=== PATIENT | female | born 1940 | race Caucasian/White ===

== ENCOUNTER 2018-07-09 09:19 | Observation (INO) | payer OTHER ==
--- NOTE | 2018-07-09 10:09 | RAD REPORT ---
EXAM DESCRIPTION: CT - Head Brain Wo Cont - 07/09/2018 10:03 am CLINICAL HISTORY: DIZZINESS Drowsiness COMPARISON: Ct Stroke Brain Wo Cont dated 09/28/2016 TECHNIQUE: All CT scans are performed using dose optimization technique as appropriate and may inclu de automated exposure control or mA/KV adjustment according to patient size. FINDINGS: No intracranial hemorrhage, hydrocephalus or extra-axial fluid collection.Mild generalized brain atrophy is present with moderate periventricular and deep white matter chronic microvascular i schemic changes.No areas of brain edema or evidence of midline shift. The paranasal sinuses and mastoids are clear. The calvarium is intact. IMPRESSION: No acute intracranial abnormality.
--- NOTE | 2018-07-09 10:15 | RAD REPORT ---
EXAM DESCRIPTION: RAD - Chest Single View - 07/09/2018 10:10 am CLINICAL HISTORY: COUGH Chest pain. COMPARISON: Chest Single View dated 09/28/2016; CHEST PA AND LAT 2 VIEW dated 10/24/2014; CHEST PA AND LAT 2 VIEW dated 08/12/2010; CHEST PA AND LAT 2 VIEW dated 05/24/2002 FINDINGS: Portable technique limits examination quality. Mild interstitial pulmonary edema is noted. Calcified granuloma is present in the right lung, stable. The heart is moderately enlarged. Aortic atherosclerosis.Mild thoracic dextroscoliosis. IMPRESSION: Mild CHF.
[2018-07-09] MEDS ORDERED: ONDANSETRON 4 MG/2 ML VIAL ONE (10:25)
[2018-07-09] MEDS ORDERED: NA CHLORIDE 0.9% 1,000 ML ONE (10:25)
[2018-07-09] MEDS ORDERED: MECLIZINE HCL 12.5 MG TAB ONE (10:25)
[2018-07-09] MEDS ORDERED: FOLIC ACID 5 MG/ML VIAL ONE (10:26)
--- NOTE | 2018-07-09 10:35 | RAD REPORT ---
EXAM DESCRIPTION: US - CP - 07/09/2018 10:28 am CLINICAL HISTORY: DIZZINESS Syncope COMPARISON: Carotid Artery Bilateral dated 09/28/2016 TECHNIQUE: Real-time sonographic evaluation of both carotid systems was performed. Doppler interroga tion was performed with waveform tracing bilaterally. FINDINGS: Normal high resistance waveforms are noted in both external carotid arteries. The common c arotid arteries and internal carotid arteries show normal low resistance waveforms. Mild hard plaquing is seen in both carotid bulbs. Peak systolic and end diastolic velocity values and the ICA/CCA ratios are in the non-hemodynamically significant range. Antegrade flow seen in both vertebral arteries. IMPRESSION: Mild hard plaquing is seen in both carotid bulbs. No evidence of a hemodynamically significant stenosis.
[2018-07-09 10:57] LABS: Absolute Lymphocytes (CBC) 1.2 K/uL (0.7-4.9); Absolute Monocytes 0.4 K/uL (0.1-1.3); Absolute Neutrophil 4.6 K/uL (1.8-8.0); Basophils % 0.7 % (0-1.3); Eosinophils % 1.6 % (0-4.4); Hematocrit 40.7 % (36.0-45.0); Lymphocytes % 18.8 % (15.3-44.8); MPV 10.5 fL (7.6-11.3); RBC Red Blood Cell Count 4.02 M/uL (3.86-4.86)
[2018-07-09 11:12] LABS: Urine Blood 1+ (NEG); Urine Glucose NEGATIVE (NEG); Urine Protein NEGATIVE (NEG); Urine pH 7.5 (5.0-7.0)
[2018-07-09 11:14] LABS: ALT/SGPT 17 U/L (12-78); AST/SGOT 17 U/L (15-37); Albumin 3.6 g/dL (3.4-5.0); Alkaline Phosphatase 80 U/L (45-117); BUN Blood Urea Nitrogen 19 mg/dL (7-18); Bicarbonate 24 mmol/L (21-32); Bilirubin Direct 0.2 mg/dL (0-0.2); Bilirubin Total 0.7 mg/dL (0.2-1.0); C-Reactive Protein < 2.90 mg/L (<3.00); Glucose Level 103 mg/dL (74-106); Magnesium 2.2 mg/dL (1.8-2.4); NT PRO-BNP 829 pg/mL (<450); Potassium 3.8 mmol/L (3.5-5.1); Sodium Level 138 mmol/L (136-145); Troponin (Emerg Dept Use Only) < 0.02 ng/mL (0.0-0.045)
--- NOTE | 2018-07-09 11:30 | ER ---
Nurse's Notes [facility] Name: Jessica Bridges Age: 78 yrs Sex: Female : 1940 Arrival Date: 07/09/2018 Time: 09:23 Bed 6 Private MD: Amadou Celeste Diagnosis: Dizziness and giddiness;Nausea;Headache Presentation: 07/09 09:46 Presenting complaint: Patient states: Woke up at 0630 and felt normal. About 0730 jl7 sudden onset of severe dizziness and nausea. Transition of care: patient was not received from another setting of care. Onset of symptoms was July 09, 2018 at 07:30. Risk Assessment: Do you want to hurt yourself or someone else? Patient reports no desire to harm self or others. Initial Sepsis Screen: Does the patient meet any 2 criteria? No. Patient's initial sepsis screen is negative. Does the patient have a suspected source of infection? No. Patient's initial sepsis screen is negative. Care prior to arrival: None. 09:46 Method Of Arrival: Wheelchair [facility] 09:46 Acuity: HECTOR 3 jl7 Historical: - Allergies: 09:53 Codeine; jl7 - Home Meds: 10:04 atorvastatin 40 mg Oral tab 1 tab once daily [Active]; levothyroxine 137 mcg tab 1 tab aj once daily [Active]; lisinopril 20 mg Oral tab 1 tab once daily [Active]; meloxicam 15 mg Oral tab 1 tab once daily as needed for osteoarthritis [Active]; furosemide 20 mg Oral tab [Active]; aspirin 81 mg Oral TbEC 1 tab once daily [Active]; - PMHx: 09:53 Arthritis; Hyperlipidemia; Hypertension; Hypothyroidism; lymphedema; jl7 - Immunization history:: Adult Immunizations up to date. - Social history:: Smoking status: Patient/guardian denies using tobacco. - Family history:: not pertinent. - Ebola Screening: : No symptoms or risks identified at this time. Screenin:50 Abuse screen: Denies threats or abuse. Denies injuries from another. Nutritional aj screening: No deficits noted. Tuberculosis screening: No symptoms or risk factors identified. 14:29 Fall Risk None identified. aj Assessment: 10:50 General: Appears in no apparent distress. comfortable, Behavior is calm, cooperative, aj appropriate for age. Pain: Denies pain. Neuro: Level of Consciousness is awake, alert, obeys commands, Oriented to person, place, time, situation, Appropriate for age. Neuro: Dramatic Reader are equal bilaterally Moves all extremities. Full function Gait is unsteady, Speech is normal, Facial symmetry appears normal, Reports dizziness. Respiratory: Airway is patent Respiratory effort is even, unlabored, Respiratory pattern is regular, symmetrical. GI: Abdomen is obese. GI: Reports nausea, vomiting. Derm: Skin is intact, is healthy with good turgor, Skin is pink, warm \T\ dry. normal. 14:29 Reassessment: Patient appears in no apparent distress at this time. No changes from aj previously documented assessment. Patient and/or family updated on plan of care and expected duration. Pain level reassessed. Patient is alert, oriented x 3, equal unlabored respirations, skin warm/dry/pink. Family at bedside. Patient is urinating frequently, approx every 30 minutes. Bedside commode was provided to patient. Vital Signs: 09:53 BP 168 / 68; Pulse 73; Resp 19 S; Temp 97.8(O); Pulse Ox 96% on R/A; Weight 102.51 kg jl7 (R); Height 5 ft. 4 in. (162.56 cm) (R); Pain 0/10; 14:28 BP 143 / 65; Pulse 73; Resp 17; Pulse Ox 97% on R/A; aj 09:53 Body Mass Index 38.79 (102.51 kg, 162.56 cm) jl7 NIH Stroke Scale Scores: 09:48 NIHSS Score: 0 tere ED Course: 09:23 Patient arrived in ED. sb2 09:24 Amadou Celeste DO is Private Physician. sb2 09:33 Abhishek Jung MD is Attending Physician. tere 09:45 Araseli Logan, LENARD is Primary Nurse. jl7 09:52 Triage completed. jl7 09:53 Arm band placed on right wrist. jl7 10:03 CT Head Brain wo Cont In Process Unspecified. EDMS 10:05 Maria Elena Mejia, RN is Primary Nurse. aj 10:08 X-ray completed. Patient tolerated procedure well. Patient taken to ultrasound. via sg4 stretcher. 10:10 XRAY Chest (1 view) In Process Unspecified. EDMS 10:29 Ultrasound completed. Patient tolerated well. sg3 10:29 US Carotid Artery Bilateral In Process Unspecified. EDMS 10:50 Patient has correct armband on for positive identification. 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 Pulse aj ox on. NIBP on. 10:50 Inserted saline lock: 20 gauge in left antecubital area, using aseptic technique. aj 11:29 Macy Mehta MD is Hospitalizing Provider. tere 14:29 No provider procedures requiring assistance completed. Patient admitted, IV remains in aj place. intact. Administered Medications: 10:55 Drug: Zofran 4 mg Route: IVP; Site: left antecubital; bp 14:37 Follow up: Response: Nausea is decreased aj 10:57 Drug: Meclizine 50 mg Route: PO; aj 14:33 Follow up: Response: Marked relief of symptoms aj 10:58 Drug: NS 0.9% 1000 ml Route: IV; Rate: 125 ml/hr; Site: left antecubital; aj 14:38 Follow up: Response: No adverse reaction; IV Status: Order to discontinue infusion; IV aj Intake: 250ml 10:58 Drug: foLIC Acid 1 mg Route: IVPB; Site: left antecubital; aj 14:38 Follow up: Response: No adverse reaction; IV Status: Completed infusion; IV Intake: aj 0.2ml 10:59 Drug: NS 0.9% 500 ml Route: IV; Rate: bolus; Site: left antecubital; aj 14:39 Follow up: Response: No adverse reaction; IV Status: Completed infusion; IV Intake: aj 500ml 14:36 Drug: PlaVIX 75 mg Route: PO; aj 14:37 Follow up: Response: No adverse reaction aj 14:37 Not 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 aj 14:38 IV: 250ml; Total: 250ml. aj 14:39 IV: 500ml; Total: 750ml. aj Outcome: 11:30 Decision to Hospitalize by Provider. tere 14:29 Admitted to Med/surg accompanied by tech, family with patient, via wheelchair, room aj 229, Report called to Brandi WEINBERG 14:29 Condition: good 14:29 Instructed on the need for admit. 14:51 Patient left the ED. aj NIH Stroke Scale - NIH Stroke Score Date: 07/09/2018 Time: 09:48 Total Score = 0 1a. Level of Consciousness (LOC) - 0(Alert) 1b. Level of Consciousness (LOC) (Year \T\ Age) - 0(Both) 1c. LOC Commands (Open \T\ Closes Eyes/Inside Steward/Stewardess) - 0(Both) 2. Best Gaze (Lateral Gaze Paresis) - 0(Normal) 3. Visual Field Loss - 0(No visual loss) 4. Facial Palsy - 0(Normal) 5a. Left Arm: Motor (10-second hold) - 0(No drift) 5b. Right Arm: Motor (10-second hold) - 0(No drift) 6a. Left Leg: Motor (5-second hold - always test supine) - 0(No drift) 6b. Right Leg: Motor (5-second hold - always test supine) - 0(No drift) 7. Limb Ataxia (finger/nose \T\ heel/mendoza - test with eyes open) - 0(Absent) 8. Sensory Loss (pinprick arms/legs/face) - 0(Normal) 9. Best Language: Aphasia (description/naming/reading) - 0(No aphasia) 10. Dysarthria (speech clarity - read or repeat words) - 0(Normal) 11. Extinction and Inattention (visual/tactile/auditory/spatial/personal) - 0(No abnormality) Initials: tere Signatures: Dispatcher [employer] Maria Elena Graham RN RN aj Anderson, Corey, MD MD cha Leal, Jahala, RN RN jl7 Tevin Hernandez, Tiffanie Crowe RN sg3 Keri Reyes2 Nita Jang sg4
--- NOTE | 2018-07-09 11:31 | EDPHYS ---
Physician Documentation [facility] Name: Jessica Bridges Age: 78 yrs Sex: Female : 1940 Arrival Date: 07/09/2018 Time: 09:23 Bed 6 Private MD: Amadou Celeste ED Physician Abhishek Jung HPI: 07/09 09:46 This 78 yrs old Female presents to ER via Unassigned with complaints of tere Dizziness, Nausea. 09:46 The patient presents with dizziness. Onset: The symptoms/episode began/occurred this tere morning. Context: occurred at home. Modifying factors: The symptoms are alleviated by closing eyes, holding head still, the symptoms are aggravated by movement of head, changing position. Associated signs and symptoms: Pertinent positives: nausea, vomiting. Severity of symptoms: At their worst the symptoms were moderate in the emergency department the symptoms are unchanged. Patient's baseline: Neuro:. The patient has not experienced similar symptoms in the past. Historical: - Allergies: 09:53 Codeine; jl7 - Home Meds: 10:04 atorvastatin 40 mg Oral tab 1 tab once daily [Active]; levothyroxine 137 mcg tab 1 tab aj once daily [Active]; lisinopril 20 mg Oral tab 1 tab once daily [Active]; meloxicam 15 mg Oral tab 1 tab once daily as needed for osteoarthritis [Active]; furosemide 20 mg Oral tab [Active]; aspirin 81 mg Oral TbEC 1 tab once daily [Active]; - PMHx: 09:53 Arthritis; Hyperlipidemia; Hypertension; Hypothyroidism; lymphedema; jl7 - Immunization history:: Adult Immunizations up to date. - Social history:: Smoking status: Patient/guardian denies using tobacco. - Family history:: not pertinent. - Ebola Screening: : No symptoms or risks identified at this time. ROS: 09:46 Constitutional: Negative for fever, chills, and weight loss, Eyes: Negative for injury, tere pain, redness, and discharge, ENT: Negative for injury, pain, and discharge, Neck: Negative for injury, pain, and swelling, Cardiovascular: Negative for chest pain, palpitations, and edema, Respiratory: Negative for shortness of breath, cough, wheezing, and pleuritic chest pain, Abdomen/GI: Negative for abdominal pain, nausea, vomiting, diarrhea, and constipation, Back: Negative for injury and pain, : Negative for injury, bleeding, discharge, and swelling, MS/Extremity: Negative for injury and deformity, Skin: Negative for injury, rash, and discoloration, Neuro: Negative for headache, weakness, numbness, tingling, and seizure, Psych: Negative for depression, anxiety, suicide ideation, homicidal ideation, and hallucinations, Allergy/Immunology: Negative for hives, rash, and allergies, Endocrine: Negative for neck swelling, polydipsia, polyuria, polyphagia, and marked weight changes, Hematologic/Lymphatic: Negative for swollen nodes, abnormal bleeding, and unusual bruising. Exam: 09:48 Constitutional: This is a well developed, well nourished patient who is awake, alert, tere and in no acute distress. Head/Face: Normocephalic, atraumatic. Eyes: Pupils equal round and reactive to light, extra-ocular motions intact. Lids and lashes normal. Conjunctiva and sclera are non-icteric and not injected. Cornea within normal limits. Periorbital areas with no swelling, redness, or edema. ENT: Nares patent. No nasal discharge, no septal abnormalities noted. Tympanic membranes are normal and external auditory canals are clear. Oropharynx with no redness, swelling, or masses, exudates, or evidence of obstruction, uvula midline. Mucous membranes moist. Neck: Trachea midline, no thyromegaly or masses palpated, and no cervical lymphadenopathy. Supple, full range of motion without nuchal rigidity, or vertebral point tenderness. No Meningismus. Chest/axilla: Normal chest wall appearance and motion. Nontender with no deformity. No lesions are appreciated. Cardiovascular: Regular rate and rhythm with a normal S1 and S2. No gallops, murmurs, or rubs. Normal PMI, no JVD. No pulse deficits. Respiratory: Lungs have equal breath sounds bilaterally, clear to auscultation and percussion. No rales, rhonchi or wheezes noted. No increased work of breathing, no retractions or nasal flaring. Abdomen/GI: Soft, non-tender, with normal bowel sounds. No distension or tympany. No guarding or rebound. No evidence of tenderness throughout. Back: No spinal tenderness. No costovertebral tenderness. Full range of motion. Skin: Warm, dry with normal turgor. Normal color with no rashes, no lesions, and no evidence of cellulitis. MS/ Extremity: Pulses equal, no cyanosis. Neurovascular intact. Full, normal range of motion. Neuro: Awake and alert, GCS 15, oriented to person, place, time, and situation. Cranial nerves II-XII grossly intact. Motor strength 5/5 in all extremities. Sensory grossly intact. Cerebellar exam normal. Normal gait. Psych: Awake, alert, with orientation to person, place and time. Behavior, mood, and affect are within normal limits. Vital Signs: 09:53 BP 168 / 68; Pulse 73; Resp 19 S; Temp 97.8(O); Pulse Ox 96% on R/A; Weight 102.51 kg jl7 (R); Height 5 ft. 4 in. (162.56 cm) (R); Pain 0/10; 14:28 BP 143 / 65; Pulse 73; Resp 17; Pulse Ox 97% on R/A; aj 09:53 Body Mass Index 38.79 (102.51 kg, 162.56 cm) jl7 NIH Stroke Scale Scores: 09:48 NIHSS Score: 0 tere MDM: 09:33 Patient medically screened. tere 09:50 Data reviewed: vital signs, nurses notes, lab test result(s), EKG, radiologic studies, [facility] CT scan, doppler, plain films. 01 09:45 Order name: Basic Metabolic Panel [facility] 07/09 09:45 Order name: CBC with Diff [facility] 07/09 09:45 Order name: LFT's; Complete Time: 11:53 [facility] 07/09 09:45 Order name: Magnesium; Complete Time: 11:53 [facility] 07/09 09:45 Order name: NT PRO-BNP; Complete Time: 11:53 [facility] 07/09 09:45 Order name: PT-INR; Complete Time: 11:53 [facility] 07/09 09:45 Order name: Troponin (emerg Dept Use Only); Complete Time: 11:53 [facility] 07/09 09:45 Order name: XRAY Chest (1 view); Complete Time: 10:25 [facility] 07/09 09:45 Order name: Urine Culture [facility] 07/09 09:45 Order name: Sed Rate; Complete Time: 11:53 [facility] 07/09 09:45 Order name: CRP; Complete Time: 11:53 [facility] 07/09 09:46 Order name: Basic Metabolic Panel; Complete Time: 11:53 EDMS 01/06 09:46 Order name: CBC with Automated Diff; Complete Time: 11:53 [facility] 07/09 10:47 Order name: Urine Dipstick--Ancillary (enter results); Complete Time: 11:53 07/09 09:45 Order name: EKG; Complete Time: 09:47 [facility] 07/09 09:45 Order name: Cardiac monitoring; Complete Time: 11:00 [facility] 07/09 09:45 Order name: EKG - Nurse/Tech; Complete Time: 11:00 [facility] 07/09 09:45 Order name: IV Saline Lock; Complete Time: 11:00 [facility] 07/09 09:45 Order name: Labs collected and sent; Complete Time: 11:00 [facility] 07/09 09:45 Order name: O2 Per Protocol; Complete Time: 11:00 [facility] 07/09 09:46 Order name: CT Head Brain wo Cont; Complete Time: 10:25 [facility] 07/09 09:46 Order name: US Carotid Artery Bilateral; Complete Time: 11:12 [facility] 07/09 11:35 Order name: CONS Physician Consult [facility]WI 07/09 09:45 Order name: O2 Sat Monitoring; Complete Time: 11:00 [facility] 07/09 09:45 Order name: Urine Dipstick-Ancillary (obtain specimen); Complete Time: 11:01 [facility] Administered Medications: 10:55 Drug: Zofran 4 mg Route: IVP; Site: left antecubital; bp 14:37 Follow up: Response: Nausea is decreased aj 10:57 Drug: Meclizine 50 mg Route: PO; aj 14:33 Follow up: Response: Marked relief of symptoms aj 10:58 Drug: NS 0.9% 1000 ml Route: IV; Rate: 125 ml/hr; Site: left antecubital; aj 14:38 Follow up: Response: No adverse reaction; IV Status: Order to discontinue infusion; IV aj Intake: 250ml 10:58 Drug: foLIC Acid 1 mg Route: IVPB; Site: left antecubital; aj 14:38 Follow up: Response: No adverse reaction; IV Status: Completed infusion; IV Intake: aj 0.2ml 10:59 Drug: NS 0.9% 500 ml Route: IV; Rate: bolus; Site: left antecubital; aj 14:39 Follow up: Response: No adverse reaction; IV Status: Completed infusion; IV Intake: aj 500ml 14:36 Drug: PlaVIX 75 mg Route: PO; aj 14:37 Follow up: Response: No adverse reaction aj 14:37 Not Given (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 Preliminary diagnosis are Dizziness and giddiness, Nausea, Headache. - Bed requested for Telemetry/MedSurg (observation). - Status is Observation. aj - Condition is Fair. - Problem is new. - Symptoms have improved. UTI on Admission? No NIH Stroke Scale - NIH Stroke Score Date: 07/09/2018 Time: 09:48 Total Score = 0 1a. Level of Consciousness (LOC) - 0(Alert) 1b. Level of Consciousness (LOC) (Year \T\ Age) - 0(Both) 1c. LOC Commands (Open \T\ Closes Eyes/Library Aide) - 0(Both) 2. Best Gaze (Lateral Gaze Paresis) - 0(Normal) 3. Visual Field Loss - 0(No visual loss) 4. Facial Palsy - 0(Normal) 5a. Left Arm: Motor (10-second hold) - 0(No drift) 5b. Right Arm: Motor (10-second hold) - 0(No drift) 6a. Left Leg: Motor (5-second hold - always test supine) - 0(No drift) 6b. Right Leg: Motor (5-second hold - always test supine) - 0(No drift) 7. Limb Ataxia (finger/nose \T\ heel/mendoza - test with eyes open) - 0(Absent) 8. Sensory Loss (pinprick arms/legs/face) - 0(Normal) 9. Best Language: Aphasia (description/naming/reading) - 0(No aphasia) 10. Dysarthria (speech clarity - read or repeat words) - 0(Normal) 11. Extinction and Inattention (visual/tactile/auditory/spatial/personal) - 0(No abnormality) Initials: tere Signatures: Dispatcher [employer] Phuong Galan RN Maria Elena Ariza RN RN Abhishek Santizo MD MD cha Leal, Jahala, RN RN jlTevin Yates RN RN bp Corrections: (The following items were deleted from the chart) 09:48 09:46 Neck: Negative for tere tere 14:11 11:30 Hospitalization Ordered by Macy Mehta MD for Observation. Preliminary dw diagnosis is Dizziness and giddiness; Nausea; Headache. Bed requested for Telemetry/MedSurg (observation). Status is Observation. Condition is Fair. Problem is new. Symptoms have improved. UTI on Admission? No. tere 14:51 14:11 07/09/2018 11:30 Hospitalization Ordered by Macy Mehta MD for aj Observation. Preliminary diagnosis is Dizziness and giddiness; Nausea; Headache. Bed requested for Telemetry/MedSurg (observation). Status is Observation. Condition is Fair. Problem is new. Symptoms have improved. UTI on Admission? No. dw
--- NOTE | 2018-07-09 14:24 | P.HP ---
Certification for Inpatient Patient admitted to: Observation With expected LOS: <2 Midnights Patient will require the following post-hospital care: None Practitioner: I am a practitioner with admitting privileges, knowledge of patient current condition, hospital course, and medical plan of care. Services: Services provided to patient in accordance with Admission requirements found in Title 42 Section 412.3 of the Code of Federal Regulations Patient History Date of Service: 07/09/18 History of Present Illness: Patient is a 78-year-old female with significant past medical history who presented to the ED complaining of having some dizziness. Patient stated that when she woke up this morning and got out of bed was going to the bathroom she started having dizziness and had room spinning around her. Her caught her before she fell down to the floor. Patient also complains of having some nausea and vomiting that started this morning as well. Patient has never had similar episodes in the past as a 1st time it has happened. No other neurological symptoms were noted. Patient denies having any chest pain shortness of breath, constipation or any other associated symptoms at this time. Allergies codeine Allergy (Severe, Verified 07/10/18 07:36) Nausea/Vomiting Home Medications: Atorvastatin Calcium [Lipitor] 40 mg PO BEDTIME 09/28/16 Levothyroxine [Synthroid*] 137 mcg PO [id number] 09/28/16 Lisinopril [Prinivil*] 20 mg PO DAILY 09/28/16 Meloxicam [Mobic] 15 mg PO DAILY 09/28/16 Aspirin [Ecotrin 81 MG] 162 mg PO DAILY #60 tablet. 09/29/16 Cholecalciferol (Vitamin D3) [Vitamin D3] 1 cap PO DAILY 07/09/18 Multivitamin [Daily Multivitamin] 1 tab PO DAILY 07/09/18 Meclizine HCl 12.5 mg PO BID PRN #30 tablet 07/10/18 - Past Medical/Surgical History Diabetic: No -: HTN -: arthritis -: hyperlipidemia -: knee surgery - Family History Father -: Lung disease, Other (see notes) Notes: arthritis Mother -: Stroke - Social History Alcohol use: No CD- Drugs: No Caffeine use: Yes Review of Systems 10-point ROS is otherwise unremarkable Physical Examination - Physical Exam General: Alert, In no apparent distress HEENT: Atraumatic, PERRLA, Mucous membr. moist/pink, Other (Nystagmus noted), EOMI, Sclerae nonicteric Neck: Supple, 2+ carotid pulse no bruit, No LAD, Without JVD or thyroid abnormality Respiratory: Clear to auscultation bilaterally, Normal air movement Cardiovascular: Regular rate/rhythm, Normal S1 S2 Gastrointestinal: Normal bowel sounds, No tenderness Musculoskeletal: No tenderness Integumentary: No rashes Neurological: Normal gait, Normal speech, Normal strength at 5/5 x4 extr, Normal tone, Normal affect Lymphatics: No axilla or inguinal lymphadenopathy - Studies Laboratory Data (last 24 hrs) 07/09/18 10:44: PT 11.8, INR 1.00 07/09/18 10:44: WBC 6.3, Hgb 13.3, Hct 40.7, Plt Count 212 07/09/18 10:44: Sodium 138, Potassium 3.8, BUN 19 H, Creatinine 0.56, Glucose 103, Magnesium 2.2, Total Bilirubin 0.7, AST 17, ALT 17, Alkaline Phosphatase 80 Assessment and Plan - Problems (Diagnosis) (1) BPPV (benign paroxysmal positional vertigo) Onset Date: 07/10/18 Status: Acute Plan: Patient is no vomiting along with vertical most likely consistent with benign paroxysmal positional vertigo secondary to dehydration -will admit the patient to rule out any acute abnormalities. -brain MRI is pending at this time. Neurology consult is pending at this time as well. -patient will be started on meclizine p.r.n. at this time. -IV fluid Qualifiers: Laterality: unspecified laterality Qualified Code(s): H81.10 - Benign paroxysmal vertigo, unspecified ear (2) Intractable nausea and vomiting Onset Date: 07/10/18 Status: Acute Plan: IV Zofran. Qualifiers: Vomiting type: cyclical vomiting Qualified Code(s): G43.A1 - Cyclical vomiting, intractable (3) Dizziness Onset Date: 09/29/16 Status: Acute Plan: Fall precautions given. (4) Near syncope Onset Date: 09/29/16 Status: Acute Plan: Fall precautions given - Plan Patient will be admitted to the medical-surgical floor for rule out of any acute abnormality and will be seen by neurology here in the hospital. Discharge Plan: Home Plan to discharge in: 48 Hours - Advance Directives Does patient have a Living Will: No Does patient have a Durable POA for Healthcare: No - Code Status/Comfort Care Code Status Assessed: Yes Critical Care: No
[2018-07-09] MEDS ORDERED: CLOPIDOGREL 75 MG TABLET ONE (14:44)
[2018-07-09] MEDS ORDERED: NA CHLORIDE 0.9% 1,000 ML IV SCH (15:07)
[2018-07-09] MEDS ORDERED: ACETAMINOPHEN 500 MG TAB PO PRN (15:07)
[2018-07-09] MEDS ORDERED: MECLIZINE HCL 12.5 MG TAB PO PRN (15:07)
[2018-07-09] MEDS ORDERED: ONDANSETRON 4 MG/2 ML VIAL IV PRN (15:07)
[2018-07-09 16:11] VITALS: BMI 38.7
[2018-07-09] MEDS ORDERED: ENOXAPARIN 40 MG/0.4 ML SQ SCH (17:00)
[2018-07-10 00:15] VITALS: O2SAT 94
--- NOTE | 2018-07-10 06:26 | EKG ---
Test Date: 2018-07-09 Test Time: 10:44:47 Rolling Machine Operator: ELEN MEASUREMENT RESULTS: Intervals: Rate: 74 IN: 180 QRSD: 110 QT: 428 QTc: 475 [place]: P: 76 IN: 180 QRS: -21 T: 69 INTERPRETIVE STATEMENTS: Normal sinus rhythm Normal ECG Compared to ECG 09/28/2016 10:32:18 Left ventricular hypertrophy no longer present Electronically Signed On 07-10-18 06:19:38 BOWLING BALL MOLDER by Martin Vinson
[2018-07-10 06:27] LABS: Absolute Monocytes 0.5 K/uL (0.1-1.3); Absolute Neutrophil 2.7 K/uL (1.8-8.0); Basophils % 0.6 % (0-1.3); Eosinophils % 5.8 % (0-4.4); Lymphocytes % 35.9 % (15.3-44.8); MPV 10.3 fL (7.6-11.3); Monocytes % 9.4 % (3.3-12.3); RBC Red Blood Cell Count 3.83 M/uL (3.86-4.86)
[2018-07-10 06:48] LABS: ALT/SGPT 16 U/L (12-78); AST/SGOT 15 U/L (15-37); Albumin 3.5 g/dL (3.4-5.0); Alkaline Phosphatase 74 U/L (45-117); BUN Blood Urea Nitrogen 16 mg/dL (7-18); Bicarbonate 28 mmol/L (21-32); Bilirubin Total 0.7 mg/dL (0.2-1.0); Glucose Level 85 mg/dL (74-106); Potassium 3.9 mmol/L (3.5-5.1); Protein, Total 6.7 g/dL (6.4-8.2); Sodium Level 143 mmol/L (136-145)
[2018-07-10] MEDS ORDERED: POTASSIUM CL SA 10 MEQ TAB PO ONE (07:23)
--- NOTE | 2018-07-10 12:56 | RAD REPORT ---
EXAM DESCRIPTION: MRI - Brain Wo Cont - 07/10/2018 12:47 pm CLINICAL HISTORY: Presyncope Headache, nausea, drowsiness COMPARISON: Head Brain Wo Cont dated 07/09/2018; Carotid Artery Bilateral dated 07/09/2018; Brain Wo Con t dated 09/28/2016; Ct Stroke Brain Wo Cont dated 09/28/2016 TECHNIQUE: Multi-sequence, multiplanar MR imaging of the brain was performed without contrast. FINDINGS: No intracranial hemorrhage, hydrocephalus or extra-axial fluid collections. Moderate confl uent T2 and FLAIR hyperintensity in the periventricular and deep white matter. DWI is negative for ac sun'aq CVA. Degenerative changes are present in the upper cervical spine with spondylosis. Trace mastoid fluid is present. Paranasal sinuses appear clear. IMPRESSION: No acute intracranial abnormality seen. Moderate chronic microvascular ischemic changes are seen. Prominent spondylosis with probable spinal stenosis in the upper cervical spine.
[2018-07-10 14:07] VITALS: BP 152/70; TEMP 98.7
--- NOTE | 2018-07-10 16:06 | P.SSS ---
Patient History Date of Service: 07/10/18 History of Present Illness: Patient is a 78-year-old female with significant past medical history who presented to the ED complaining of having some dizziness. Patient stated that when she woke up this morning and got out of bed was going to the bathroom she started having dizziness and had room spinning around her. Her caught her before she fell down to the floor. Patient also complains of having some nausea and vomiting that started this morning as well. Patient has never had similar episodes in the past as a 1st time it has happened. No other neurological symptoms were noted. Patient denies having any chest pain shortness of breath, constipation or any other associated symptoms at this time. Allergies codeine Allergy (Severe, Verified 07/10/18 07:36) Nausea/Vomiting Home Medications: Atorvastatin Calcium [Lipitor] 40 mg PO BEDTIME 09/28/16 Levothyroxine [Synthroid*] 137 mcg PO [id number] 09/28/16 Lisinopril [Prinivil*] 20 mg PO DAILY 09/28/16 Meloxicam [Mobic] 15 mg PO DAILY 09/28/16 Aspirin [Ecotrin 81 MG] 162 mg PO DAILY #60 tablet. 09/29/16 Cholecalciferol (Vitamin D3) [Vitamin D3] 1 cap PO DAILY 07/09/18 Multivitamin [Daily Multivitamin] 1 tab PO DAILY 07/09/18 Meclizine HCl 12.5 mg PO BID PRN #30 tablet 07/10/18 - Past Medical/Surgical History Has patient received pneumonia vaccine in the past: Yes Diabetic: No -: HTN -: arthritis -: hyperlipidemia -: knee surgery - Family History Father -: Lung disease, Other (see notes) Notes: arthritis Mother -: Stroke - Social History Smoking Status: Never smoker Alcohol use: No CD- Drugs: No Caffeine use: Yes Place of Residence: Home Review of Systems 10-point ROS is otherwise unremarkable Physical Examination - Vital Signs Temperature: 98.7 F Blood Pressure: 152/70 Pulse: 74 Respirations: 20 Pulse Ox (%): 98 - Physical Exam General: Alert, In no apparent distress HEENT: Atraumatic, PERRLA, Mucous membr. moist/pink, EOMI, Sclerae nonicteric Neck: Supple, 2+ carotid pulse no bruit, No LAD, Without JVD or thyroid abnormality Respiratory: Clear to auscultation bilaterally, Normal air movement Cardiovascular: Regular rate/rhythm, Normal S1 S2 Gastrointestinal: Normal bowel sounds, No tenderness Musculoskeletal: No tenderness Integumentary: No rashes Neurological: Normal gait, Normal speech, Normal strength at 5/5 x4 extr, Normal tone, Normal affect Lymphatics: No axilla or inguinal lymphadenopathy - Diagnosis (Problem(s)) (1) BPPV (benign paroxysmal positional vertigo) Onset Date: 07/10/18 Status: Acute Plan: Patient is no vomiting along with vertical most likely consistent with benign paroxysmal positional vertigo secondary to dehydration -Brain MRI was negative. Patient is vertigo had resolved. -neurology recommended patient to be discharged home safely with prescription of meclizine p.r.n.. Qualifiers: Laterality: unspecified laterality Qualified Code(s): H81.10 - Benign paroxysmal vertigo, unspecified ear (2) Intractable nausea and vomiting Onset Date: 07/10/18 Status: Resolved Qualifiers: Vomiting type: cyclical vomiting Qualified Code(s): G43.A1 - Cyclical vomiting, intractable (3) Dizziness Onset Date: 09/29/16 Status: Resolved (4) Near syncope Onset Date: 09/29/16 Status: Acute - Disposition Disposition: ROUTINE DISCHARGE Condition: GOOD Diet: Regular Activity: Ad kalia
--- NOTE | 2018-07-10 19:06 | CON ---
Date of Consultation: 07/10/2018 Time: 1330. Reason: Vertigo. History: An 78-year-old lady with a past medical history significant for hyperlipidemia and hyperten adela as well as hypothyroidism. She was in her usual state of health until yesterday when she had re latively abrupt onset of vertigo. It occurred while she was standing, getting ready to go to the [facility]. She nearly fell. There was some associated nausea, slight headache, but no diplopia, dysarthri a, perioral numbness, extremity weakness, or emesis. Brought to the emergency department. CT scan o f the brain in the emergency department unremarkable. Given some meclizine 50 and that resulted in i mprovement in her symptoms. There was no aural fullness, tinnitus, or otalgia associated with the ep isode. Labs are normal. Sedimentation rate 13. Cardiac evaluation unremarkable. Creatinine 0.56 i n the ER. Consultation was requested. Past Medical History: As alluded to. Medications: Routinely multivitamin, vitamin D, Lipitor has been added, aspirin, meloxicam, Prinivil , Synthroid, and meclizine 12.5 as needed presently. Allergies: CODEINE. Social History: . No longer smokes. Normally independent with activities of daily living. Family History: Noncontributory. Review of Systems: General: Good health. Eyes: No diplopia. Ears, Nose, and Throat: No dysarthria. Cardiovascular: Hypertension. Pulmonary: Negative. GI: Nausea with the episode. : Negative. Musculoskeletal: Negative. Neurologic: As noted. Psychiatric: Negative. Endocrine: Hypothyroidism. Hematologic: Negative. Physical Examination: Vital Signs: 97.8, 57, 18, 144/71. General: A pleasant lady, sitting in bed, in no distress, awake, alert, oriented to time, person, pl ginette, and situation. HEENT: Tympanic membranes clear. Pupils reactive. Ocular motion full. Ramirez full. No nystagmus. Head thrust test to right does demonstrate catch-up ocular saccade, suggesting labyrinthine dysfunc tion. Facial strength and sensation normal. Tongue protrudes evenly. Soft palate elevates symmetri asael bilaterally. Extremities: Strength full. Sensation intact. Reflexes 1/4. Symmetric toes are downgoing. Cerebe llar exam demonstrates no ataxia. She is able to ambulate with a cane. Pertinent Laboratory Data: As noted in history of present illness. Brain MRI unremarkable, no acute infarct. Prominent spondylosis and possible stenosis in the upper cervical spine unrelated to sympt om complex. Impression: Vertigo, likely viral labyrinthitis. Problem was not particularly positional. Plan: I think she is safe to go home. Continue Antivert as needed. Taper that down over the ensuin g 3 to 4 days. Thank you for the consult. LILI Voice ID: [id number] Report ID: [id number]
== END 2018-07-10 13:54 | disposition home or self-care (01) ==
LOC: ER 09:19 → ERHOLD 11:33 → 2ND 14:30
PROVIDERS: ADMIT Family Medicine; ATTEND Family Medicine
DX: H81.10 Benign paroxysmal vertigo, unspecified ear (principal); R11.2 Nausea with vomiting, unspecified; I10 Essential (primary) hypertension; E78.5 Hyperlipidemia, unspecified; E03.9 Hypothyroidism, unspecified
CPT/HCPCS: 36415; 70450; 70551; 71045; 80048; 80053; 80076; 81003; 83735; 83880; 84484; 85025 ×2; 85610; 85652; 86140; 87088; 93005; 93880; 96365; 96366; 96375; 99285; G0378 ×2; J1650; J2405; J7030 ×2; 87086

== ENCOUNTER 2020-09-09 15:21 | Inpatient (IN) | payer OTHER ==
--- NOTE | 2020-09-09 13:58 | R.PREADM ---
PRE-ADMISSION SCREENING FORM SCREENING DATE AND TIME 09/09/2020 09:35 (SILK SPREADER) ANTICIPATED REHAB ADMISSION DATE 09/11/2020 REFERRING FACILITY [facility] REFERRAL DATE AND TIME 09/09/2020 09:37 (SILK SPREADER) REFERRAL ROOM# S5 10 ACUTE ADMIT DATE 09/05/2020 Previous Rehabilitation(s): No. 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 Lloyd Dupont M.D. MR# [id number] NAME ENZO BRIDGES ADDRESS [address] [place] [address] PHONE [facility] [id number] DATE OF 1940 AGE 80 SSN# [id number] GENDER female MARITAL STATUS RACE unknown race PREF. LANGUAGE (IF NON-SWEDISH) Ukrainian ADMIT FROM 02 - [facility] PRE-HOSPITAL LIVING SETTING 01 - Home (private home/apt. board/care, assisted living, halfway, transitional living) HOME TYPE AND DETAILS Type of home: single family house # of levels in the residence: 1 # of steps within the residence: 0 PRE-HOSPITAL LIVING WITH Family/Relatives FAMILY SUPPORT Yes PRIMARY FAMILY CONTACT NAME ELY BRIDGES PRIMARY FAMILY CONTACT PHONE PRIMARY FAMILY CONTACT RELATIONSHIP Spouse PHONE PRIMARY FAMILY CONTACT ON ADM.? no IS PRIMARY FAMILY CONTACT AUTH. REP.? no 1ST EMERGENCY CONTACT ELY BRIDGES 1ST CONTACT PHONE 1ST CONTACT RELATIONSHIP Spouse PHONE 1ST CONTACT ON ADM. no IS 1ST CONTACT AUTH. REP.? no PHONE 2ND CONTACT ON ADM.? no PATIENT EMPLOYMENT STATUS Retired (for age) PATIENT EMPLOYER No Employer PAYOR INFORMATION: 1ST PAYOR NAME MEDICARE 1ST PAYOR PHONE 1ST PAYOR INJURY/ILLNESS DUE TO ACCIDENT? No ANOTHER LIBERTARIAN RESPONSIBLE? No PRIMARY REHAB/ACUTE DIAGNOSIS: LEFT DISTAL FEMUR FRACTURE ONSET DATE 09/05/2020 REHAB IMPAIRMENT CATEGORY (BRUNO): 07 Fracture of LE (FracLE) does NOT meet 60% rule AFFECTED EXTREMITIES: LLE PRIMARY DIAGNOSIS-RELATED SURGERIES: LEFT KNEE REVISION TOTAL KNEE ARTHROPLASTY SUMMARY OF ACUTE HOSPITALIZATION: Pt. is a 80 yo Right-handed female of unknown race. She has past medical history significant for DX on MEDIC. On 09/05/2020 she was admitted to [facility] with diagnosis LEFT DISTAL FEMUR FRACTURE. Her impairment category is Orthopaedic Disorders 08 - Femur (Shaft) Fracture (08.2). Pre-morbidly, Pt. was independent/mod-I in Balance, Endurance, Transfers Control, and Locomotion; and she had good Safety Awareness and Communication. Currently, she has deficits of Locomotion, Balance, Transfers Control, Endurance, and Sphincter Contr ol. Pt. is now referred to [facility] for acute in-patient rehabilitation in order to maximize patient's functional independence in activities of daily living, strength, ROM, and mobi lity. Patient has realistic goal of being discharged at assistance level 7-Ind to reside at Home with Fami ly/Relatives. Ms. Bridges is a 80 year -old female that lives indepently at home with her in a single story house. She ambulates with a cane. She has a history of hypertension, hyperlipidemia, rheumatoid arthritis presenting with mechanical fall having sustained a left distal femur fracture. She fell while pushing her husand in a wheel chair. Her procedure performed was left knee revision total arthopasty, on 09/06/20. The patient would most defi nitely benefit from acute inpatient patient to come to acute inpatient rehab for approximately 7-10 days in order to return to her prior level of care. She is now being transferred to [facility] Inpatient rehabilitation and is medically stable with relatively stable labs. She is now medically stable but in need of 24 hour nursing, doctor supervision and oversight while receiving active and ongoing intensive (PT, OT therapy a day/15 hours per week and receive care with intensive interdisciplinary approach. COVID-19 screening performed; spoke with patient via phone. Patient denies new onset of fever, cough, difficulty breathing, sore throat, body aches and non-allergy nasal congestion in the past 24 hours. Patient denies travel outside of [place] in the past 14 days. Patient denies any contact with someone who has a confirmed diagnosis of or is under investigation for COVID-19 in the past 14 days. Patient has been tested negative for COVID- 19. PAST MEDICAL HISTORY HYPERLIPIDEMIA HYPERTENSION RHEUMATOID ARTHRITIS PAST SURGICAL HISTORY: BLE TKA'S IN 2010 MEDICATION ALLERGIES: CODEINE SULFATE ENVIRONMENTAL ALLERGIES: - Substance Allergies None Known - Other Allergies None Known CODE STATUS: Full code WEIGHT/HEIGHT/BMI: WEIGHT 182 lbs HEIGHT 5' 4" BMI 31.2 DIET: - Diet Type Regular - Diet - Solid Texture Regular - Diet - Liquid Texture Regular - Tube Feed N/A REVIEW OF SYSTEMS: - Gen Alert and awake Lying in bed No apparent distress Oriented to: person, time, and place - Vital Signs Temperature: 97.7 F SBP/DBP: 108/77 Pulse: 69 Resp: 14 Vital signs stable, afebrile - CVS RRR VITAL SIGNS Temperature: 97.7 F SBP/DBP: 108/77 Pulse: 69 Resp: 14 Vital signs stable, afebrile MEDICATIONS/TREATMENT: Other- See attached MAR (Medication Administration Record). CURRENT SPHINCTER CONTROL: Pre-hospital bladder status: unspecified # of bladder accidents in the last 7 days prior to screenin Pre-hospital bowel status: unspecified # of bowel accidents in the last 7 days prior to screenin Last Bowel Movement Date: 09/09/2020 CURRENT LOCOMOTION STATUS: distance walked 2 feet DETAILED CURRENT FUNCTIONAL STATUS: - Bladder accident frequency: 7-Ind - No accidents in the past 7 days - Bowel accident frequency: 7-Ind - No accidents in the past 7 days - Walking score based on distance walked: 0(N/A) score based on distance walked: 1(<=50ft) - Wheelchair score based on distance traveled: 0(N/A) QI SCORES: - Self-Care A. Eating 04-Supervision or touching assistance B. Oral hygiene 03-Partial/moderate assistance C. Toileting hygiene 03-Partial/moderate assistance E. Shower/bathe self 03-Partial/moderate assistance F. Upper body dressing 03-Partial/moderate assistance G. Lower body dressing 03-Partial/moderate assistance H. Putting on/taking off footwear 88-Not attempted due to medical condition or safety concerns - Mobility A. Roll left and right 04-Supervision or touching assistance B. Sit to lying 04-Supervision or touching assistance C. Lying to sitting on side of bed 03-Partial/moderate assistance D. Sit to stand 03-Partial/moderate assistance E. Chair/uxw-tb-xjuic transfer 03-Partial/moderate assistance F. Toilet transfer 03-Partial/moderate assistance G. Car transfer 88-Not attempted due to medical condition or safety concerns I. Walk 10 feet 88-Not attempted due to medical condition or safety concerns J. Walk 50 feet with two turns 88-Not attempted due to medical condition or safety concerns K. Walk 150 feet 88-Not attempted due to medical condition or safety concerns L. Walking 10 feet on uneven surfaces 88-Not attempted due to medical condition or safety concerns M. 1 step (curb) 88-Not attempted due to medical condition or safety concerns N. 4 steps 88-Not attempted due to medical condition or safety concerns O. 12 steps 88-Not attempted due to medical condition or safety concerns P. Picking up object 88-Not attempted due to medical condition or safety concerns R. Wheel 50 feet with two turns 88-Not attempted due to medical condition or safety concerns S. Wheel 150 feet 88-Not attempted due to medical condition or safety concerns - Bladder and Bowel Bladder continence Bowel continence - Endurance Fair - Balance Fair - Safety Awareness Fair CURRENT FUNC. DEFICITS: Self-Care, Mobility, Endurance, Balance, and Safety Awareness CURRENT / PREVIOUS ASSISTIVE DEVICES: Rolling Walker HISTORY OF FALLS. HAS THE PATIENT HAD TWO OR MORE FALLS IN THE PAST YEAR OR ANY FALL WITH INJURY IN T HE PAST YEAR?: No PRIOR SURGERY. DID THE PATIENT HAVE MAJOR SURGERY DURING THE 100 DAYS PRIOR TO ADMISSION?: No THERAPY NOTES FROM ACUTE CARE: Attached. SPECIAL NEEDS: - Safety Concerns Skin breakdown precautions needed due to skin breakdown risk PRECAUTIONS: - Weight Bearing Precaution WBAT left LE PATIENT NEEDS ACTIVE AND ONGOING THERAPEUTIC INTERVENTION OF MULTIPLE THERAPY DISCIPLINES, INCLUDING: - Dietary and Nutrition Adequate Nutrition. Nutritional Education. Nutritional Supplements. PATIENT NEEDS CLOSE MEDICAL SUPERVISION BY A REHABILITATION PHYSICIAN FOR: Coordination of Treatment Team PATIENT REQUIRES 24X7 REHAB NURSING FOR MEDICAL AND FUNCTIONAL MGT. OF THE FOLLOWING DEFICITS: Disease Management Medication Management Patient/Family Education Providing Safe Environment PATIENT REQUIRES INTENSIVE, COORDINATED INTERDISCIPLINARY APPROACH TO REHAB: Arranging Home Equipment/Services Discharge Planning Family Intervention/Training Cold Molding Press Operator/Case Management PATIENT REHAB POTENTIAL: Tucker BRIDGES is able and expected to receive 3 hours of individualized therapy daily on at least 5 of ev mervin 7 days Tucker BRIDGES's prognosis for significant practical improvement within a reasonable period of time appear s Good Expected level of measurable improvement will be of a practical value to Tucker BRIDGES's functional capac ity or adaptations to impairments Has a viable Discharge Plan Medically appropriate; condition is sufficiently stable to participate in intensive rehab program DISCHARGE PLAN: - Estimated Length of Stay (days) 14. - Consensus on plan Discharge plan has been discussed with primary caregiver. Patient/Family is in agreement with the cindy n. Primary caregiver is in agreement with the plan. - Patient/Family Goals Return home independently. - Planned Living Setting Upon Discharge Home, to live with Family/Relatives. Transitional Living. RECOMMENDED CARE LEVEL: IRF RECOMMENDATION DETAILS: Recommended Admission to Comprehensive Rehabilitation Program to Increase Functional [place] SCREENER'S COMPLETENESS CONFIRMATION: - Screening Confirmation The patient data collection on this preadmission screening form is finished PHYSICIANS REVIEW AND ADMISSION DETERMINATION Admit - Based on my review of the Pre-Admission Screening results, in my medical judgment and experie nce, I concur with the findings and recommend admission to [facility], as this patient requires an IRF level of care. SIGNATURE PANEL: E Learning Designer - [electronically] signed by Aj Graves on 09/09/2020 at 13:27 (SILK SPREADER) E Learning Designer - [electronically] signed by Estiven Nugent PT on 09/09/2020 at 13:41 (SILK SPREADER) Physician Reviewer - [electronically] signed by Dr. Lloyd Dupont M.D. on 09/09/2020 at 13:57 (SILK SPREADER )
--- OUTSIDE RECORDS SUMMARY | 2020-09-09 19:36 | XMS REPORT | Continuity of Care Document ---
:[address] [facility] t Address [address] [place] [address] Care Team Providers Name Role Phone Quentin PRATT Attending Clinician QUENTIN Attending Clinician Unavailable Say WEINBERG E Attending Clinician Unavailable Zachery Celeste Attending Clinician [phone] Payers Payer Name Policy Type Policy Effective Date Expiration Date Sour ce Number MEDICAREMEDICARE PART [id number] MD Jung A AND 00:00:00 [id number]- [phone] [facility] Problems Condition Condition Condition Status Onset Resolution Last Treating Co mments Source Name Details Category Date Date Treatment Clinician Date No No Disease MD additional additional An derso problems problems n on file on file Allergies, Adverse Reactions, Alerts This patient has no known allergies or adverse reactions. Social History Social Habit Start Date Stop Date Quantity Comments Source Sex Assigned At MD Jung Exposure to SARS-CoV-2 (event) Not sure MD Jung Medications Ordered Filled Start Stop Current Ordering Indication Dosage Frequency Signature Comments Components Source Medication Medication Date Date Medication? Clinician (SIG) Name Name meloxicam Yes 15mg Take 15 mg (MOBIC) 15 3-05 by mouth Alfie so mg tablet 01:06: daily. n 02 levothyroxi 2020- Yes 100ug Take 100 M D ne 3-05 mcg by Anderso (SYNTHROID, 01:06: mouth n LEVOTHROID) 02 daily. 100 mcg tablet lisinopril Yes 40mg Take 40 mg M D (PRINIVIL,Z 3-05 by mouth Dez rso ESTRIL) 40 01:06: every n mg tablet 02 morning. atorvastati Yes 40mg Take 40 mg MD byrne (LIPITOR) 3-05 by mouth Dez rso 40 mg 01:06: daily. n tablet 02 aspirin 81 Yes 81mg Take 81 mg M D mg EC 3-05 by mouth Anderso tablet 01:06: daily. n 01 levothyroxi 2020- 100ug Take 100 MD oneal 3- 03-04 mcg by Anderso (SYNTHROID, 01:06: 00:00 mouth n LEVOTHROID) 01 :00 daily. 100 mcg tablet Vital Signs Vital Name Observation Time Observation Value Comments Source WEIGHT 2020-09-04 12:57:00 89.6 kg WEIGHT 2020-09-04 12:57:00 89.6 kg Systolic blood pressure 2020-09-04 23:42:17 134 mm[Hg] MD Jung Diastolic blood pressure 2020-09-04 23:42:17 66 mm[Hg] MD Jung Heart rate 2020-09-04 23:42:17 72 /min MD Alfie magaña Body temperature 2020-09-04 23:42:17 36.89 Rosa MD Nino johnson Respiratory rate 2020-09-04 23:42:17 18 /min MD Nino johnson Oxygen saturation in 2020-09-04 23:42:17 97 /min MD Jung Arterial blood by Pulse oximetry Body weight 2020-09-04 18:57:00 89.6 kg MD Judge son Procedures Procedure Date / Time Performed Performing Clinician [facility] e XR FEMUR 2 VW LEFT 2020-09-05 00:11:48 Ophelia Paz MD on XR HIP 2 OR 3 VW W PELVIS LEFT 2020-09-05 00:10:56 Brandy Paz MD CONFIRM ABORH TYPE 2020-09-04 23:00:00 Ophelia Paz MD on TYPE AND SCREEN 2020-09-04 22:22:00 Ophelia Paz MD PROTHROMBIN TIME 2020-09-04 22:22:00 Ophelia Paz MD PARTIAL THROMBOPLASTIN TIME 2020-09-04 22:22:00 Ophelia Paz MD ABORH 2020-09-04 22:22:00 Ophelia Paz MD ANTIBODY SCREEN 2020-09-04 22:22:00 Ophelia Paz MD CLOT EXPIRATION DATE 2020-09-04 22:22:00 Ophelia Paz MD TMP INTERPRETATION ANTIBODY 2020-09-04 22:22:00 Ophelia Paz MD SCREEN NEGATIVE XR KNEE 1 OR 2 VW LEFT 2020-09-04 21:30:01 Ophelia Paz MD derson XR FEMUR 2 VW LEFT 2020-09-04 21:29:05 Ophelia Paz MD on XR HIP 2 OR 3 VW W PELVIS LEFT 2020-09-04 21:28:19 Brandy Paz MD COMPLETE BLOOD COUNT W/ 2020-09-04 19:29:00 Ophelia Paz MD nderson DIFFERENTIAL COMPREHENSIVE METABOLIC PANEL 2020-09-04 19:29:00 Enid Paz MD MAGNESIUM LEVEL 2020-09-04 19:29:00 Ophelia Paz MD PHOSPHORUS LEVEL 2020-09-04 19:29:00 Ophelia Paz MD Results CBC 2020-09-04 19:29:00 Ophelia Paz MD MANUAL DIFFERENTIAL 2020-09-04 19:29:00 Ophelia Paz MD son GLUCOSE LEVEL 2020-09-04 19:29:00 Ophelia Paz MD BLOOD UREA NITROGEN 2020-09-04 19:29:00 Ophelia Paz MD son ELECTROLYTE PANEL 2020-09-04 19:29:00 Ophelia Paz MD n SERUM CREATININE 2020-09-04 19:29:00 Ophelia Paz MD .GLOMERULAR FILTRATION RATE 2020-09-04 19:29:00 Ophelia Paz MD CALCIUM LEVEL TOTAL 2020-09-04 19:29:00 Ophelia Paz MD son ALBUMIN LEVEL 2020-09-04 19:29:00 Ophelia Paz MD ALKALINE PHOSPHATASE 2020-09-04 19:29:00 Ophelia Paz MD rson ALANINE AMINOTRANSFERASE 2020-09-04 19:29:00 Ophelia Paz MD ASPARTATE AMINOTRANSFERASE 2020-09-04 19:29:00 Opheila Paz TOTAL PROTEIN 2020-09-04 19:29:00 Ophelia Paz MD FRACTIONATED BILIRUBIN 2020-09-04 19:29:00 Ophelia Paz MD derson EKG, 12-LEAD (PORTABLE) 2020-09-04 00:00:00 Ophelia Paz MD nderslui Encounters Start End Encounter Admission Attending Care Care Encounter Source Date/Time Date/Time Type Type Clinicians Facility Department ID 2020-09-04 2020-09-04 Emergency UR AMBROSIO PAZ Emergency [id number] 12:42:00 19:06:00 OPHELIA byrne 2020-09-04 2020-09-04 Emergency EL AMBROSIO PAZ AMBROSIO [id number] 15:27:25 15:45:13 OPHELIA byrne 2020-07-28 2020-07-28 [facility] [id number] 00:00:00 00:00:00 Amadou [id number] Zachery [id number] Results Test Description Test Time Test Comments Results Result Comments Source TMP Interpretation Antibody Screen Negative 2020-09-05 01:07 :53 Test Item Value Reference Range Interpretation Comme nts TMP At the present SELENA Auto time, patient MD Lily YOUNG [id number] by: SELENA Doran plasma shows no MD Lily YANEZ [id number] Date/Time: ABSC evidence of RBC 09.04.2020 1 9:07 PM MACHINE ETCHER Transcribed Date/Time: 09.04.2020 Interp alloantibodies. 19:07 PM MACHINE ETCHER Electronically Signed By: SELENA HAND (test MD Lily LAGUNAS [id number] on 09.04.2020 19:07 PM code = 7535) MD AndersonX-ray Femur 2 Views [id number] 00:34:19Interval placement of plaster cast neutral alignment of impacted distal diaphyseal fracture.Interface, Radiology Results In 09/04/2020 6:36 PM CSTFULL RESULT:Examination: XR HIP 2 OR 3 VW W PELVIS LEFT, XR FEMUR 2 VW LEFT, 09/04/2020 6:10 PM.Clinical History: Noncancer patient. Post fall.Indication: Femur fracture, PainComparison: Earlier assessment this date 09/04/2020.Technique: Left hip 2 views 1 view pelvis. Left femur 2 views.Findings: Redemonstration of comminuted distal diaphyseal fracture detected with plaster casting. The alignment of the distal fracture is intact with no discrete displacement or angulation based assessment.Left hip assessment demonstrates no evidence of proximal fracture.Pelvis osseous structures are intact. IMPRESSION:Interval placement of plaster cast neutral alignment of impacted distal diaphyseal fracture.MD JungXR Hip 2 or 3 Views w Pelvis Left 2020-09-05 00:34:19Interval placement of plaster cast neutral alignment of impacted distal diaphyseal fracture.Interface, Radiology Results In 09/04/2020 6:36 PM CSTFULL RESULT:Examination: XR HIP 2 OR 3 VW W PELVIS LEFT, XR FEMUR 2 VW LEFT, 09/04/2020 6:10 PM.Clinical History: Noncancer patient. Post fall.Indication: Femur fracture, PainComparison: Earlier assessment this date 09/04/2020.Technique: Left hip 2 views 1 view pelvis. Left femur 2 views.Findings: Redemonstration of comminuted distal diaphyseal fracture detected with plaster casting. The alignment of the distal fracture is intact with no discrete displacement or angulation based assessment.Left hip assessment demonstrates no evidence of proximal fracture.Pelvis osseous structures are intact. IMPRESSION:Interval placement of plaster cast neutral alignment of impacted distal diaphyseal fracture.MD JungConfirm [id number] 00:17:01 Test Item Value Reference Range Interpretation Comments ABORh Confirm. (test code = 882-1) O POS MD JungAntibody [id number] 23:31:58 Test Item Value Reference Range Interpretation Comments ABSC. (test code = 890-4) Negative ABSC MD [id number] 23:31:57 Test Item Value Reference Range Interpretation Comments ABORh. (test code = 882-1) O POS MD JungClot Expiration [id number] 23:31:55 Test Item Value Reference Range Interpretation Comments T & S Expiration (test code = 09/07/2020 5318) MD JungPartial Thromboplastin [id number] 23:10:25 Test Item Value Reference Range Interpretation Comments PTT (test code = 31.8 See_Comment [Automated message] The 6773) system which ge nerated this result transmit khadijah reference range : 24.2 - 36.0 second(s). The reference range was not used to interpr et this result as nini l/abnormal. MD JungProthrombin Time with [id number] 23:10:24 Test Item Value Reference Range Interpretation Comments PT (test code = 6746) 14.0 See_Comment [Auto mated message] The system [employer] h generated this result transmitted ref erence range: 12.0 - 1 4.3 second(s). The reference range was not used to int erpret this result as normal/abnormal . INR (test code = 5973) 1.14 0.90-1.10 H Lab Interpretation (test Abnormal code = 13496-1) MD JungX-ray Knee 1 Or 2 Views [id number] 21:44:151. Comminuted fracture of the distal femur with fracture override of approximately 2 cm. The fracture is directly proximal to a total knee prosthesis and extends to the prosthesis. CT can be obtained in order to assess the relationship of the fracture fragments to the prosthesis if indicated.2. Orthopedics consult is recommended. Result notification: This report was sent by email to ER Dr. Ophelia Paz at 3:45 PM on September 04, 2020. Interface, Radiology Results In - 09/04/2020 3:46 PM CSTFULL RESULT:Examination: XR HIP 2 OR 3 VW W PELVIS LEFT, XR KNEE 1 OR 2 VW LEFT, XR FEMUR 2 VW LEFT, 13:28 PM.Clinical History: Trauma and pain. Inability to bend the left knee.Indication: Fall, PainComp arison: NoneTechnique: Left hip: 2 views with one view of pelvis. Left femur: One view on 2 images Left knee: 1 view.Findings: Left hip, left femur and left knee: The bones are osteopenic in appearance. Healed insufficiency fracture of the body of the right pubic bone. The majority of the sacrum and the left iliac bone are partially obscured by overlying bowel content.No fracture of the left hip is visualized. No joint dislocation or subluxation.Comminuted fracture of the distal left femur is present, directly proximal to the left total knee prosthesis. The femur is foreshortened by at least 2 cm secondary to fracture override. An undisplaced fracture line extends to the level of the prosthesis on the image of the distal femur. No superimposed destructive osseous lesions are detected.Limited examination of the knee due to pain, demonstrating an oblique view of the prosthesis that does not include the distal tibial stem. If indicated, CT can be obtained for further evaluation and to assess for in volvement of the femur at the level of the prosthesis.IMPRESSION:1. Comminuted fracture of the distal femur with fracture override of approximately 2 cm. The fracture is directly proximal to a total knee prosthesis and extends to the prosthesis. CT can be obtained in order to assess the relationship of the fracture fragments to the prosthesis if indicated.2. Orthopedics consult is recommended.Result notification: This report was sent by email to ER Dr. Ophelia Paz at 3:45 PM on September 04, 2020.MD JungFractionated [id number] 20:04:56 Test Item Value Reference Range Interpretation Comments Bili Total (test 0.5 mg/dL See_Comment Indocyanine Green (ICG) code = 5096) may cause false ly elevated biliru bin results. Total and direct bilirubin must not be measured from s amples containing indo cyanine green. False el evation of total bilirubin can be seen in patient s with IgG concentrations above 28 g/L. [Automate d message] The system [employer] generated this result transmitted ref erence range: <=1.2. T he reference range was not used to interpr et this result as normal/abnormal . Bili Direct (test <0.2 See_Comment Indocyanin e Green (ICG) code = 5094) may cause false ly elevated biliru bin results. Total and direct bilirubin must not be measured from s amples containing indo cyanine green. [Automat ed message] The sy stem which generated this result transmitted ref erence range: <=0.3 mg /dL. The reference range was not used to interpr et this result as normal/abnormal . Bili Indirect (test See Note 0-0.9 Unable t o calculate code = 5095) Indirect Biliru bin result due to some par ameters are outside rep ortable range MD JungGlomerular Filtration [id number] 20:04:55 Test Item Value Reference Range Interpretation Comments eGFR-AA (test code 84 See_Comment Normal eG FR: >= 60 = 8062) mL/min/1.73 m2N ote: The eGFR is calculated u sing the CKD-EPI equatio n. The eGFR declines with a ge. eGFR <60 mL/min/1.73 m2 is considered as "decreased". This equation should only be used for patients 18 and older. According to e [employer] on's Kidney Disease Outcome Quality Initiative (KDO QI) classification and 2012 Kidney Disease Improving Global Outcomes (KDIGO) Clinical Practi ce Guideline, the stage of CK D should be categorized bas ed on estimated GFR. Stage Description GFR mL/min/1.73 m21 Normal or high GFR >=902 Mildly decrease d GFR 60-893a M ildly to moderately decr eased GFR 45-593b Moderat diane to severely decrea sed GFR 30-444 Severely decreased GFR 15-295 Kid cheri failure <15 [Automa khadijah message] The system [employer] generated this result tra nsmitted reference range : >=60 mL/min/1.73 sq. m. The reference range was not used to interpret th is result as normal/abnormal . eGFR-LITTLE (test code 73 See_Comment Normal e GFR: >= 60 = 8063) mL/min/1.73 m2N ote: The eGFR is calculated u sing the CKD-EPI equatio n. The eGFR declines with a ge. eGFR <60 mL/min/1.73 m2 is considered as "decreased". This equation should only be used for patients 18 and older. According to e National [employer] on's Kidney Disease Outcome Quality Initiative (KDO QI) classification and 2012 Kidney Disease Improving Global Outcomes (KDIGO) Clinical Practi ce Guideline, the stage of CK D should be categorized bas ed on estimated GFR. Stage Description GFR mL/min/1.73 m21 Normal or high GFR >=902 Mildly decrease d GFR 60-893a M ildly to moderately decr eased GFR 45-593b Moderat diane to severely decrea sed GFR 30-444 Severely decreased GFR 15-295 Kid cheri failure <15 [Automa khadijah message] The system [employer] generated this result tra nsmitted reference range : >=60 mL/min/1.73 sq. m. The reference range was not used to interpret th is result as normal/abnormal . MD JungTotal [id number] 20:04:53 Test Item Value Reference Range Interpretation Comments Total Protein (test code = 7649) 6.3 g/dL 6.4-8.3 L Lab Interpretation (test code = Abnormal 24422-2) MD JungMagnesium [id number] 20:04:52 Test Item Value Reference Range Interpretation Comments Magnesium (test code = 6359) 2.1 mg/dL 1.6-2.6 MD JungAlkaline [id number] 20:04:51 Test Item Value Reference Range Interpretation Comments Alk Phos (test code = 4768) 69 U/L 35-104 MD [id number] 20:04:50 Test Item Value Reference Range Interpretation Comments ALT (test code = 8 U/L See_Comment [Automated message] The 6591) system which ge nerated this result transmit khadijah reference range : <=33. The reference range was not used to interpr et this result as nini l/abnormal. MD Jung.Serum [id number] 20:04:48 Test Item Value Reference Range Interpretation Comments Creatinine (test code = 5399) 0.76 mg/dL 0.51-0.95 MD JungPhosphorus [id number] 20:04:47 Test Item Value Reference Range Interpretation Comments Phosphorus (test code = 6817) 3.5 mg/dL 2.5-4.5 MD [id number] 20:04:46 Test Item Value Reference Range Interpretation Comments BUN (test code = 5055) 25 mg/dL 6-23 H Lab Interpretation (test code = Abnormal 41509-4) MD JungCalcium [id number] 20:04:45 Test Item Value Reference Range Interpretation Comments Calcium Lvl (test code = 5258) 9.3 mg/dL 8.4-10.2 MD JungElectrolyte [id number] 20:04:44 Test Item Value Reference Range Interpretation Comments Sodium Lvl (test code = 140 See_Comment [Au tomated message] The 8287) system which ge nerated this result tra nsmitted reference range : 136 - 145 mEq/L. The reference range was not u sed to interpret this result as normal/abnormal . Potassium Lvl (test 5.0 See_Comment Specimen is hemolyzed. code = 6854) Results may be falsely elevated. Repea t test if needed. [Automa khadijah message] The sy stem which generated this result transmitted ref erence range: 3.5 - 5. 1 mEq/L. The reference r michela was not used to int erpret this result as normal/abnormal . Chloride (test code = 104 See_Comment [Auto mated message] The 9176) system which ge nerated this result tra nsmitted reference range : 98 - 107 mEq/L. The refe rence range was not u sed to interpret this result as normal/abnormal . CO2 (test code = 5227) 28 See_Comment [Aut omated message] The system which ge nerated this result tra nsmitted reference range : 22 - 29 mEq/L. The refe rence range was not u sed to interpret this result as normal/abnormal . Anion Gap (test code = 8 See_Comment [Aut omated message] The 9312) system which ge nerated this result tra nsmitted reference range : 4 - 14 mEq/L. The refe rence range was not u sed to interpret this result as normal/abnormal . MD JungAlbumin [id number] 20:04:43 Test Item Value Reference Range Interpretation Comments Albumin Lvl (test code 3.8 See_Comment [Aut omated message] The = 9628) system which ge nerated this result tra nsmitted reference range : 3.5 - 5.2 gm/dL. The refe rence range was not used to interpret this result as normal/abnormal . MD JungAspartate [id number] 20:04:42 Test Item Value Reference Range Interpretation Comments AST (test code = 27 U/L See_Comment Specimen is hemolyzed. 8981) Results may be falsely elevated. Repea t test if needed. [Automa khadijah message] The system whic h generated this result tra nsmitted reference range : <=32. The reference range was not used to interpr et this result as nini l/abnormal. MD JungGlucose [id number] 20:04:40 Test Item Value Reference Range Interpretation Comments Glucose Level (test code 103 mg/dL 70-99 H Eff ective 01/28/16, = 5699) the glucose reference inter vals have been updat ed based on [place] an Diabetes Associ ation guidelines (Standards of Medical Care in Diabetes 2016. Diabetes Care 2 016; 39: S13-S22).Fa sting blood glucose:Normal: 70 99 mg/dLImpaire d fasting glucose (increased risk for diabetes or pre-diabetes): 100 125 mg/dLDiabet es mellitus: >/=1 26 mg/dL Random bl ood glucose:Normal: 70 199 mg/dLNote: Random glucose >100 mg/dL is associ ated with increased risk for diabetes Lab Interpretation (test Abnormal code = 89970-9) MD [id number] 19:38:48 Test Item Value Reference Range Interpretation Comments Neutrophil % (test code = 55.6 % 42-66 25086-3) Lymphocyte % (test code = 30.7 % 24-44 737-7) Monocyte % (test code = 8.3 % 2-7 H 744-3) Eosinophil % (test code = 4.5 % 1-4 H 713-8) Basophil % (test code = 0.6 % 0-1 707-0) IGRE % (test code = 0.3 % 0-0.4 IGRE % c ount 25789-4) includes Metamyelocytes, Myelocytes, and Promyelocytes. Neutrophil Abs (test code 4.43 K/uL 1.7-7.3 = 753-4) Lymphocyte Abs (test code 2.45 K/uL 1-4.8 = 732-8) Monocyte Abs (test code = 0.66 K/uL 0.08-0.7 743-5) Eosinophil Abs (test code 0.36 K/uL 0.04-0.4 = 712-0) Basophil Abs (test code = 0.05 K/uL 0-0.1 705-4) IG Abs (test code = 0.02 K/uL 0-0.04 47419-9) Lab Interpretation (test Abnormal code = 96508-1) MD Jung.[id number] 19:38:46 Test Item Value Reference Range Interpretation Comments WBC (test code = 8.0 K/uL 4-11 6690-2) RBC (test code = 789-8) 3.43 See_Comment L [Au tomated message] The system [employer] generated this result transmitted ref erence range: 4.00 - 5 .50 M/uL. The refer ence range was not u sed to interpret this result as normal/abnor mal. Hgb (test code = 718-7) 11.4 See_Comment L [Au tomated message] The system [employer] generated this result transmitted ref erence range: 12.0 - 1 6.0 gm/dL. The refe rence range was not u sed to interpret this result as normal/abnor mal. Hct (test code = 35.3 % 37-47 L 4544-3) MPV (test code = 787-2) 11.9 fL 4-10.4 H MCH (test code = 785-6) 33.2 pg 27-31 H MCHC (test code = 32.3 See_Comment [Automate d message] 786-4) The system [employer] generated this result transmitted ref erence range: 31.0 - 3 6.0 gm/dL. The refe rence range was not u sed to interpret this result as normal/abnor mal. RDW-SD (test code = 59.3 fL 35.1-46.3 H 65452-0) RDW-CV (test code = 15.6 % 12-15.5 H 788-0) Platelet count (test 200 K/uL 140-440 code = 777-3) INRBC (test code = 0.0 % See_Comment The INRBC (instrument 5974) NRBC) value ref lects the enumeration of nucleated red b lood cells contained in a 200uL sampleof whole blood analyzed by the instrument. Thi s value maydiffer from the NRBC value repo rted in a manual differential,wh ich is based on a 100 cell differential. [Automated mess age] The system [employer] generated this result transmitted ref erence range: <=0.0. T he reference range was not used to int erpret this result as normal/abnormal . Lab Interpretation Abnormal (test code = 38633-1) MD Jung
[2020-09-10 06:59] LABS: Absolute Lymphocytes (CBC) 1.8 K/uL (0.7-4.9); Basophils % 0.4 % (0-1.3); Lymphocytes % 25.8 % (15.3-44.8); RBC Red Blood Cell Count 2.01 M/uL (3.86-4.86)
[2020-09-10 07:10] LABS: Hematocrit 20.2 % (36.0-45.0)
[2020-09-10 07:20] LABS: Albumin 2.4 g/dL (3.4-5.0); BUN Blood Urea Nitrogen 18 mg/dL (7-18); Bicarbonate 32 mmol/L (21-32); Glucose Level 93 mg/dL (74-106); Magnesium 2.2 mg/dL (1.8-2.4); Potassium 4.1 mmol/L (3.5-5.1); Prealbumin 8.9 mg/dL (20-40); Sodium Level 140 mmol/L (136-145)
[2020-09-10] MEDS: LEVOTHYROXINE SOD 0.1 MG TAB PO SCH (07:30)
[2020-09-10] MEDS ORDERED: ACETAMINOPHEN 500 MG TAB PO SCH (08:00)
[2020-09-10] MEDS: lisinopriL 20 MG TAB PO SCH (08:00)
[2020-09-10] MEDS ORDERED: ATORVASTATIN 40 MG TAB PO SCH (08:00)
[2020-09-10] MEDS: Biotin 5,000 MCG PO SCH (08:00)
[2020-09-10] MEDS: DRISDOL (VITAMIN D=ERGOCALCIFEROL) 50000 UNIT CAP PO SCH (09:00)
[2020-09-10] MEDS: ENOXAPARIN 30 MG/0.3 ML SQ SCH ×2 (09:30→20:29)
[2020-09-10] MEDS: ASPIRIN EC 81 MG TAB PO SCH (09:42)
[2020-09-10] MEDS: MULTIVITAMIN TAB PO SCH (09:45)
[2020-09-10] MEDS: CYANOCOBALAMIN 1,000 MCG TAB PO SCH (09:46)
[2020-09-10] MEDS ORDERED: NA CHLORIDE 0.9% 250 ML ONE ×2 (11:35→21:17)
[2020-09-10 14:34] VITALS: BMI 31.2
[2020-09-10] MEDS ORDERED: BISACODYL 10 MG RECTAL SUPP PR PRN (14:35)
--- NOTE | 2020-09-10 18:17 | R.HP ---
HISTORY AND PHYSICAL FACILITY: [facility] ENCOUNTER DATE AND TIME: 09/10/2020 18:10 ([employer]) MR#: [id number] NAME ENZO BRIDGES ADDRESS: [address] [place] [address] RO[address] [facility] CITY: [place]IP [address] PHONE: DATE OF : 1940 AGE: 80 SSN# [id number] GENDER: Female DEXTERITY Right-handed MARITAL STATUS RACE Unknown race PRE-HOSPITAL LIVING SETTING 01 - Home (private home/apt. board/care, assisted living, [place] [facility], transitional living) PRE-HOSPITAL LIVING WITH Family/Relatives ENCOUNTER PHYSICIAN: Dr. Lloyd Dupont M.D. REFERRING DOCTOR: SHEEBA MTZ MD DATE OF ADMISSION: 09/09/2020 19:10 ([employer]) REFERRING FACILITY [facility] HOME TYPE AND DETAILS: Type of home: single family house # of levels in the residence: 1 # of steps within the residence: 0 ONSET DATE: 09/05/2020 PRIMARY DIAGNOSIS-RELATED SURGERIES: LEFT KNEE REVISION TOTAL KNEE ARTHROPLASTY HISTORY OF PRESENT ILLNESS (HPI): Pt. is a 80 yo Right-handed female of unknown race. She has past medical history significant for DX on MEDIC. On 09/05/2020 she was admitted to [facility] with diagnosis LEFT DISTAL FEMUR FRACTURE. Her impairment category is Orthopaedic Disorders 08 - Femur (Shaft) Fracture (08.2). Pre-morbidly, Pt. was independent/mod-I in Balance, Endurance, Transfers Control, and Locomotion; and she had good Safety Awareness and Communication. Currently, she has deficits of Locomotion, Balance, Transfers Control, Endurance, and Sphincter Contr ol. Pt. is now referred to [facility] for acute in-patient rehabilitation in order to maximize patient's functional independence in activities of daily living, strength, ROM, and mobi lity. Patient has realistic goal of being discharged at assistance level 7-Ind to reside at Home with Fami ly/Relatives. Ms. Bridges is a 80 year -old female that lives indepently at home with her in a single story house. She ambulates with a cane. She has a history of hypertension, hyperlipidemia, rheumatoid arthritis presenting with mechanical fall having sustained a left distal femur fracture. She fell while pushing her husand in a wheel chair. Her procedure performed was left knee revision total arthopasty, on 09/06/20. The patient would most defi nitely benefit from acute inpatient patient to come to acute inpatient rehab for approximately 7-10 days in order to return to her prior level of care. She is now being transferred to [facility] Inpatient rehabilitation and is medically stable with relatively stable labs. She is now medically stable but in need of 24 hour nursing, doctor supervision and oversight while receiving active and ongoing intensive (PT, OT therapy a day/15 hours per week and receive care with intensive interdisciplinary approach. COVID-19 screening performed; spoke with patient via phone. Patient denies new onset of fever, cough, difficulty breathing, sore throat, body aches and non-allergy nasal congestion in the past 24 hours. Patient denies travel outside of [place] in the past 14 days. Patient denies any contact with someone who has a confirmed diagnosis of or is under investigation for COVID-19 in the past 14 days. Patient has been tested negative for COVID- 19. MEDICATION ALLERGIES: CODEINE SULFATE ENVIRONMENTAL ALLERGIES: - Substance Allergies None Known - Other Allergies None Known PAST MEDICAL HISTORY: HYPERLIPIDEMIA HYPERTENSION RHEUMATOID ARTHRITIS PAST SURGICAL HISTORY: BLE TKA'S IN 2010 SOCIAL HISTORY: - Home Living Family/Relatives REVIEW OF SYSTEMS: - Gen No Chills Fatigue No Fever - Eyes No Double Vision No itchiness - ENMT No Difficulty Swallowing - CVS No Chest Discomfort No Chest Pain Fatigue No Weight Gain - Resp No Cough No Shortness of Breath - GI Continent No Abdominal Pain No Constipation No Diarrhea - Continent No Kidney Pain No Painful Urination No Urinary Urgency - MSK No Joint Pain Muscle Cramps Stiffness - Skin No Itching No Rash No Suspicious Lesions - Neuro Coordination Difficulty No Difficulty with Concentration No Memory Loss No Seizures Weakness - Psych No Anxiety No Depression No HIV Exposure No Persistent Infections No Seasonal Allergies - Endo No Cold/Heat Intolerance No Excessive Hunger No Excessive Thirst No Excessive Urination PHYSICAL EXAM - Gen Alert and awake Lying in bed No apparent distress Oriented to: person, time, and place - Skin Left hip incision intact and left leg is wrapped. No numbness - Eyes No abnormalities - ENMT No abnormalities - Neck No abnormalities - CVS RRR - Chest Clear - Abd + bowel sounds - GI Soft Deferred - No abnormalities - Ext Mild left lower extremity edema. - MSK 4+/5 weakness in left lower extremity - Neuro 4/5 strength left lower extremity. - Psych No abnormalities VITAL SIGNS Temperature: 98.8 F SBP/DBP: 146/73 Pulse: 68 Resp: 16 NURSING: - Shower allowing shower - Skin care per protocol PRECAUTIONS: - Weight Bearing Precaution WBAT left LE ACTIVITIES OOB only with supervision QI SCORES: - Self-Care A. Eating 04-Supervision or touching assistance B. Oral hygiene 03-Partial/moderate assistance C. Toileting hygiene 03-Partial/moderate assistance E. Shower/bathe self 03-Partial/moderate assistance F. Upper body dressing 03-Partial/moderate assistance G. Lower body dressing 03-Partial/moderate assistance H. Putting on/taking off footwear 88-Not attempted due to medical condition or safety concerns - Mobility A. Roll left and right 04-Supervision or touching assistance B. Sit to lying 04-Supervision or touching assistance C. Lying to sitting on side of bed 03-Partial/moderate assistance D. Sit to stand 03-Partial/moderate assistance E. Chair/clb-[id number]-puqcq transfer 03-Partial/moderate assistance F. Toilet transfer 03-Partial/moderate assistance G. Car transfer 88-Not attempted due to medical condition or safety concerns I. Walk 10 feet 88-Not attempted due to medical condition or safety concerns J. Walk 50 feet with two turns 88-Not attempted due to medical condition or safety concerns K. Walk 150 feet 88-Not attempted due to medical condition or safety concerns L. Walking 10 feet on uneven surfaces 88-Not attempted due to medical condition or safety concerns M. 1 step (curb) 88-Not attempted due to medical condition or safety concerns N. 4 steps 88-Not attempted due to medical condition or safety concerns O. 12 steps 88-Not attempted due to medical condition or safety concerns P. Picking up object 88-Not attempted due to medical condition or safety concerns R. Wheel 50 feet with two turns 88-Not attempted due to medical condition or safety concerns S. Wheel 150 feet 88-Not attempted due to medical condition or safety concerns - Bladder and Bowel Bladder continence Bowel continence - Endurance Fair - Balance Fair - Safety Awareness Fair CURRENT FUNC. DEFICITS: Self-Care, Mobility, Endurance, Balance, and Safety Awareness MEDICATIONS: - Other See attached MAR (Medication Administration Record) ASSESSMENT: Pt. is a 80 yo Right-handed female of unknown race.She has past medical history significant for DX on MEDIC.On 09/05/2020 she was admitted to [facility] with diagnosis LEFT DISTAL FEMUR FRACTURE. Her impairment category is Orthopaedic Disorders 08 - Femur (Shaft) Fracture (08.2).Pre-morbidly, Pt . was independent/mod-I in Balance, Endurance, Transfers Control, and Locomotion; and she had good Sa fety Awareness and Communication.Currently, she has deficits of Locomotion, Balance, Transfers Contro l, Endurance, and Sphincter Control.Pt. is now referred to [facility] for acut e in-patient rehabilitation in order to maximize patient's functional independence in activities of d aily living, strength, ROM, and mobility.- Rehab Goal Patient has realistic goal of being discharged at assistance level 7-Ind to reside at Home with Fami ly/Relatives. Ms. Bridges is a 80 year -old female that lives indepently at home with her in a single story house. She ambulates with a cane. She has a history of hypertension, hyperlipidemia, rheumatoid arthritis presenting with mechanical fall having sustained a left distal femur fracture. She fell while pushing her husand in a wheel chair. Her procedure performed was left knee revision total arthopasty, on 09/06/20. The patient would most defi nitely benefit from acute inpatient patient to come to acute inpatient rehab for approximately 7-10 days in order to return to her prior level of care. She is now being transferred to [facility] Inpatient rehabilitation and is medically stable with relatively stable labs. She is now medically stable but in need of 24 hour nursing, doctor supervision and oversight while receiving active and ongoing intensive (PT, OT therapy a day/15 hours per week and receive care with intensive interdisciplinary approach. COVID-19 screening performed; spoke with patient via phone. Patient denies new onset of fever, cough, difficulty breathing, sore throat, body aches and non-allergy nasal congestion in the past 24 hours. Patient denies travel outside of [place] in the past 14 days. Patient denies any contact with someone who has a confirmed diagnosis of or is under investigation for COVID-19 in the past 14 days. Patient has been tested negative for COVID- 19.REHAB PLAN: - Physical Therapy Decreased range of motion - to improve, our physical therapists will perform initial evaluation of pt 's status upon admission and devise an individualized program for increasing patient's Range of Motio n. Gait dysfunction - to improve, our physical therapists will perform initial evaluation of pt's status upon admission and devise an individualized program for Gait Training, and Wheel Chair mobility Inability to transfer - to improve, our physical therapists will perform initial evaluation of pt's s tatus upon admission and devise an individualized program for Bed mobility Need for home safety evaluation - to improve, our physical therapists will perform initial evaluation of pt's status upon admission and devise an individualized program for Home Evaluation Need in caregiver upon discharge - to improve, our physical therapists will perform initial evaluatio n of pt's status upon admission and devise an individualized program for Caregiver Training New precaution - to improve, our physical therapists will perform initial evaluation of pt's status u renae admission and devise an individualized program for Patient precaution education Edema - to improve, our physical therapists will perform initial evaluation of pt's status upon admi ssion and devise an individualized program for Elevation Training, and Lymphedema Therapy Poor balance - to improve, our physical therapists will perform initial evaluation of pt's status upo n admission and devise an individualized program for Balance Training Poor endurance - to improve, our physical therapists will perform initial evaluation of pt's status u renae admission and devise an individualized program for Endurance Training Weakness - to improve, our physical therapists will perform initial evaluation of pt's status upon ad mission and devise an individualized program for Aquatic Therapy, Neuromuscular Reeducation, and Stre ngthening Achieving independence - to improve, our physical therapists will perform initial evaluation of pt's status upon admission and devise an individualized program for Community Reintegration Activities - Occupational Therapy Need for career development specialist - to improve, our occupation therapists will perform initial evaluation of pt's s tatus upon admission and devise an individualized program for Caregiver Training Weakness - to improve, our occupation therapists will perform initial evaluation of pt's status upon admission and devise an individualized program for Aquatic Therapy, Balance, Endurance, UE ROM, and U E strengthening MEDICAL PLAN: - Diet Type Start Regular - Diet - Liquid Texture Start Regular - Tube Feed Start N/A - Weight Bearing Precaution WBAT left LE - Skin care per protocol - Other See attached MAR (Medication Administration Record) - Diet - Solid Texture Regular - Shower shower DISCHARGE PLAN: - Estimated Length of Stay (days) 14. - Consensus on plan Discharge plan has been discussed with primary caregiver. Patient/Family is in agreement with the cindy n. Primary caregiver is in agreement with the plan. - Patient/Family Goals Return home independently. - Planned Living Setting Upon Discharge Home, to live with Family/Relatives. Transitional Living. SIGNATURE PANEL: ([employer])
--- NOTE | 2020-09-10 18:18 | PAPE ---
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 Lloyd Dupont M.D. ADMISSION DIAGNOSIS: LEFT DISTAL FEMUR FRACTURE ONSET DATE 09/05/2020 POST-ADMISSION FUNCTIONAL/MEDICAL STATUS: - Bladder Same accident frequency: 7-Ind - No accidents in the past 7 days - Bowel Same accident frequency: 7-Ind - No accidents in the past 7 days - Walking Same score based on distance walked: 0(N/A) Same score based on distance walked: 1(<=50ft) - Wheelchair Same score based on distance traveled: 0(N/A) STATUS CHANGE EVALUATION: No change in Functional or Medical Status is identified compared with Pre-Admission screening. PATIENT NEEDS CLOSE MEDICAL SUPERVISION BY A REHABILITATION PHYSICIAN FOR: Coordination of Treatment Team PATIENT REQUIRES 24X7 REHAB NURSING FOR MEDICAL AND FUNCTIONAL MGT. OF THE FOLLOWING DEFICITS: Disease Management Medication Management Patient/Family Education Providing Safe Environment PATIENT REQUIRES INTENSIVE, COORDINATED INTERDISCIPLINARY APPROACH TO REHAB: Arranging Home Equipment/Services Discharge Planning Family Intervention/Training Deicer Tester/Case Management LIST OF IDENTIFIED AND POTENTIAL PROBLEMS: Alteration in leisure activities Bladder, Incontinence Bowel, Incontinence Infection, Actual or Potential Mobility Impaired Pain, Alteration in Comfort Self Care Deficit Skin Integrity, Actual or Potential Urinary Tract Infection (UTI), Actual or Potential PATIENT COULD BE AT RISK FOR COMPLICATIONS FROM ADVERSE MEDICAL CONDITIONS DUE TO HIS/HER COMORBIDITI ES AND THE RIGORS OF THE INTENSIVE REHABILLITATION PROGRAM. METHODS OR INTERVENTIONS TO AVOID COMPLIC ATIONS INCLUDE: - Infection Clinical staff to assess and manage the signs and symptoms of infection including fever, redness, war mth, etc. - Urinary Tract Infection - Falls Patient will be evaluated for Fall Precautions and will be placed on Fall Precautions as indicated pe r protocol. - Skin Breakdown Nursing will assess skin daily using assessment tool and will place on Skin Breakdown Precautions as indicated per protocol. - Pain Clinical staff may employ non-medication methods such as massage, distraction, decrease stimulus, etc . as needed. Clinical staff will assess patient's pain level every shift per protocol to assess and e nsure pain management effectiveness. Medications will be given and the pain level re-assessed. PRELIMINARY PLAN OF CARE: - Physical Therapy Patient needs Physical Therapy for a daily minimum of 1.5 hours at least 5 out of 7 days, to improve: Mobility, Strengthening, Transfers, Stretching, ROM, Endurance, Ability to manage stairs, Gait, and Balance. - Speech Therapy Patient needs Speech Therapy for a daily minimum of 0.5 hours at least 5 out of 7 days, to improve: S wallowing, Cognition, Language Skills, and Compensatory Strategies. - Rehabilitation Nursing Patient requires 24x7 Rehabilitation Nursing for: Pain Issues, Identifying and preventing risk factor s, Monitoring and reporting current medical conditions, Assisting with ambulation and transfer, Slime ting with all ADL-s, Teaching patients about disease process and medications, Family teaching, Provid ing safe environment, Bowel and Bladder Issues, Skin Integrity, and Medication Management. Patient needs Deicer Tester and/or Case Management for: Discharge Planning, Arranging Home Equipmen t or Services, and Family Interventions. - Dietary and Nutrition Services Patient needs Dietary and Nutrition Services for: Adequate Nutrition, Nutritional Supplements, and Nu tritional Education. - Occupational Therapy Patient needs Occupational Therapy for a daily minimum of 1.5 hours at least 5 out of 7 days, to impr ove Activities of Daily Living, including: Eating, Grooming, Bathing, Dressing, Toileting, Toilet Tra nsfers, Community Reintegration, Higher functional activities, Adaptive Equipment, Splinting, Househo ld Tasks, and Other activities as determined. QI SCORES: - Self-Care A. Eating 04-Supervision or touching assistance B. Oral hygiene 03-Partial/moderate assistance C. Toileting hygiene 03-Partial/moderate assistance E. Shower/bathe self 03-Partial/moderate assistance F. Upper body dressing 03-Partial/moderate assistance G. Lower body dressing 03-Partial/moderate assistance H. Putting on/taking off footwear 88-Not attempted due to medical condition or safety concerns - Mobility A. Roll left and right 04-Supervision or touching assistance B. Sit to lying 04-Supervision or touching assistance C. Lying to sitting on side of bed 03-Partial/moderate assistance D. Sit to stand 03-Partial/moderate assistance E. Chair/wpi-zc-frcys transfer 03-Partial/moderate assistance F. Toilet transfer 03-Partial/moderate assistance G. Car transfer 88-Not attempted due to medical condition or safety concerns I. Walk 10 feet 88-Not attempted due to medical condition or safety concerns J. Walk 50 feet with two turns 88-Not attempted due to medical condition or safety concerns K. Walk 150 feet 88-Not attempted due to medical condition or safety concerns L. Walking 10 feet on uneven surfaces 88-Not attempted due to medical condition or safety concerns M. 1 step (curb) 88-Not attempted due to medical condition or safety concerns N. 4 steps 88-Not attempted due to medical condition or safety concerns O. 12 steps 88-Not attempted due to medical condition or safety concerns P. Picking up object 88-Not attempted due to medical condition or safety concerns R. Wheel 50 feet with two turns 88-Not attempted due to medical condition or safety concerns S. Wheel 150 feet 88-Not attempted due to medical condition or safety concerns - Bladder and Bowel Bladder continence Bowel continence - Endurance Fair - Balance Fair - Safety Awareness Fair POTENTIAL FUNCTIONAL GOALS FOR PATIENT TO ACHIEVE BY DISCHARGE: - Safety Precaution Patient will remain free from falls or injury at time of discharge. - Bed Mobility Patient will perform bed mobility at 4-Marcelo level of assistance. - Transfers Patient will complete transfers from bed to chair at 4-Marcelo level of assistance. - Mobility Patient will ambulate 150 ft with 4-Marcelo level of assistance with RW. PATIENT REHAB POTENTIAL Tucker COLBERT is able and expected to receive 3 hours of individualized therapy daily on at least 5 of ev mervin 7 days Tucker COLBERT's prognosis for significant practical improvement within a reasonable period of time appear s Good Expected level of measurable improvement will be of a practical value to Tucker COLBERT's functional capac ity or adaptations to impairments Has a viable Discharge Plan Medically appropriate; condition is sufficiently stable to participate in intensive rehab program DISCHARGE PLAN: - Estimated Length of Stay (days) 14. - Consensus on plan Discharge plan has been discussed with primary caregiver. Patient/Family is in agreement with the cindy n. Primary caregiver is in agreement with the plan. - Patient/Family Goals Return home independently. - Planned Living Setting Upon Discharge Home, to live with Family/Relatives. Transitional Living. CONCLUSION ON REHABILITATION NECESSITY: I have evaluated patient's pre-admission functional status and, comparing it to the patient's post-ad mission functional status now, I conclude that the pre-admission assessment was accurate. Patient's c ondition on admission supports the medical necessity of admission to [facility]. It is safe to proceed with patient's therapy program. SIGNATURE PANEL: (ASSAYER)
[2020-09-10] MEDS: DOCUSATE NA/SENNA CONC 1 TAB PO PRN (20:29)
[2020-09-10] MEDS: ATORVASTATIN 40 MG TAB PO SCH (20:29)
[2020-09-11 02:35] LABS: Hematocrit 24.6 % (36.0-45.0)
[2020-09-11] MEDS: ENOXAPARIN 30 MG/0.3 ML SQ SCH ×2 (07:00→19:19)
[2020-09-11] MEDS: LEVOTHYROXINE SOD 0.1 MG TAB PO SCH (07:05)
[2020-09-11] MEDS: Biotin 5,000 MCG PO SCH (08:00)
[2020-09-11] MEDS: lisinopriL 20 MG TAB PO SCH (08:39)
[2020-09-11] MEDS: CYANOCOBALAMIN 1,000 MCG TAB PO SCH (08:39)
[2020-09-11] MEDS: MULTIVITAMIN TAB PO SCH (08:40)
[2020-09-11] MEDS: ASPIRIN EC 81 MG TAB PO SCH (08:40)
[2020-09-11] MEDS: ACETAMINOPHEN 500 MG TAB PO PRN ×2 (09:10→19:26)
--- NOTE | 2020-09-11 18:06 | R.PN ---
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 SUBJECTIVE: Pt denied any depression. Pt denied any Shortness of Breath. Hgb increased to 8.5 from 6.9 after 2 units of PRBCs, prealbumin 8.9. Ambulated 30' with rolling walker and contact guard assistance. VITAL SIGNS Temperature: 98.8 F SBP/DBP: 146/73 Pulse: 68 Resp: 16 MEDICATION ALLERGIES: CODEINE SULFATE ENVIRONMENTAL ALLERGIES: - Substance Allergies None Known - Other Allergies None Known NURSING: - Shower allowing shower - Skin care per protocol PRECAUTIONS: - Weight Bearing Precaution WBAT left LE ACTIVITIES OOB only with supervision THERAPIES: - Dietary and Nutrition Adequate Nutrition. Nutritional Education. Nutritional Supplements. PHYSICAL EXAM - Gen Alert and awake Lying in bed No apparent distress Oriented to: person, time, and place - Skin Left hip incision intact and left leg is wrapped. No numbness - Eyes No abnormalities - ENMT No abnormalities - Neck No abnormalities - CVS RRR - Chest Clear - Abd + bowel sounds - GI Soft Deferred - No abnormalities - Ext Mild left lower extremity edema. - MSK 4+/5 weakness in left lower extremity - Neuro 4/5 strength left lower extremity. - Psych No abnormalities ASSESSMENT: Pt. is a 80 yo Right-handed female of unknown race.She has past medical history significant for DX on MEDIC.On 09/05/2020 she was admitted to [facility] with diagnosis LEFT DISTAL FEMUR FRACTURE. Her impairment category is Orthopaedic Disorders 08 - Femur (Shaft) Fracture (08.2).Pre-morbidly, Pt . was independent/mod-I in Balance, Endurance, Transfers Control, and Locomotion; and she had good Sa fety Awareness and Communication.Currently, she has deficits of Locomotion, Balance, Transfers Contro l, Endurance, and Sphincter Control.Pt. is now referred to [facility] for acut e in-patient rehabilitation in order to maximize patient's functional independence in activities of d aily living, strength, ROM, and mobility.- Rehab Goal Patient has realistic goal of being discharged at assistance level 7-Ind to reside at Home with Fami ly/Relatives. MDM/PLAN: - Physical Therapy Decreased range of motion - to improve, our physical therapists will perform initial evaluation of p t's status upon admission and devise an individualized program for increasing patient's Range of Girish on. Gait dysfunction - to improve, our physical therapists will perform initial evaluation of pt's statu s upon admission and devise an individualized program for Gait Training, and Wheel Chair mobility Inability to transfer - to improve, our physical therapists will perform initial evaluation of pt's status upon admission and devise an individualized program for Bed mobility Need for home safety evaluation - to improve, our physical therapists will perform initial evaluatio n of pt's status upon admission and devise an individualized program for Home Evaluation Need in caregiver upon discharge - to improve, our physical therapists will perform initial evaluati on of pt's status upon admission and devise an individualized program for Caregiver Training New precaution - to improve, our physical therapists will perform initial evaluation of pt's status upon admission and devise an individualized program for Patient precaution education Edema - to improve, our physical therapists will perform initial evaluation of pt's status upon admis adela and devise an individualized program for Elevation Training, and Lymphedema Therapy Poor balance - to improve, our physical therapists will perform initial evaluation of pt's status up on admission and devise an individualized program for Balance Training Poor endurance - to improve, our physical therapists will perform initial evaluation of pt's status upon admission and devise an individualized program for Endurance Training Weakness - to improve, our physical therapists will perform initial evaluation of pt's status upon a dmission and devise an individualized program for Aquatic Therapy, Neuromuscular Reeducation, and Str engthening Achieving independence - to improve, our physical therapists will perform initial evaluation of pt's status upon admission and devise an individualized program for Community Reintegration Activities - Occupational Therapy Need for acute care certified nursing assistant - to improve, our occupation therapists will perform initial evaluation of pt's status upon admission and devise an individualized program for Caregiver Training Weakness - to improve, our occupation therapists will perform initial evaluation of pt's status upon admission and devise an individualized program for Aquatic Therapy, Balance, Endurance, UE ROM, and UE strengthening - Other See attached MAR (Medication Administration Record) - Diet Type Continue Regular - Diet - Liquid Texture Continue Regular - Tube Feed Continue N/A - Weight Bearing Precaution WBAT left LE - Skin care per protocol - Diet - Solid Texture Continue Regular - Shower allowing shower FUNCTIONAL STATUS: UPDATED AT WEEKLY TEAM CONFERENCE - Bladder Same accident frequency: 7-Ind - No accidents in the past 7 days - Bowel Same accident frequency: 7-Ind - No accidents in the past 7 days - Walking Same score based on distance walked: 0(N/A) Same score based on distance walked: 1(<=50ft) - Wheelchair Same score based on distance traveled: 0(N/A) FUNCTIONAL STATUS: - Self-Care A. Eating Radha B. Grooming Radha C. Bathing modA D. Dressing - Upper Marcelo E. Dressing - Lower modA F. Toileting Marcelo - Sphincter Control G. Bladder control Marcelo H. Bowel control Marcelo - Transfers Control I. Bed/Chair/Wheelchair Marcelo J. Toilet Marcelo K. Tub/Shower modA - Locomotion L. Walk/Wheelchair (B) Marcelo M. Stairs ADNO - Communication N. Comprehension (B) Radha O. Expression (B) Radha - Social Cognition P. Social Interaction sup Q. Problem Solving sup R. Memory sup - Endurance Poor - Balance Fair - Safety Awareness Fair QI SCORES: - Self-Care A. Eating 04-Supervision or touching assistance B. Oral hygiene 03-Partial/moderate assistance C. Toileting hygiene 03-Partial/moderate assistance E. Shower/bathe self 03-Partial/moderate assistance F. Upper body dressing 03-Partial/moderate assistance G. Lower body dressing 03-Partial/moderate assistance H. Putting on/taking off footwear 88-Not attempted due to medical condition or safety concerns - Mobility A. Roll left and right 04-Supervision or touching assistance B. Sit to lying 04-Supervision or touching assistance C. Lying to sitting on side of bed 03-Partial/moderate assistance D. Sit to stand 03-Partial/moderate assistance E. Chair/[id number] transfer 03-Partial/moderate assistance F. Toilet transfer 03-Partial/moderate assistance G. Car transfer 88-Not attempted due to medical condition or safety concerns I. Walk 10 feet 88-Not attempted due to medical condition or safety concerns J. Walk 50 feet with two turns 88-Not attempted due to medical condition or safety concerns K. Walk 150 feet 88-Not attempted due to medical condition or safety concerns L. Walking 10 feet on uneven surfaces 88-Not attempted due to medical condition or safety concerns M. 1 step (curb) 88-Not attempted due to medical condition or safety concerns N. 4 steps 88-Not attempted due to medical condition or safety concerns O. 12 steps 88-Not attempted due to medical condition or safety concerns P. Picking up object 88-Not attempted due to medical condition or safety concerns R. Wheel 50 feet with two turns 88-Not attempted due to medical condition or safety concerns S. Wheel 150 feet 88-Not attempted due to medical condition or safety concerns - Bladder and Bowel Bladder continence Bowel continence - Endurance Fair - Balance Fair - Safety Awareness Fair CURRENT [facility]. 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
[2020-09-11] MEDS: CRANBERRY FRUIT EXTRACT 200 MG CAP PO SCH (19:20)
[2020-09-11] MEDS: ATORVASTATIN 40 MG TAB PO SCH (20:07)
[2020-09-12] MEDS: LEVOTHYROXINE SOD 0.1 MG TAB PO SCH (05:30)
[2020-09-12] MEDS: ENOXAPARIN 30 MG/0.3 ML SQ SCH ×2 (07:25→21:00)
[2020-09-12 08:16] LABS: Hematocrit 28.2 % (36.0-45.0)
[2020-09-12] MEDS: ACETAMINOPHEN 500 MG TAB PO PRN ×2 (08:35→21:01)
[2020-09-12] MEDS: Biotin 5,000 MCG PO SCH (08:35)
[2020-09-12] MEDS: lisinopriL 20 MG TAB PO SCH (08:36)
[2020-09-12] MEDS: CRANBERRY FRUIT EXTRACT 200 MG CAP PO SCH ×2 (08:36→21:01)
[2020-09-12] MEDS: MULTIVITAMIN TAB PO SCH (08:37)
[2020-09-12] MEDS: FE SULF/FA/VIT B COMP & C TAB PO SCH (08:37)
[2020-09-12] MEDS: FERROUS SULFATE 325 MG TAB PO SCH (08:37)
[2020-09-12] MEDS: ASPIRIN EC 81 MG TAB PO SCH (08:37)
[2020-09-12] MEDS: CYANOCOBALAMIN 1,000 MCG TAB PO SCH (08:37)
--- NOTE | 2020-09-12 10:02 | P.RH.PN ---
Estimated Length of Stay: 15 Expected Discharge Date: 09/23/20 Discharge Disposition Plan: Home Family Support: Yes Half-Way Goal: Mobility, Transfers, Self Care Vital Signs: Last Vital Signs Temp 98.1 F 09/11/20 20:00 Pulse 82 09/12/20 08:36 Resp 18 09/11/20 20:00 BP 126/82 09/12/20 08:36 Pulse Ox 98 09/11/20 20:00 Laboratory: Laboratory Last Values WBC 6.80 K/uL (4.3-10.9) 09/10/20 06:39 RBC 2.01 M/uL (3.86-4.86) L 09/10/20 06:39 Hgb 9.7 g/dL (12.0-15.0) L 09/12/20 07:48 Hct 28.2 % (36.0-45.0) L 09/12/20 07:48 MCV 100.8 fL (80-100) H 09/10/20 06:39 MCH 34.4 pg (27.0-35.0) 09/10/20 06:39 MCHC 34.2 g/dL (32.0-36.0) 09/10/20 06:39 RDW 15.7 % (12.1-15.2) H 09/10/20 06:39 Plt Count 228 K/uL (152-406) 09/10/20 06:39 MPV 10.0 fL (7.6-11.3) 09/10/20 06:39 Neutrophils % 60.6 % (41.7-73.7) 09/10/20 06:39 Lymphocytes % 25.8 % (15.3-44.8) 09/10/20 06:39 Monocytes % 8.9 % (3.3-12.3) 09/10/20 06:39 Eosinophils % 4.3 % (0-4.4) 09/10/20 06:39 Basophils % 0.4 % (0-1.3) 09/10/20 06:39 Absolute Neutrophils 4.1 K/uL (1.8-8.0) 09/10/20 06:39 Absolute Lymphocytes 1.8 K/uL (0.7-4.9) 09/10/20 06:39 Absolute Monocytes 0.6 K/uL (0.1-1.3) 09/10/20 06:39 Absolute Eosinophils 0.3 K/uL (0-0.5) 09/10/20 06:39 Absolute Basophils 0.0 K/uL (0-0.5) 09/10/20 06:39 Sodium 140 mmol/L (136-145) 09/10/20 06:39 Potassium 4.1 mmol/L (3.5-5.1) 09/10/20 06:39 Chloride 104 mmol/L (98-107) 09/10/20 06:39 Carbon Dioxide 32 mmol/L (21-32) 09/10/20 06:39 BUN 18 mg/dL (7-18) 09/10/20 06:39 Creatinine 0.40 mg/dL (0.55-1.3) L 09/10/20 06:39 Estimated GFR > 90 mL/min (=/>90) 09/10/20 06:39 Glucose 93 mg/dL (74-106) 09/10/20 06:39 Calcium 8.5 mg/dL (8.5-10.1) 09/10/20 06:39 Magnesium 2.2 mg/dL (1.8-2.4) 09/10/20 06:39 Albumin 2.4 g/dL (3.4-5.0) L 09/10/20 06:39 Prealbumin 8.9 mg/dL (20-40) L 09/10/20 06:39 SARS-CoV-2 RNA (RT-PCR) Positive (NEGATIVE) A 09/09/20 23:25 ABO/Rh O POSITIVE 09/10/20 09:25 Solid Phase Ab Screen Negative 09/10/20 09:25 Crossmatch See Detail 09/10/20 09:25 Weight: 182 lb Wound Present: No Closed Surgical Incision Present: Yes Physician Update: Labs reviewed and are stable. Walking 10' min assistance. Very weak, easily irritated. Total assistance with toileting and lower body dressing. 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 Please see the Rehabilitation Signature page for all necessary signatures.
[2020-09-12 10:56] LABS: Urine Appearance CLEAR; Urine Bilirubin NEGATIVE (NEG); Urine Blood NEGATIVE (NEG); Urine Color YELLOW; Urine Glucose NEGATIVE (NEG); Urine Protein NEGATIVE (NEG); Urine Urobilinogen 0.2 mg/dL (0.2-1.0); Urine pH 5.5 (5.0-7.0)
[2020-09-12 11:05] LABS: Urine Bacteria <20 /HPF (<20); Urine RBC <5 /HPF (NONE SEEN); Urine Urothelial Cells <5 /HPF (NONE SEEN)
[2020-09-12] MEDS: ATORVASTATIN 40 MG TAB PO SCH (21:00)
[2020-09-12] MEDS: DOCUSATE NA/SENNA CONC 1 TAB PO PRN (21:00)
[2020-09-13] MEDS: LEVOTHYROXINE SOD 0.1 MG TAB PO SCH (07:14)
[2020-09-13] MEDS: lisinopriL 20 MG TAB PO SCH (08:00)
[2020-09-13] MEDS: CRANBERRY FRUIT EXTRACT 200 MG CAP PO SCH ×2 (09:56→19:23)
[2020-09-13] MEDS: MULTIVITAMIN TAB PO SCH (09:56)
[2020-09-13] MEDS: CYANOCOBALAMIN 1,000 MCG TAB PO SCH (09:57)
[2020-09-13] MEDS: FERROUS SULFATE 325 MG TAB PO SCH (09:57)
[2020-09-13] MEDS: FE SULF/FA/VIT B COMP & C TAB PO SCH (09:57)
[2020-09-13] MEDS: ASPIRIN EC 81 MG TAB PO SCH (09:57)
[2020-09-13] MEDS: ENOXAPARIN 30 MG/0.3 ML SQ SCH ×2 (10:54→19:23)
[2020-09-13] MEDS: Biotin 5,000 MCG PO SCH (10:55)
[2020-09-13] MEDS: ACETAMINOPHEN 500 MG TAB PO PRN (13:24)
[2020-09-13] MEDS: ATORVASTATIN 40 MG TAB PO SCH (19:23)
[2020-09-14] MEDS: LEVOTHYROXINE SOD 0.1 MG TAB PO SCH (06:41)
[2020-09-14] MEDS: lisinopriL 20 MG TAB PO SCH (08:00)
[2020-09-14] MEDS: CRANBERRY FRUIT EXTRACT 200 MG CAP PO SCH ×2 (08:19→20:52)
[2020-09-14] MEDS: FE SULF/FA/VIT B COMP & C TAB PO SCH (08:19)
[2020-09-14] MEDS: ASPIRIN EC 81 MG TAB PO SCH (08:20)
[2020-09-14] MEDS: MULTIVITAMIN TAB PO SCH (08:20)
[2020-09-14] MEDS: FERROUS SULFATE 325 MG TAB PO SCH (08:20)
[2020-09-14] MEDS: CYANOCOBALAMIN 1,000 MCG TAB PO SCH (08:20)
[2020-09-14] MEDS: Biotin 5,000 MCG PO SCH (08:21)
[2020-09-14] MEDS: ENOXAPARIN 30 MG/0.3 ML SQ SCH ×2 (09:17→20:52)
[2020-09-14] MEDS: ACETAMINOPHEN 500 MG TAB PO PRN (20:52)
[2020-09-14] MEDS: ATORVASTATIN 40 MG TAB PO SCH (20:52)
[2020-09-15] MEDS: LEVOTHYROXINE SOD 0.1 MG TAB PO SCH (06:37)
[2020-09-15] MEDS: ENOXAPARIN 30 MG/0.3 ML SQ SCH ×2 (06:37→19:18)
[2020-09-15] MEDS: ACETAMINOPHEN 500 MG TAB PO PRN ×2 (08:22→19:18)
[2020-09-15] MEDS: lisinopriL 20 MG TAB PO SCH (08:23)
[2020-09-15] MEDS: CRANBERRY FRUIT EXTRACT 200 MG CAP PO SCH ×2 (08:23→19:18)
[2020-09-15] MEDS: MULTIVITAMIN TAB PO SCH (08:24)
[2020-09-15] MEDS: Biotin 5,000 MCG PO SCH (08:24)
[2020-09-15] MEDS: FE SULF/FA/VIT B COMP & C TAB PO SCH (08:24)
[2020-09-15] MEDS: FERROUS SULFATE 325 MG TAB PO SCH (08:24)
[2020-09-15] MEDS: ASPIRIN EC 81 MG TAB PO SCH (08:24)
[2020-09-15] MEDS: CYANOCOBALAMIN 1,000 MCG TAB PO SCH (08:24)
--- NOTE | 2020-09-15 19:13 | R.PN ---
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 SUBJECTIVE: Pt denied any depression. Pt denied any Shortness of Breath. Hgb increased to 9.7 from 6.9 after 2 units of PRBCs, prealbumin 8.9. Ambulated 6500' with rolling walker and contact guard assistance. VITAL SIGNS Temperature: 97.8 F SBP/DBP: 128/58 Pulse: 64 Resp: 16 MEDICATION ALLERGIES: CODEINE SULFATE ENVIRONMENTAL ALLERGIES: - Substance Allergies None Known - Other Allergies None Known NURSING: - Shower allowing shower - Skin care per protocol PRECAUTIONS: - Weight Bearing Precaution WBAT left LE ACTIVITIES OOB only with supervision THERAPIES: - Dietary and Nutrition Adequate Nutrition. Nutritional Education. Nutritional Supplements. PHYSICAL EXAM - Gen Alert and awake Lying in bed No apparent distress Oriented to: person, time, and place - Skin Left hip incision intact and left leg is wrapped. No numbness - Eyes No abnormalities - ENMT No abnormalities - Neck No abnormalities - CVS RRR - Chest Clear - Abd + bowel sounds - GI Soft Deferred - No abnormalities - Ext Mild left lower extremity edema. - MSK 4+/5 weakness in left lower extremity - Neuro 4/5 strength left lower extremity. - Psych No abnormalities ASSESSMENT: Pt. is a 80 yo Right-handed female of unknown race.She has past medical history significant for DX on MEDIC.On 09/05/2020 she was admitted to [facility] with diagnosis LEFT DISTAL FEMUR FRACTURE. Her impairment category is Orthopaedic Disorders 08 - Femur (Shaft) Fracture (08.2).Pre-morbidly, Pt . was independent/mod-I in Balance, Endurance, Transfers Control, and Locomotion; and she had good Sa fety Awareness and Communication.Currently, she has deficits of Locomotion, Balance, Transfers Contro l, Endurance, and Sphincter Control.Pt. is now referred to [facility] for acut e in-patient rehabilitation in order to maximize patient's functional independence in activities of d aily living, strength, ROM, and mobility.- Rehab Goal Patient has realistic goal of being discharged at assistance level 7-Ind to reside at Home with Fami ly/Relatives. MDM/PLAN: - Physical Therapy Decreased range of motion - to improve, our physical therapists will perform initial evaluation of p t's status upon admission and devise an individualized program for increasing patient's Range of Girish on. Gait dysfunction - to improve, our physical therapists will perform initial evaluation of pt's statu s upon admission and devise an individualized program for Gait Training, and Wheel Chair mobility Inability to transfer - to improve, our physical therapists will perform initial evaluation of pt's status upon admission and devise an individualized program for Bed mobility Need for home safety evaluation - to improve, our physical therapists will perform initial evaluatio n of pt's status upon admission and devise an individualized program for Home Evaluation Need in caregiver upon discharge - to improve, our physical therapists will perform initial evaluati on of pt's status upon admission and devise an individualized program for Caregiver Training New precaution - to improve, our physical therapists will perform initial evaluation of pt's status upon admission and devise an individualized program for Patient precaution education Edema - to improve, our physical therapists will perform initial evaluation of pt's status upon admi ssion and devise an individualized program for Elevation Training, and Lymphedema Therapy Poor balance - to improve, our physical therapists will perform initial evaluation of pt's status up on admission and devise an individualized program for Balance Training Poor endurance - to improve, our physical therapists will perform initial evaluation of pt's status upon admission and devise an individualized program for Endurance Training Weakness - to improve, our physical therapists will perform initial evaluation of pt's status upon a dmission and devise an individualized program for Aquatic Therapy, Neuromuscular Reeducation, and Str engthening Achieving independence - to improve, our physical therapists will perform initial evaluation of pt's status upon admission and devise an individualized program for Community Reintegration Activities - Occupational Therapy Need for ocular care technician - to improve, our occupation therapists will perform initial evaluation of pt's status upon admission and devise an individualized program for Caregiver Training Weakness - to improve, our occupation therapists will perform initial evaluation of pt's status upon admission and devise an individualized program for Aquatic Therapy, Balance, Endurance, UE ROM, and UE strengthening - Other See attached MAR (Medication Administration Record) - Diet Type Continue Regular - Diet - Liquid Texture Continue Regular - Tube Feed Continue N/A - Weight Bearing Precaution WBAT left LE - Skin care per protocol - Diet - Solid Texture Continue Regular - Shower allowing shower FUNCTIONAL STATUS: UPDATED AT WEEKLY TEAM CONFERENCE - Bladder Same accident frequency: 7-Ind - No accidents in the past 7 days - Bowel Same accident frequency: 7-Ind - No accidents in the past 7 days - Walking Same score based on distance walked: 0(N/A) Same score based on distance walked: 1(<=50ft) - Wheelchair Same score based on distance traveled: 0(N/A) FUNCTIONAL STATUS: - Self-Care A. Eating Radha B. Grooming Radha C. Bathing modA D. Dressing - Upper Marcelo E. Dressing - Lower modA F. Toileting Marcelo - Sphincter Control G. Bladder control Marcelo H. Bowel control Marcelo - Transfers Control I. Bed/Chair/Wheelchair Marcelo J. Toilet Marcelo K. Tub/Shower modA - Locomotion L. Walk/Wheelchair (B) Marcelo M. Stairs ADNO - Communication N. Comprehension (B) Radha O. Expression (B) Radha - Social Cognition P. Social Interaction sup Q. Problem Solving sup R. Memory sup - Endurance Poor - Balance Fair - Safety Awareness Fair QI SCORES: - Self-Care A. Eating 04-Supervision or touching assistance B. Oral hygiene 03-Partial/moderate assistance C. Toileting hygiene 03-Partial/moderate assistance E. Shower/bathe self 03-Partial/moderate assistance F. Upper body dressing 03-Partial/moderate assistance G. Lower body dressing 03-Partial/moderate assistance H. Putting on/taking off footwear 88-Not attempted due to medical condition or safety concerns - Mobility A. Roll left and right 04-Supervision or touching assistance B. Sit to lying 04-Supervision or touching assistance C. Lying to sitting on side of bed 03-Partial/moderate assistance D. Sit to stand 03-Partial/moderate assistance E. Chair/[id number] transfer 03-Partial/moderate assistance F. Toilet transfer 03-Partial/moderate assistance G. Car transfer 88-Not attempted due to medical condition or safety concerns I. Walk 10 feet 88-Not attempted due to medical condition or safety concerns J. Walk 50 feet with two turns 88-Not attempted due to medical condition or safety concerns K. Walk 150 feet 88-Not attempted due to medical condition or safety concerns L. Walking 10 feet on uneven surfaces 88-Not attempted due to medical condition or safety concerns M. 1 step (curb) 88-Not attempted due to medical condition or safety concerns N. 4 steps 88-Not attempted due to medical condition or safety concerns O. 12 steps 88-Not attempted due to medical condition or safety concerns P. Picking up object 88-Not attempted due to medical condition or safety concerns R. Wheel 50 feet with two turns 88-Not attempted due to medical condition or safety concerns S. Wheel 150 feet 88-Not attempted due to medical condition or safety concerns - Bladder and Bowel Bladder continence Bowel continence - Endurance Fair - Balance Fair - Safety Awareness Fair CURRENT [facility] [place]. DEFICITS: Self-Care, Mobility, Endurance, Balance, and Safety Awareness SIGNATURE PANEL: (CDT)
[2020-09-15] MEDS: ATORVASTATIN 40 MG TAB PO SCH (19:18)
[2020-09-15] MEDS: DOCUSATE NA/SENNA CONC 1 TAB PO PRN (19:18)
[2020-09-16] MEDS: LEVOTHYROXINE SOD 0.1 MG TAB PO SCH (06:12)
[2020-09-16] MEDS: ENOXAPARIN 30 MG/0.3 ML SQ SCH ×2 (06:12→19:37)
[2020-09-16] MEDS: lisinopriL 20 MG TAB PO SCH (08:00)
[2020-09-16] MEDS: FERROUS SULFATE 325 MG TAB PO SCH (08:29)
[2020-09-16] MEDS: FE SULF/FA/VIT B COMP & C TAB PO SCH (08:29)
[2020-09-16] MEDS: Biotin 5,000 MCG PO SCH (08:29)
[2020-09-16] MEDS: MULTIVITAMIN TAB PO SCH (08:29)
[2020-09-16] MEDS: CRANBERRY FRUIT EXTRACT 200 MG CAP PO SCH ×2 (08:29→19:37)
[2020-09-16] MEDS: ASPIRIN EC 81 MG TAB PO SCH (08:29)
[2020-09-16] MEDS: CYANOCOBALAMIN 1,000 MCG TAB PO SCH (08:29)
[2020-09-16] MEDS: ACETAMINOPHEN 500 MG TAB PO PRN ×2 (08:58→19:38)
--- NOTE | 2020-09-16 17:13 | R.PN ---
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 SUBJECTIVE: Pt denied any depression. Pt denied any Shortness of Breath. Hgb increased to 9.7 from 6.9 after 2 units of PRBCs, prealbumin 8.9. Ambulated 750' with rolling walker and contact guard assistance. VITAL SIGNS Temperature: 97.8 F SBP/DBP: 109/49 Pulse: 63 Resp: 16 MEDICATION ALLERGIES: CODEINE SULFATE ENVIRONMENTAL ALLERGIES: - Substance Allergies None Known - Other Allergies None Known NURSING: - Shower allowing shower - Skin care per protocol PRECAUTIONS: - Weight Bearing Precaution WBAT left LE ACTIVITIES OOB only with supervision THERAPIES: - Dietary and Nutrition Adequate Nutrition. Nutritional Education. Nutritional Supplements. PHYSICAL EXAM - Gen Alert and awake Lying in bed No apparent distress Oriented to: person, time, and place - Skin Left hip incision intact and left leg is wrapped. No numbness - Eyes No abnormalities - ENMT No abnormalities - Neck No abnormalities - CVS RRR - Chest Clear - Abd + bowel sounds - GI Soft Deferred - No abnormalities - Ext Mild left lower extremity edema. - MSK 4+/5 weakness in left lower extremity - Neuro 4/5 strength left lower extremity. - Psych No abnormalities ASSESSMENT: Pt. is a 80 yo Right-handed female of unknown race.She has past medical history significant for DX on MEDIC.On 09/05/2020 she was admitted to [facility] with diagnosis LEFT DISTAL FEMUR FRACTURE. Her impairment category is Orthopaedic Disorders 08 - Femur (Shaft) Fracture (08.2).Pre-morbidly, Pt . was independent/mod-I in Balance, Endurance, Transfers Control, and Locomotion; and she had good Sa fety Awareness and Communication.Currently, she has deficits of Locomotion, Balance, Transfers Contro l, Endurance, and Sphincter Control.Pt. is now referred to [facility] for acut e in-patient rehabilitation in order to maximize patient's functional independence in activities of d aily living, strength, ROM, and mobility.- Rehab Goal Patient has realistic goal of being discharged at assistance level 7-Ind to reside at Home with Fami ly/Relatives. MDM/PLAN: - Physical Therapy Decreased range of motion - to improve, our physical therapists will perform initial evaluation of p t's status upon admission and devise an individualized program for increasing patient's Range of Girish on. Gait dysfunction - to improve, our physical therapists will perform initial evaluation of pt's statu s upon admission and devise an individualized program for Gait Training, and Wheel Chair mobility Inability to transfer - to improve, our physical therapists will perform initial evaluation of pt's status upon admission and devise an individualized program for Bed mobility Need for home safety evaluation - to improve, our physical therapists will perform initial evaluatio n of pt's status upon admission and devise an individualized program for Home Evaluation Need in caregiver upon discharge - to improve, our physical therapists will perform initial evaluati on of pt's status upon admission and devise an individualized program for Caregiver Training New precaution - to improve, our physical therapists will perform initial evaluation of pt's status upon admission and devise an individualized program for Patient precaution education Edema - to improve, our physical therapists will perform initial evaluation of pt's status upon admi ssion and devise an individualized program for Elevation Training, and Lymphedema Therapy Poor balance - to improve, our physical therapists will perform initial evaluation of pt's status up on admission and devise an individualized program for Balance Training Poor endurance - to improve, our physical therapists will perform initial evaluation of pt's status upon admission and devise an individualized program for Endurance Training Weakness - to improve, our physical therapists will perform initial evaluation of pt's status upon a dmission and devise an individualized program for Aquatic Therapy, Neuromuscular Reeducation, and Str engthening Achieving independence - to improve, our physical therapists will perform initial evaluation of pt's status upon admission and devise an individualized program for Community Reintegration Activities - Occupational Therapy Need for child care supervisor - to improve, our occupation therapists will perform initial evaluation of pt's status upon admission and devise an individualized program for Caregiver Training Weakness - to improve, our occupation therapists will perform initial evaluation of pt's status upon admission and devise an individualized program for Aquatic Therapy, Balance, Endurance, UE ROM, and UE strengthening - Other See attached MAR (Medication Administration Record) - Diet Type Continue Regular - Diet - Liquid Texture Continue Regular - Tube Feed Continue N/A - Weight Bearing Precaution WBAT left LE - Skin care per protocol - Diet - Solid Texture Continue Regular - Shower allowing shower FUNCTIONAL STATUS: UPDATED AT WEEKLY TEAM CONFERENCE - Bladder Same accident frequency: 7-Ind - No accidents in the past 7 days - Bowel Same accident frequency: 7-Ind - No accidents in the past 7 days - Walking Same score based on distance walked: 0(N/A) Same score based on distance walked: 1(<=50ft) - Wheelchair Same score based on distance traveled: 0(N/A) FUNCTIONAL STATUS: - Self-Care A. Eating Radha B. Grooming Radha C. Bathing modA D. Dressing - Upper Marcelo E. Dressing - Lower modA F. Toileting Marcelo - Sphincter Control G. Bladder control Marcelo H. Bowel control Marcelo - Transfers Control I. Bed/Chair/Wheelchair Marcelo J. Toilet Marcelo K. Tub/Shower modA - Locomotion L. Walk/Wheelchair (B) Marcelo M. Stairs ADNO - Communication N. Comprehension (B) Radha O. Expression (B) Radha - Social Cognition P. Social Interaction sup Q. Problem Solving sup R. Memory sup - Endurance Poor - Balance Fair - Safety Awareness Fair QI SCORES: - Self-Care A. Eating 04-Supervision or touching assistance B. Oral hygiene 03-Partial/moderate assistance C. Toileting hygiene 03-Partial/moderate assistance E. Shower/bathe self 03-Partial/moderate assistance F. Upper body dressing 03-Partial/moderate assistance G. Lower body dressing 03-Partial/moderate assistance H. Putting on/taking off footwear 88-Not attempted due to medical condition or safety concerns - Mobility A. Roll left and right 04-Supervision or touching assistance B. Sit to lying 04-Supervision or touching assistance C. Lying to sitting on side of bed 03-Partial/moderate assistance D. Sit to stand 03-Partial/moderate assistance E. Chair/[id number] transfer 03-Partial/moderate assistance F. Toilet transfer 03-Partial/moderate assistance G. Car transfer 88-Not attempted due to medical condition or safety concerns I. Walk 10 feet 88-Not attempted due to medical condition or safety concerns J. Walk 50 feet with two turns 88-Not attempted due to medical condition or safety concerns K. Walk 150 feet 88-Not attempted due to medical condition or safety concerns L. Walking 10 feet on uneven surfaces 88-Not attempted due to medical condition or safety concerns M. 1 step (curb) 88-Not attempted due to medical condition or safety concerns N. 4 steps 88-Not attempted due to medical condition or safety concerns O. 12 steps 88-Not attempted due to medical condition or safety concerns P. Picking up object 88-Not attempted due to medical condition or safety concerns R. Wheel 50 feet with two turns 88-Not attempted due to medical condition or safety concerns S. Wheel 150 feet 88-Not attempted due to medical condition or safety concerns - Bladder and Bowel Bladder continence Bowel continence - Endurance Fair - Balance Fair - Safety Awareness Fair CURRENT [facility]. DEFICITS: Self-Care, Mobility, Endurance, Balance, and Safety Awareness SIGNATURE PANEL: (CDT)
[2020-09-16] MEDS: ATORVASTATIN 40 MG TAB PO SCH (19:38)
[2020-09-16] MEDS: DOCUSATE NA/SENNA CONC 1 TAB PO PRN (19:38)
[2020-09-17] MEDS: LEVOTHYROXINE SOD 0.1 MG TAB PO SCH (06:37)
[2020-09-17] MEDS: ENOXAPARIN 30 MG/0.3 ML SQ SCH ×2 (06:37→21:06)
[2020-09-17] MEDS: Biotin 5,000 MCG PO SCH (08:21)
[2020-09-17] MEDS: ACETAMINOPHEN 500 MG TAB PO PRN (08:21)
[2020-09-17] MEDS: CRANBERRY FRUIT EXTRACT 200 MG CAP PO SCH ×2 (08:22→21:06)
[2020-09-17] MEDS: CYANOCOBALAMIN 1,000 MCG TAB PO SCH (08:22)
[2020-09-17] MEDS: ASPIRIN EC 81 MG TAB PO SCH (08:22)
[2020-09-17] MEDS: MULTIVITAMIN TAB PO SCH (08:23)
[2020-09-17] MEDS: FE SULF/FA/VIT B COMP & C TAB PO SCH (08:23)
[2020-09-17] MEDS: FERROUS SULFATE 325 MG TAB PO SCH (08:23)
[2020-09-17] MEDS: lisinopriL 20 MG TAB PO SCH (08:23)
[2020-09-17] MEDS: DRISDOL (VITAMIN D=ERGOCALCIFEROL) 50000 UNIT CAP PO SCH (08:24)
[2020-09-17] MEDS: ATORVASTATIN 40 MG TAB PO SCH (21:06)
[2020-09-18] MEDS: LEVOTHYROXINE SOD 0.1 MG TAB PO SCH (06:17)
[2020-09-18 07:10] LABS: Absolute Lymphocytes (CBC) 1.7 K/uL (0.7-4.9); Basophils % 0.8 % (0-1.3); Lymphocytes % 20.4 % (15.3-44.8); MPV 9.5 fL (7.6-11.3); RBC Red Blood Cell Count 2.73 M/uL (3.86-4.86)
[2020-09-18 07:20] LABS: Albumin 2.6 g/dL (3.4-5.0); BUN Blood Urea Nitrogen 32 mg/dL (7-18); Bicarbonate 28 mmol/L (21-32); Glucose Level 101 mg/dL (74-106); Magnesium 2.4 mg/dL (1.8-2.4); Potassium 4.4 mmol/L (3.5-5.1); Prealbumin 14.8 mg/dL (20-40); Sodium Level 142 mmol/L (136-145)
[2020-09-18] MEDS: ENOXAPARIN 30 MG/0.3 ML SQ SCH ×2 (08:00→09:01)
[2020-09-18] MEDS: lisinopriL 20 MG TAB PO SCH (08:00)
[2020-09-18] MEDS: Biotin 5,000 MCG PO SCH (09:00)
[2020-09-18] MEDS: ACETAMINOPHEN 500 MG TAB PO PRN (09:01)
[2020-09-18] MEDS: FERROUS SULFATE 325 MG TAB PO SCH (09:01)
[2020-09-18] MEDS: ASPIRIN EC 81 MG TAB PO SCH (09:01)
[2020-09-18] MEDS: FE SULF/FA/VIT B COMP & C TAB PO SCH (09:01)
[2020-09-18] MEDS: CRANBERRY FRUIT EXTRACT 200 MG CAP PO SCH ×2 (09:02→19:42)
[2020-09-18] MEDS: MULTIVITAMIN TAB PO SCH (09:02)
[2020-09-18] MEDS: CYANOCOBALAMIN 1,000 MCG TAB PO SCH (09:02)
--- NOTE | 2020-09-18 10:04 | P.RH.PN ---
Estimated Length of Stay: 14 Expected Discharge Date: 09/23/20 Discharge Disposition Plan: Home Family Support: Yes [facility] Goal: Mobility, Transfers, Self Care Vital Signs: Last Vital Signs Temp 98.1 F 09/18/20 07:34 Pulse 61 09/18/20 08:00 Resp 16 09/18/20 07:34 BP 97/56 L 09/18/20 08:00 Pulse Ox 94 09/18/20 07:34 Laboratory: Laboratory Last Values WBC 8.30 K/uL (4.3-10.9) D 09/18/20 06:51 RBC 2.73 M/uL (3.86-4.86) L D 09/18/20 06:51 Hgb 8.8 g/dL (12.0-15.0) L 09/18/20 06:51 Hct 27.0 % (36.0-45.0) L 09/18/20 06:51 MCV 99.0 fL (80-100) 09/18/20 06:51 MCH 32.4 pg (27.0-35.0) 09/18/20 06:51 MCHC 32.7 g/dL (32.0-36.0) 09/18/20 06:51 RDW 20.1 % (12.1-15.2) H D 09/18/20 06:51 Plt Count 442 K/uL (152-406) H D 09/18/20 06:51 MPV 9.5 fL (7.6-11.3) 09/18/20 06:51 Neutrophils % 68.7 % (41.7-73.7) 09/18/20 06:51 Lymphocytes % 20.4 % (15.3-44.8) 09/18/20 06:51 Monocytes % 6.4 % (3.3-12.3) 09/18/20 06:51 Eosinophils % 3.7 % (0-4.4) 09/18/20 06:51 Basophils % 0.8 % (0-1.3) 09/18/20 06:51 Absolute Neutrophils 5.7 K/uL (1.8-8.0) 09/18/20 06:51 Absolute Lymphocytes 1.7 K/uL (0.7-4.9) 09/18/20 06:51 Absolute Monocytes 0.5 K/uL (0.1-1.3) 09/18/20 06:51 Absolute Eosinophils 0.3 K/uL (0-0.5) 09/18/20 06:51 Absolute Basophils 0.1 K/uL (0-0.5) 09/18/20 06:51 Sodium 142 mmol/L (136-145) 09/18/20 06:51 Potassium 4.4 mmol/L (3.5-5.1) 09/18/20 06:51 Chloride 109 mmol/L (98-107) H 09/18/20 06:51 Carbon Dioxide 28 mmol/L (21-32) 09/18/20 06:51 BUN 32 mg/dL (7-18) H 09/18/20 06:51 Creatinine 0.56 mg/dL (0.55-1.3) 09/18/20 06:51 Estimated GFR > 90 mL/min (=/>90) 09/18/20 06:51 Glucose 101 mg/dL (74-106) 09/18/20 06:51 Calcium 8.1 mg/dL (8.5-10.1) L 09/18/20 06:51 Magnesium 2.4 mg/dL (1.8-2.4) 09/18/20 06:51 Albumin 2.6 g/dL (3.4-5.0) L 09/18/20 06:51 Prealbumin 14.8 mg/dL (20-40) L 09/18/20 06:51 Urine Color Yellow 09/12/20 10:05 Urine Appearance Clear 09/12/20 10:05 Urine pH 5.5 (5.0-7.0) 09/12/20 10:05 Ur Specific [place] 1.010 (1.005-1.030) 09/12/20 10:05 Glucose (UA)(Auto) Negative (NEG) 09/12/20 10:05 Urine Ketones Negative (NEG) 09/12/20 10:05 Urine Blood Negative (NEG) 09/12/20 10:05 Urine Nitrite Negative (NEG) 09/12/20 10:05 Urine Bilirubin Negative (NEG) 09/12/20 10:05 Urine Urobilinogen 0.2 mg/dL (0.2-1.0) 09/12/20 10:05 Ur Leukocyte Esterase Trace (NEG) H 09/12/20 10:05 Urine RBC <5 /HPF (NONE SEEN) 09/12/20 10:05 Urine WBC <5 /HPF (<5) 09/12/20 10:05 Ur Squamous Epith Cells <5 /HPF (NONE SEEN) 09/12/20 10:05 Ur Urothelial Cells <5 /HPF (NONE SEEN) 09/12/20 10:05 Urine Bacteria <20 /HPF (<20) 09/12/20 10:05 Urine Culture Reflexed Not needed 09/12/20 10:05 Urine Total Protein Negative (NEG) 09/12/20 10:05 SARS-CoV-2 RNA (RT-PCR) Positive (NEGATIVE) A 09/09/20 23:25 ABO/Rh O POSITIVE 09/10/20 09:25 Solid Phase Ab Screen Negative 09/10/20 09:25 Crossmatch See Detail 09/10/20 09:25 Weight: 183 lb Wound Present: No Closed Surgical Incision Present: Yes Negative Pressure Wound Therapy Present: No Physician Update: Her Hgb is low at 8.8 after increasing to 9.7 following 2 units of PRBCs. Will repeat Hgb on Tuesday. Walked 500' with contact guard assistance. Summary: Patient's care plan and supervisor intermediates goals have been reviewed and revised as necessary. Please see the Rehabilitation Signature page for all necessary signatures.
[2020-09-18 10:24] LABS: Blood Morphology Comment NOTED (NOT SEEN); Platelet Estimate ADEQ; White Blood Cell Scan 0 (OK)
[2020-09-18 10:25] LABS: Anisocytosis SLIGHT
[2020-09-18] MEDS: ENOXAPARIN 40 MG/0.4 ML SQ SCH (16:33)
[2020-09-18] MEDS: ATORVASTATIN 40 MG TAB PO SCH (19:42)
[2020-09-19] MEDS: LEVOTHYROXINE SOD 0.1 MG TAB PO SCH (07:15)
[2020-09-19] MEDS: lisinopriL 20 MG TAB PO SCH (08:00)
[2020-09-19] MEDS: ACETAMINOPHEN 500 MG TAB PO PRN ×2 (08:55→21:10)
[2020-09-19] MEDS: FERROUS SULFATE 325 MG TAB PO SCH (08:56)
[2020-09-19] MEDS: CRANBERRY FRUIT EXTRACT 200 MG CAP PO SCH ×2 (08:56→20:44)
[2020-09-19] MEDS: CYANOCOBALAMIN 1,000 MCG TAB PO SCH (08:57)
[2020-09-19] MEDS: ASPIRIN EC 81 MG TAB PO SCH (08:57)
[2020-09-19] MEDS: MULTIVITAMIN TAB PO SCH (08:57)
[2020-09-19] MEDS: Biotin 5,000 MCG PO SCH (08:59)
[2020-09-19] MEDS: FE SULF/FA/VIT B COMP & C TAB PO SCH (09:00)
[2020-09-19] MEDS: ENOXAPARIN 40 MG/0.4 ML SQ SCH (15:58)
[2020-09-19] MEDS: ATORVASTATIN 40 MG TAB PO SCH (20:44)
[2020-09-20] MEDS: LEVOTHYROXINE SOD 0.1 MG TAB PO SCH (07:31)
[2020-09-20 07:40] LABS: Hematocrit 27.6 % (36.0-45.0)
[2020-09-20] MEDS: lisinopriL 20 MG TAB PO SCH (08:00)
[2020-09-20] MEDS: FE SULF/FA/VIT B COMP & C TAB PO SCH (08:52)
[2020-09-20] MEDS: CRANBERRY FRUIT EXTRACT 200 MG CAP PO SCH ×2 (08:52→19:44)
[2020-09-20] MEDS: MULTIVITAMIN TAB PO SCH (08:52)
[2020-09-20] MEDS: CYANOCOBALAMIN 1,000 MCG TAB PO SCH (08:52)
[2020-09-20] MEDS: ASPIRIN EC 81 MG TAB PO SCH (08:52)
[2020-09-20] MEDS: ACETAMINOPHEN 500 MG TAB PO PRN ×2 (08:53→19:45)
[2020-09-20] MEDS: FERROUS SULFATE 325 MG TAB PO SCH (08:53)
[2020-09-20] MEDS: Biotin 5,000 MCG PO SCH (08:54)
--- NOTE | 2020-09-20 14:38 | FAST ---
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 Lloyd Dupont M.D. ADMISSION DIAGNOSIS: - Orthopaedic Disorders 08 - Femur (Shaft) Fracture (08.2) LEFT DISTAL FEMUR FRACTURE. EATING: EATING - STEP 1: Does the patient complete the activity by him/herself with no assistance (physical, verbal/nonverbal cueing, setup/clean-up)? No. EATING - STEP 2: Does the patient need only setup/clean-up assistance from one helper? Yes. 1. [id number] ADMISSION PERFORMANCE: Setup or clean-up assistance CODE: 05 ORAL HYGIENE: ORAL HYGIENE - STEP 1: Does the patient complete the activity by him/herself with no assistance (physical, verbal/nonverbal cueing, setup/clean-up)? No. ORAL HYGIENE - STEP 2: Does the patient need only setup/clean-up assistance from one helper? Yes. 1. [id number] ADMISSION PERFORMANCE: Setup or clean-up assistance CODE: 05 TOILETING HYGIENE: TOILETING HYGIENE - STEP 1: Does the patient complete the activity by him/herself with no assistance (physical, verbal/nonverbal cueing, setup/clean-up)? No. TOILETING HYGIENE - STEP 2: Does the patient need only setup/clean-up assistance from one helper? Yes. 1. [id number] ADMISSION PERFORMANCE: Setup or clean-up assistance CODE: 05 BATHING: Not assessed/no information CODE: - DRESSING - UPPER BODY: DRESSING - UPPER BODY - STEP 1: Does the patient complete the activity by him/herself with no assistance (physical, verbal/nonverbal cueing, setup/clean-up)? No. DRESSING - UPPER BODY - STEP 2: Does the patient need only setup/clean-up assistance from one helper? No. DRESSING - UPPER BODY - STEP 3: Does the patient need only verbal/nonverbal cueing or touching/steadying/contact guard assistance fro m one helper? Yes. 1. [id number] ADMISSION PERFORMANCE: Supervision or touching assistance CODE: 04 DRESSING - LOWER BODY: DRESSING - LOWER BODY - STEP 1: Does the patient complete the activity by him/herself with no assistance (physical, verbal/nonverbal cueing, setup/clean-up)? No. DRESSING - LOWER BODY - STEP 2: Does the patient need only setup/clean-up assistance from one helper? No. DRESSING - LOWER BODY - STEP 3: Does the patient need only verbal/nonverbal cueing or touching/steadying/contact guard assistance fro m one helper? Yes. 1. [id number] ADMISSION PERFORMANCE: Supervision or touching assistance CODE: 04 PUTTING ON/TAKING OFF FOOTWEAR: FOOTWEAR - STEP 1: Does the patient complete the activity by him/herself with no assistance (physical, verbal/nonverbal cueing, setup/clean-up)? No. FOOTWEAR - STEP 2: Does the patient need only setup/clean-up assistance from one helper? No. FOOTWEAR - STEP 3: Does the patient need only verbal/nonverbal cueing or touching/steadying/contact guard assistance fro m one helper? Yes. 1. [id number] ADMISSION PERFORMANCE: Supervision or touching assistance CODE: 04 ROLL LEFT AND RIGHT: ROLL LEFT AND RIGHT - STEP 1: Does the patient complete the activity by him/herself with no assistance (physical, verbal/nonverbal cueing, setup/clean-up)? No. ROLL LEFT AND RIGHT - STEP 2: Does the patient need only setup/clean-up assistance from one helper? No. ROLL LEFT AND RIGHT - STEP 3: Does the patient need only verbal/nonverbal cueing or touching/steadying/contact guard assistance fro m one helper? Yes. 1. [id number] ADMISSION PERFORMANCE: Supervision or touching assistance CODE: 04 SIT TO LYING: SIT TO LYING - STEP 1: Does the patient complete the activity by him/herself with no assistance (physical, verbal/nonverbal cueing, setup/clean-up)? No. SIT TO LYING - STEP 2: Does the patient need only setup/clean-up assistance from one helper? Yes. 1. [id number] ADMISSION PERFORMANCE: Setup or clean-up assistance CODE: 05 LYING TO SITTING: LYING TO SITTING ON SIDE OF BED - STEP 1: Does the patient complete the activity by him/herself with no assistance (physical, verbal/nonverbal cueing, setup/clean-up)? No. LYING TO SITTING ON SIDE OF BED - STEP 2: Does the patient need only setup/clean-up assistance from one helper? Yes. 1. [id number] ADMISSION PERFORMANCE: Setup or clean-up assistance CODE: 05 SIT TO STAND: SIT TO STAND - STEP 1: Does the patient complete the activity by him/herself with no assistance (physical, verbal/nonverbal cueing, setup/clean-up)? No. SIT TO STAND - STEP 2: Does the patient need only setup/clean-up assistance from one helper? No. SIT TO STAND - STEP 3: Does the patient need only verbal/nonverbal cueing or touching/steadying/contact guard assistance fro m one helper? Yes. 1. [id number] ADMISSION PERFORMANCE: Supervision or touching assistance CODE: 04 TRANSFERS: BED, CHAIR: CHAIR/[id number] TRANSFER - STEP 1: Does the patient complete the activity by him/herself with no assistance (physical, verbal/nonverbal cueing, setup/clean-up)? No. CHAIR/[id number] TRANSFER - STEP 2: Does the patient need only setup/clean-up assistance from one helper? Yes. 1. [id number] ADMISSION PERFORMANCE: Setup or clean-up assistance CODE: 05 TRANSFER TOILET: TOILET TRANSFER - STEP 1: Does the patient complete the activity by him/herself with no assistance (physical, verbal/nonverbal cueing, setup/clean-up)? No. TOILET TRANSFER - STEP 2: Does the patient need only setup/clean-up assistance from one helper? Yes. 1. [id number] ADMISSION PERFORMANCE: Setup or clean-up assistance CODE: 05 TRANSFERS: CAR: Not assessed/no information CODE: - WALK 10 FEET: Not assessed/no information CODE: - 1 STEP (CURB): Not assessed/no information CODE: - PICKING UP OBJECT: Not assessed/no information CODE: - DOES THE PATIENT USE A WHEELCHAIR/SCOOTER? Q1. DOES THE PATIENT USE A WHEELCHAIR/SCOOTER?: Yes CODE: 1 WHEEL 50 FEET WITH TWO TURNS: WHEEL 50 FEET WITH TWO TURNS - STEP 1: Does the patient complete the activity by him/herself with no assistance (physical, verbal/nonverbal cueing, setup/clean-up)? No. WHEEL 50 FEET WITH TWO TURNS - STEP 2: Does the patient need only setup/clean-up assistance from one helper? No. WHEEL 50 FEET WITH TWO TURNS - STEP 3: Does the patient need only verbal/nonverbal cueing or touching/steadying/contact guard assistance fro m one helper? Yes. 1. [id number] ADMISSION PERFORMANCE: Supervision or touching assistance CODE: 04 INDICATE THE TYPE OF WHEELCHAIR/SCOOTER USED: RR1. INDICATE THE TYPE OF WHEELCHAIR/SCOOTER USED.: Manual CODE: 1 WHEEL 150 FEET: WHEEL 150 FEET - STEP 1: Does the patient complete the activity by him/herself with no assistance (physical, verbal/nonverbal cueing, setup/clean-up)? No. WHEEL 150 FEET - STEP 2: Does the patient need only setup/clean-up assistance from one helper? No. WHEEL 150 FEET - STEP 3: Does the patient need only verbal/nonverbal cueing or touching/steadying/contact guard assistance fro m one helper? Yes. 1. [id number] ADMISSION PERFORMANCE: Supervision or touching assistance CODE: 04 INDICATE THE TYPE OF WHEELCHAIR/SCOOTER USED: SS1. INDICATE THE TYPE OF WHEELCHAIR/SCOOTER USED.: Manual CODE: 1 BLADDER AND BOWEL: H350. BLADDER CONTINENCE (3-DAY ASSESSMENT PERIOD): Always continent (no documented incontinence) CODE: 0 H400. BOWEL CONTINENCE (3-DAY ASSESSMENT PERIOD): Always continent CODE: 0 SIGNATURE PANEL: The following modified sections: 1. [id number] Admission Performance, 1. [id number] Admission Performance, 1. [id number] Admission Performance, 1. [id number] Admission Performance, 1. [id number] Admission Performance, 1. [id number] Admission Performance, 1. [id number] Admission Performance, 1. [id number] Admission Performance , 1. [id number] Admission Performance, 1. [id number] Admission Performance, 1. [id number] Admission Performanc e, 1. [id number] Admission Performance, Q1. Does the patient use a wheelchair/scooter?, 1. [id number] Admis adela Performance, RR1. Indicate the type of wheelchair/scooter used., 1. [id number] Admission Performanc e, Code, SS1. Indicate the type of wheelchair/scooter used., H350. Bladder Continence (3-day assessme nt period), H400. Bowel Continence (3-day assessment period) were [electronically] signed by Kimberly Cordoba C.N.A. on Sat Sep 20 2020 14:37:41 GMT-0500 (Central Daylight Time)
[2020-09-20] MEDS: ENOXAPARIN 40 MG/0.4 ML SQ SCH (16:19)
[2020-09-20] MEDS: ATORVASTATIN 40 MG TAB PO SCH (19:45)
[2020-09-21] MEDS: LEVOTHYROXINE SOD 0.1 MG TAB PO SCH (07:03)
[2020-09-21] MEDS: lisinopriL 20 MG TAB PO SCH (08:00)
[2020-09-21] MEDS: MULTIVITAMIN TAB PO SCH (09:06)
[2020-09-21] MEDS: CRANBERRY FRUIT EXTRACT 200 MG CAP PO SCH ×2 (09:06→19:58)
[2020-09-21] MEDS: CYANOCOBALAMIN 1,000 MCG TAB PO SCH (09:07)
[2020-09-21] MEDS: ASPIRIN EC 81 MG TAB PO SCH (09:07)
[2020-09-21] MEDS: FE SULF/FA/VIT B COMP & C TAB PO SCH (09:07)
[2020-09-21] MEDS: FERROUS SULFATE 325 MG TAB PO SCH (09:07)
[2020-09-21] MEDS: Biotin 5,000 MCG PO SCH (09:10)
[2020-09-21] MEDS: ENOXAPARIN 40 MG/0.4 ML SQ SCH (16:20)
[2020-09-21] MEDS: ACETAMINOPHEN 500 MG TAB PO PRN (19:57)
[2020-09-21] MEDS: ATORVASTATIN 40 MG TAB PO SCH (19:57)
[2020-09-22] MEDS: LEVOTHYROXINE SOD 0.1 MG TAB PO SCH (06:39)
[2020-09-22] MEDS: ACETAMINOPHEN 500 MG TAB PO PRN ×2 (08:23→14:56)
[2020-09-22] MEDS: FE SULF/FA/VIT B COMP & C TAB PO SCH (08:23)
[2020-09-22] MEDS: FERROUS SULFATE 325 MG TAB PO SCH (08:23)
[2020-09-22] MEDS: Biotin 5,000 MCG PO SCH (08:24)
[2020-09-22] MEDS: CYANOCOBALAMIN 1,000 MCG TAB PO SCH (08:25)
[2020-09-22] MEDS: MULTIVITAMIN TAB PO SCH (08:25)
[2020-09-22] MEDS: lisinopriL 20 MG TAB PO SCH (08:25)
[2020-09-22] MEDS: CRANBERRY FRUIT EXTRACT 200 MG CAP PO SCH ×2 (08:25→19:05)
[2020-09-22] MEDS: ASPIRIN EC 81 MG TAB PO SCH (08:25)
[2020-09-22] MEDS: ENOXAPARIN 40 MG/0.4 ML SQ SCH (17:01)
[2020-09-22] MEDS: ATORVASTATIN 40 MG TAB PO SCH (19:05)
[2020-09-22] MEDS: DOCUSATE NA/SENNA CONC 1 TAB PO PRN (19:05)
--- NOTE | 2020-09-22 19:11 | R.PN ---
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 SUBJECTIVE: Pt denied any depression. Pt denied any Shortness of Breath. Hgb 9.4, prealbumin 14.8. Ambulated 500' with rolling walker and standby assistance. Glucose up to 251. However, all other values were normal. Possible error. Will check Hgb A1C VITAL SIGNS Temperature: 98.1 F SBP/DBP: 142/84 Pulse: 75 Resp: 16 MEDICATION ALLERGIES: CODEINE SULFATE ENVIRONMENTAL ALLERGIES: - Substance Allergies None Known - Other Allergies None Known NURSING: - Shower allowing shower - Skin care per protocol PRECAUTIONS: - Weight Bearing Precaution WBAT left LE ACTIVITIES OOB only with supervision THERAPIES: - Dietary and Nutrition Adequate Nutrition. Nutritional Education. Nutritional Supplements. PHYSICAL EXAM - Gen Alert and awake Lying in bed No apparent distress Oriented to: person, time, and place - Skin Left hip incision intact and left leg is wrapped. No numbness - Eyes No abnormalities - ENMT No abnormalities - Neck No abnormalities - CVS RRR - Chest Clear - Abd + bowel sounds - GI Soft Deferred - No abnormalities - Ext Mild left lower extremity edema. - MSK 4+/5 weakness in left lower extremity - Neuro 4/5 strength left lower extremity. - Psych No abnormalities ASSESSMENT: Pt. is a 80 yo Right-handed female of unknown race.She has past medical history significant for DX on MEDIC.On 09/05/2020 she was admitted to [facility] with diagnosis LEFT DISTAL FEMUR FRACTURE. Her impairment category is Orthopaedic Disorders 08 - Femur (Shaft) Fracture (08.2).Pre-morbidly, Pt . was independent/mod-I in Balance, Endurance, Transfers Control, and Locomotion; and she had good Sa fety Awareness and Communication.Currently, she has deficits of Locomotion, Balance, Transfers Contro l, Endurance, and Sphincter Control.Pt. is now referred to [facility] for acut e in-patient rehabilitation in order to maximize patient's functional independence in activities of d aily living, strength, ROM, and mobility.- Rehab Goal Patient has realistic goal of being discharged at assistance level 7-Ind to reside at Home with Fami ly/Relatives. MDM/PLAN: - Physical Therapy Decreased range of motion - to improve, our physical therapists will perform initial evaluation of p t's status upon admission and devise an individualized program for increasing patient's Range of Girish on. Gait dysfunction - to improve, our physical therapists will perform initial evaluation of pt's statu s upon admission and devise an individualized program for Gait Training, and Wheel Chair mobility Inability to transfer - to improve, our physical therapists will perform initial evaluation of pt's status upon admission and devise an individualized program for Bed mobility Need for home safety evaluation - to improve, our physical therapists will perform initial evaluatio n of pt's status upon admission and devise an individualized program for Home Evaluation Need in caregiver upon discharge - to improve, our physical therapists will perform initial evaluati on of pt's status upon admission and devise an individualized program for Caregiver Training New precaution - to improve, our physical therapists will perform initial evaluation of pt's status upon admission and devise an individualized program for Patient precaution education Edema - to improve, our physical therapists will perform initial evaluation of pt's status upon admi ssion and devise an individualized program for Elevation Training, and Lymphedema Therapy Poor balance - to improve, our physical therapists will perform initial evaluation of pt's status up on admission and devise an individualized program for Balance Training Poor endurance - to improve, our physical therapists will perform initial evaluation of pt's status upon admission and devise an individualized program for Endurance Training Weakness - to improve, our physical therapists will perform initial evaluation of pt's status upon a dmission and devise an individualized program for Aquatic Therapy, Neuromuscular Reeducation, and Str engthening Achieving independence - to improve, our physical therapists will perform initial evaluation of pt's status upon admission and devise an individualized program for Community Reintegration Activities - Occupational Therapy Need for clinical care coordinator - to improve, our occupation therapists will perform initial evaluation of pt's status upon admission and devise an individualized program for Caregiver Training Weakness - to improve, our occupation therapists will perform initial evaluation of pt's status upon admission and devise an individualized program for Aquatic Therapy, Balance, Endurance, UE ROM, and UE strengthening - Other See attached MAR (Medication Administration Record) - Diet Type Continue Regular - Diet - Liquid Texture Continue Regular - Tube Feed Continue N/A - Weight Bearing Precaution WBAT left LE - Skin care per protocol - Diet - Solid Texture Continue Regular - Shower allowing shower FUNCTIONAL STATUS: UPDATED AT WEEKLY TEAM CONFERENCE - Bladder Same accident frequency: 7-Ind - No accidents in the past 7 days - Bowel Same accident frequency: 7-Ind - No accidents in the past 7 days - Walking Same score based on distance walked: 0(N/A) Same score based on distance walked: 1(<=50ft) - Wheelchair Same score based on distance traveled: 0(N/A) FUNCTIONAL STATUS: - Self-Care A. Eating Radha B. Grooming Radha C. Bathing modA D. Dressing - Upper Marcelo E. Dressing - Lower modA F. Toileting Marcelo - Sphincter Control G. Bladder control Marcelo H. Bowel control Marcelo - Transfers Control I. Bed/Chair/Wheelchair Marcelo J. Toilet Marcelo K. Tub/Shower modA - Locomotion L. Walk/Wheelchair (B) Marcelo M. Stairs ADNO - Communication N. Comprehension (B) Radha O. Expression (B) Radha - Social Cognition P. Social Interaction sup Q. Problem Solving sup R. Memory sup - Endurance Poor - Balance Fair - Safety Awareness Fair QI SCORES: - Self-Care A. Eating 04-Supervision or touching assistance B. Oral hygiene 03-Partial/moderate assistance C. Toileting hygiene 03-Partial/moderate assistance E. Shower/bathe self 03-Partial/moderate assistance F. Upper body dressing 03-Partial/moderate assistance G. Lower body dressing 03-Partial/moderate assistance H. Putting on/taking off footwear 88-Not attempted due to medical condition or safety concerns - Mobility A. Roll left and right 04-Supervision or touching assistance B. Sit to lying 04-Supervision or touching assistance C. Lying to sitting on side of bed 03-Partial/moderate assistance D. Sit to stand 03-Partial/moderate assistance E. Chair/[id number] transfer 03-Partial/moderate assistance F. Toilet transfer 03-Partial/moderate assistance G. Car transfer 88-Not attempted due to medical condition or safety concerns I. Walk 10 feet 88-Not attempted due to medical condition or safety concerns J. Walk 50 feet with two turns 88-Not attempted due to medical condition or safety concerns K. Walk 150 feet 88-Not attempted due to medical condition or safety concerns L. Walking 10 feet on uneven surfaces 88-Not attempted due to medical condition or safety concerns M. 1 step (curb) 88-Not attempted due to medical condition or safety concerns N. 4 steps 88-Not attempted due to medical condition or safety concerns O. 12 steps 88-Not attempted due to medical condition or safety concerns P. Picking up object 88-Not attempted due to medical condition or safety concerns R. Wheel 50 feet with two turns 88-Not attempted due to medical condition or safety concerns S. Wheel 150 feet 88-Not attempted due to medical condition or safety concerns - Bladder and Bowel Bladder continence Bowel continence - Endurance Fair - Balance Fair - Safety Awareness Fair CURRENT [facility]. DEFICITS: Self-Care, Mobility, Endurance, Balance, and Safety Awareness SIGNATURE PANEL: (CDT)
[2020-09-23] MEDS: LEVOTHYROXINE SOD 0.1 MG TAB PO SCH (06:43)
[2020-09-23] MEDS: Biotin 5,000 MCG PO SCH (08:08)
[2020-09-23] MEDS: CYANOCOBALAMIN 1,000 MCG TAB PO SCH (08:09)
[2020-09-23] MEDS: MULTIVITAMIN TAB PO SCH (08:09)
[2020-09-23] MEDS: ASPIRIN EC 81 MG TAB PO SCH (08:09)
[2020-09-23] MEDS: lisinopriL 20 MG TAB PO SCH (08:09)
[2020-09-23] MEDS: FE SULF/FA/VIT B COMP & C TAB PO SCH (08:09)
[2020-09-23] MEDS: FERROUS SULFATE 325 MG TAB PO SCH (08:10)
[2020-09-23] MEDS: ACETAMINOPHEN 500 MG TAB PO PRN (08:10)
[2020-09-23] MEDS: CRANBERRY FRUIT EXTRACT 200 MG CAP PO SCH ×2 (08:10→19:07)
[2020-09-23] MEDS: ENOXAPARIN 40 MG/0.4 ML SQ SCH (16:19)
[2020-09-23] MEDS: ATORVASTATIN 40 MG TAB PO SCH (19:07)
--- NOTE | 2020-09-23 19:10 | R.PN ---
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 SUBJECTIVE: Pt denied any depression. Pt denied any Shortness of Breath. Hgb 9.4, prealbumin 14.8. Ambulated 400' with rolling walker and standby assistance. Glucose up to 251. However, all other values were normal. Possible error. Hgb A1C is normal at 5.4. H igh glucose is likely an error. VITAL SIGNS Temperature: 97.6 F SBP/DBP: 149/69 Pulse: 66 Resp: 16 MEDICATION ALLERGIES: CODEINE SULFATE ENVIRONMENTAL ALLERGIES: - Substance Allergies None Known - Other Allergies None Known NURSING: - Shower allowing shower - Skin care per protocol PRECAUTIONS: - Weight Bearing Precaution WBAT left LE ACTIVITIES OOB only with supervision THERAPIES: - Dietary and Nutrition Adequate Nutrition. Nutritional Education. Nutritional Supplements. PHYSICAL EXAM - Gen Alert and awake Lying in bed No apparent distress Oriented to: person, time, and place - Skin Left hip incision intact and left leg is wrapped. No numbness - Eyes No abnormalities - ENMT No abnormalities - Neck No abnormalities - CVS RRR - Chest Clear - Abd + bowel sounds - GI Soft Deferred - No abnormalities - Ext Mild left lower extremity edema. - MSK 4+/5 weakness in left lower extremity - Neuro 4/5 strength left lower extremity. - Psych No abnormalities ASSESSMENT: Pt. is a 80 yo Right-handed female of unknown race.She has past medical history significant for DX on MEDIC.On 09/05/2020 she was admitted to [facility] with diagnosis LEFT DISTAL FEMUR FRACTURE. Her impairment category is Orthopaedic Disorders 08 - Femur (Shaft) Fracture (08.2).Pre-morbidly, Pt . was independent/mod-I in Balance, Endurance, Transfers Control, and Locomotion; and she had good Sa fety Awareness and Communication.Currently, she has deficits of Locomotion, Balance, Transfers Contro l, Endurance, and Sphincter Control.Pt. is now referred to [facility] for acut e in-patient rehabilitation in order to maximize patient's functional independence in activities of d aily living, strength, ROM, and mobility.- Rehab Goal Patient has realistic goal of being discharged at assistance level 7-Ind to reside at Home with Fami ly/Relatives. MDM/PLAN: - Physical Therapy Decreased range of motion - to improve, our physical therapists will perform initial evaluation of p t's status upon admission and devise an individualized program for increasing patient's Range of Girish on. Gait dysfunction - to improve, our physical therapists will perform initial evaluation of pt's statu s upon admission and devise an individualized program for Gait Training, and Wheel Chair mobility Inability to transfer - to improve, our physical therapists will perform initial evaluation of pt's status upon admission and devise an individualized program for Bed mobility Need for home safety evaluation - to improve, our physical therapists will perform initial evaluatio n of pt's status upon admission and devise an individualized program for Home Evaluation Need in caregiver upon discharge - to improve, our physical therapists will perform initial evaluati on of pt's status upon admission and devise an individualized program for Caregiver Training New precaution - to improve, our physical therapists will perform initial evaluation of pt's status upon admission and devise an individualized program for Patient precaution education Edema - to improve, our physical therapists will perform initial evaluation of pt's status upon admi ssion and devise an individualized program for Elevation Training, and Lymphedema Therapy Poor balance - to improve, our physical therapists will perform initial evaluation of pt's status up on admission and devise an individualized program for Balance Training Poor endurance - to improve, our physical therapists will perform initial evaluation of pt's status upon admission and devise an individualized program for Endurance Training Weakness - to improve, our physical therapists will perform initial evaluation of pt's status upon a dmission and devise an individualized program for Aquatic Therapy, Neuromuscular Reeducation, and Str engthening Achieving independence - to improve, our physical therapists will perform initial evaluation of pt's status upon admission and devise an individualized program for Community Reintegration Activities - Occupational Therapy Need for managed care analyst - to improve, our occupation therapists will perform initial evaluation of pt's status upon admission and devise an individualized program for Caregiver Training Weakness - to improve, our occupation therapists will perform initial evaluation of pt's status upon admission and devise an individualized program for Aquatic Therapy, Balance, Endurance, UE ROM, and UE strengthening - Other See attached MAR (Medication Administration Record) - Diet Type Continue Regular - Diet - Liquid Texture Continue Regular - Tube Feed Continue N/A - Weight Bearing Precaution WBAT left LE - Skin care per protocol - Diet - Solid Texture Continue Regular - Shower allowing shower FUNCTIONAL STATUS: UPDATED AT WEEKLY TEAM CONFERENCE - Bladder Same accident frequency: 7-Ind - No accidents in the past 7 days - Bowel Same accident frequency: 7-Ind - No accidents in the past 7 days - Walking Same score based on distance walked: 0(N/A) Same score based on distance walked: 1(<=50ft) - Wheelchair Same score based on distance traveled: 0(N/A) FUNCTIONAL STATUS: - Self-Care A. Eating Radha B. Grooming Radha C. Bathing modA D. Dressing - Upper Marcelo E. Dressing - Lower modA F. Toileting Marcelo - Sphincter Control G. Bladder control Marcelo H. Bowel control Marcelo - Transfers Control I. Bed/Chair/Wheelchair Marcelo J. Toilet Marcelo K. Tub/Shower modA - Locomotion L. Walk/Wheelchair (B) Marcelo M. Stairs ADNO - Communication N. Comprehension (B) Radha O. Expression (B) Radha - Social Cognition P. Social Interaction sup Q. Problem Solving sup R. Memory sup - Endurance Poor - Balance Fair - Safety Awareness Fair QI SCORES: - Self-Care A. Eating 04-Supervision or touching assistance B. Oral hygiene 03-Partial/moderate assistance C. Toileting hygiene 03-Partial/moderate assistance E. Shower/bathe self 03-Partial/moderate assistance F. Upper body dressing 03-Partial/moderate assistance G. Lower body dressing 03-Partial/moderate assistance H. Putting on/taking off footwear 88-Not attempted due to medical condition or safety concerns - Mobility A. Roll left and right 04-Supervision or touching assistance B. Sit to lying 04-Supervision or touching assistance C. Lying to sitting on side of bed 03-Partial/moderate assistance D. Sit to stand 03-Partial/moderate assistance E. Chair/[id number] transfer 03-Partial/moderate assistance F. Toilet transfer 03-Partial/moderate assistance G. Car transfer 88-Not attempted due to medical condition or safety concerns I. Walk 10 feet 88-Not attempted due to medical condition or safety concerns J. Walk 50 feet with two turns 88-Not attempted due to medical condition or safety concerns K. Walk 150 feet 88-Not attempted due to medical condition or safety concerns L. Walking 10 feet on uneven surfaces 88-Not attempted due to medical condition or safety concerns M. 1 step (curb) 88-Not attempted due to medical condition or safety concerns N. 4 steps 88-Not attempted due to medical condition or safety concerns O. 12 steps 88-Not attempted due to medical condition or safety concerns P. Picking up object 88-Not attempted due to medical condition or safety concerns R. Wheel 50 feet with two turns 88-Not attempted due to medical condition or safety concerns S. Wheel 150 feet 88-Not attempted due to medical condition or safety concerns - Bladder and Bowel Bladder continence Bowel continence - Endurance Fair - Balance Fair - Safety Awareness Fair CURRENT [facility]. DEFICITS: Self-Care, Mobility, Endurance, Balance, and Safety Awareness SIGNATURE PANEL: (CDT)
[2020-09-24] MEDS: LEVOTHYROXINE SOD 0.1 MG TAB PO SCH (06:43)
[2020-09-24] MEDS: lisinopriL 20 MG TAB PO SCH (08:00)
[2020-09-24] MEDS: Biotin 5,000 MCG PO SCH (08:43)
[2020-09-24] MEDS: CRANBERRY FRUIT EXTRACT 200 MG CAP PO SCH ×2 (08:44→20:02)
[2020-09-24] MEDS: ACETAMINOPHEN 500 MG TAB PO PRN ×2 (08:45→20:02)
[2020-09-24] MEDS: FE SULF/FA/VIT B COMP & C TAB PO SCH (08:45)
[2020-09-24] MEDS: FERROUS SULFATE 325 MG TAB PO SCH (08:46)
[2020-09-24] MEDS: CYANOCOBALAMIN 1,000 MCG TAB PO SCH (08:46)
[2020-09-24] MEDS: ASPIRIN EC 81 MG TAB PO SCH (08:46)
[2020-09-24] MEDS: DRISDOL (VITAMIN D=ERGOCALCIFEROL) 50000 UNIT CAP PO SCH (08:47)
[2020-09-24] MEDS: MULTIVITAMIN TAB PO SCH (09:07)
[2020-09-24] MEDS: ENOXAPARIN 40 MG/0.4 ML SQ SCH (17:04)
--- NOTE | 2020-09-24 17:52 | R.PN ---
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 SUBJECTIVE: Pt denied any depression. Pt denied any Shortness of Breath. Hgb 9.4, prealbumin 14.8. Ambulated 1000' independently with rolling walker. Glucose up to 251. However, all other values were normal. Possible error. Hgb A1C is normal at 5.4. H igh glucose is likely an error. VITAL SIGNS Temperature: 98.0 F SBP/DBP: 110/50 Pulse: 74 Resp: 16 MEDICATION ALLERGIES: CODEINE SULFATE ENVIRONMENTAL ALLERGIES: - Substance Allergies None Known - Other Allergies None Known NURSING: - Shower allowing shower - Skin care per protocol PRECAUTIONS: - Weight Bearing Precaution WBAT left LE ACTIVITIES OOB only with supervision THERAPIES: - Dietary and Nutrition Adequate Nutrition. Nutritional Education. Nutritional Supplements. PHYSICAL EXAM - Gen Alert and awake Lying in bed No apparent distress Oriented to: person, time, and place - Skin Left hip incision intact and left leg is wrapped. No numbness - Eyes No abnormalities - ENMT No abnormalities - Neck No abnormalities - CVS RRR - Chest Clear - Abd + bowel sounds - GI Soft Deferred - No abnormalities - Ext Mild left lower extremity edema. - MSK 4+/5 weakness in left lower extremity - Neuro 4/5 strength left lower extremity. - Psych No abnormalities ASSESSMENT: Pt. is a 80 yo Right-handed female of unknown race.She has past medical history significant for DX on MEDIC.On 09/05/2020 she was admitted to [facility] with diagnosis LEFT DISTAL FEMUR FRACTURE. Her impairment category is Orthopaedic Disorders 08 - Femur (Shaft) Fracture (08.2).Pre-morbidly, Pt . was independent/mod-I in Balance, Endurance, Transfers Control, and Locomotion; and she had good Sa fety Awareness and Communication.Currently, she has deficits of Locomotion, Balance, Transfers Contro l, Endurance, and Sphincter Control.Pt. is now referred to [facility] for acut e in-patient rehabilitation in order to maximize patient's functional independence in activities of d aily living, strength, ROM, and mobility.- Rehab Goal Patient has realistic goal of being discharged at assistance level 7-Ind to reside at Home with Fami ly/Relatives. MDM/PLAN: - Physical Therapy Decreased range of motion - to improve, our physical therapists will perform initial evaluation of p t's status upon admission and devise an individualized program for increasing patient's Range of Girish on. Gait dysfunction - to improve, our physical therapists will perform initial evaluation of pt's statu s upon admission and devise an individualized program for Gait Training, and Wheel Chair mobility Inability to transfer - to improve, our physical therapists will perform initial evaluation of pt's status upon admission and devise an individualized program for Bed mobility Need for home safety evaluation - to improve, our physical therapists will perform initial evaluatio n of pt's status upon admission and devise an individualized program for Home Evaluation Need in caregiver upon discharge - to improve, our physical therapists will perform initial evaluati on of pt's status upon admission and devise an individualized program for Caregiver Training New precaution - to improve, our physical therapists will perform initial evaluation of pt's status upon admission and devise an individualized program for Patient precaution education Edema - to improve, our physical therapists will perform initial evaluation of pt's status upon admi ssion and devise an individualized program for Elevation Training, and Lymphedema Therapy Poor balance - to improve, our physical therapists will perform initial evaluation of pt's status up on admission and devise an individualized program for Balance Training Poor endurance - to improve, our physical therapists will perform initial evaluation of pt's status upon admission and devise an individualized program for Endurance Training Weakness - to improve, our physical therapists will perform initial evaluation of pt's status upon a dmission and devise an individualized program for Aquatic Therapy, Neuromuscular Reeducation, and Str engthening Achieving independence - to improve, our physical therapists will perform initial evaluation of pt's status upon admission and devise an individualized program for Community Reintegration Activities - Occupational Therapy Need for care attendant - to improve, our occupation therapists will perform initial evaluation of pt's status upon admission and devise an individualized program for Caregiver Training Weakness - to improve, our occupation therapists will perform initial evaluation of pt's status upon admission and devise an individualized program for Aquatic Therapy, Balance, Endurance, UE ROM, and UE strengthening - Other See attached MAR (Medication Administration Record) - Diet Type Continue Regular - Diet - Liquid Texture Continue Regular - Tube Feed Continue N/A - Weight Bearing Precaution WBAT left LE - Skin care per protocol - Diet - Solid Texture Continue Regular - Shower allowing shower FUNCTIONAL STATUS: UPDATED AT WEEKLY TEAM CONFERENCE - Bladder Same accident frequency: 7-Ind - No accidents in the past 7 days - Bowel Same accident frequency: 7-Ind - No accidents in the past 7 days - Walking Same score based on distance walked: 0(N/A) Same score based on distance walked: 1(<=50ft) - Wheelchair Same score based on distance traveled: 0(N/A) FUNCTIONAL STATUS: - Self-Care A. Eating Radha B. Grooming Radha C. Bathing modA D. Dressing - Upper Marcelo E. Dressing - Lower modA F. Toileting Marcelo - Sphincter Control G. Bladder control Marcelo H. Bowel control Marcelo - Transfers Control I. Bed/Chair/Wheelchair Marcelo J. Toilet Marcelo K. Tub/Shower modA - Locomotion L. Walk/Wheelchair (B) Marcelo M. Stairs ADNO - Communication N. Comprehension (B) Radha O. Expression (B) Radha - Social Cognition P. Social Interaction sup Q. Problem Solving sup R. Memory sup - Endurance Poor - Balance Fair - Safety Awareness Fair QI SCORES: - Self-Care A. Eating 04-Supervision or touching assistance B. Oral hygiene 03-Partial/moderate assistance C. Toileting hygiene 03-Partial/moderate assistance E. Shower/bathe self 03-Partial/moderate assistance F. Upper body dressing 03-Partial/moderate assistance G. Lower body dressing 03-Partial/moderate assistance H. Putting on/taking off footwear 88-Not attempted due to medical condition or safety concerns - Mobility A. Roll left and right 04-Supervision or touching assistance B. Sit to lying 04-Supervision or touching assistance C. Lying to sitting on side of bed 03-Partial/moderate assistance D. Sit to stand 03-Partial/moderate assistance E. Chair/[id number]-js-mixgp transfer 03-Partial/moderate assistance F. Toilet transfer 03-Partial/moderate assistance G. Car transfer 88-Not attempted due to medical condition or safety concerns I. Walk 10 feet 88-Not attempted due to medical condition or safety concerns J. Walk 50 feet with two turns 88-Not attempted due to medical condition or safety concerns K. Walk 150 feet 88-Not attempted due to medical condition or safety concerns L. Walking 10 feet on uneven surfaces 88-Not attempted due to medical condition or safety concerns M. 1 step (curb) 88-Not attempted due to medical condition or safety concerns N. 4 steps 88-Not attempted due to medical condition or safety concerns O. 12 steps 88-Not attempted due to medical condition or safety concerns P. Picking up object 88-Not attempted due to medical condition or safety concerns R. Wheel 50 feet with two turns 88-Not attempted due to medical condition or safety concerns S. Wheel 150 feet 88-Not attempted due to medical condition or safety concerns - Bladder and Bowel Bladder continence Bowel continence - Endurance Fair - Balance Fair - Safety Awareness Fair CURRENT [facility]. DEFICITS: Self-Care, Mobility, Endurance, Balance, and Safety Awareness SIGNATURE PANEL: (CDT)
[2020-09-24] MEDS: DOCUSATE NA/SENNA CONC 1 TAB PO PRN (20:01)
[2020-09-24] MEDS: ATORVASTATIN 40 MG TAB PO SCH (20:02)
[2020-09-25 06:30] LABS: Absolute Lymphocytes (CBC) 1.5 K/uL (0.7-4.9); Basophils % 1.1 % (0-1.3); Hematocrit 26.6 % (36.0-45.0); Lymphocytes % 25.3 % (15.3-44.8); MPV 9.2 fL (7.6-11.3); RBC Red Blood Cell Count 2.65 M/uL (3.86-4.86)
[2020-09-25 06:42] LABS: Albumin 2.4 g/dL (3.4-5.0); BUN Blood Urea Nitrogen 22 mg/dL (7-18); Bicarbonate 30 mmol/L (21-32); Glucose Level 80 mg/dL (74-106); Magnesium 2.5 mg/dL (1.8-2.4); Potassium 4.3 mmol/L (3.5-5.1); Prealbumin 12.7 mg/dL (20-40); Sodium Level 143 mmol/L (136-145)
[2020-09-25] MEDS: LEVOTHYROXINE SOD 0.1 MG TAB PO SCH (06:49)
[2020-09-25] MEDS: lisinopriL 20 MG TAB PO SCH (08:00)
[2020-09-25] MEDS: Biotin 5,000 MCG PO SCH (08:32)
[2020-09-25] MEDS: CRANBERRY FRUIT EXTRACT 200 MG CAP PO SCH ×2 (08:32→19:01)
[2020-09-25] MEDS: FE SULF/FA/VIT B COMP & C TAB PO SCH (08:33)
[2020-09-25] MEDS: FERROUS SULFATE 325 MG TAB PO SCH (08:33)
[2020-09-25] MEDS: CYANOCOBALAMIN 1,000 MCG TAB PO SCH (08:33)
[2020-09-25] MEDS: MULTIVITAMIN TAB PO SCH (08:33)
[2020-09-25] MEDS: ASPIRIN EC 81 MG TAB PO SCH (08:33)
[2020-09-25] MEDS: ACETAMINOPHEN 500 MG TAB PO PRN ×2 (08:34→19:00)
[2020-09-25 09:41] LABS: Blood Morphology Comment NOTED (NOT SEEN); Platelet Estimate ADEQ; White Blood Cell Scan OK (OK)
[2020-09-25 09:42] LABS: Anisocytosis 1+
[2020-09-25] MEDS: ENOXAPARIN 40 MG/0.4 ML SQ SCH (16:35)
[2020-09-25] MEDS: ATORVASTATIN 40 MG TAB PO SCH (19:01)
[2020-09-26] MEDS: LEVOTHYROXINE SOD 0.1 MG TAB PO SCH (06:59)
[2020-09-26] MEDS: lisinopriL 20 MG TAB PO SCH (08:04)
[2020-09-26] MEDS: CRANBERRY FRUIT EXTRACT 200 MG CAP PO SCH (08:04)
[2020-09-26] MEDS: Biotin 5,000 MCG PO SCH (08:04)
[2020-09-26] MEDS: ASPIRIN EC 81 MG TAB PO SCH (08:05)
[2020-09-26] MEDS: CYANOCOBALAMIN 1,000 MCG TAB PO SCH (08:05)
[2020-09-26] MEDS: FE SULF/FA/VIT B COMP & C TAB PO SCH (08:05)
[2020-09-26] MEDS: ACETAMINOPHEN 500 MG TAB PO PRN (08:05)
[2020-09-26] MEDS: FERROUS SULFATE 325 MG TAB PO SCH (08:05)
[2020-09-26] MEDS: MULTIVITAMIN TAB PO SCH (08:05)
[2020-09-26 08:06] VITALS: BP 124/60
[2020-09-26 09:24] VITALS: TEMP 97.9
--- NOTE | 2020-09-26 10:14 | P.RH.PN ---
Estimated Length of Stay: 18 Expected Discharge Date: 09/26/20 Discharge Disposition Plan: Home Family Support: Yes Senior Care Goal: Mobility, Transfers, Self Care Vital Signs: Last Vital Signs Temp 97.9 F 09/26/20 08:00 Pulse 63 09/26/20 08:04 Resp 16 09/26/20 08:00 BP 124/60 09/26/20 08:04 Pulse Ox 97 09/26/20 08:00 Laboratory: Laboratory Last Values WBC 5.80 K/uL (4.3-10.9) D 09/25/20 06:07 RBC 2.65 M/uL (3.86-4.86) L 09/25/20 06:07 Hgb 8.8 g/dL (12.0-15.0) L 09/25/20 06:07 Hct 26.6 % (36.0-45.0) L 09/25/20 06:07 MCV 100.5 fL (80-100) H 09/25/20 06:07 MCH 33.2 pg (27.0-35.0) 09/25/20 06:07 MCHC 33.0 g/dL (32.0-36.0) 09/25/20 06:07 RDW 21.1 % (12.1-15.2) H 09/25/20 06:07 Plt Count 353 K/uL (152-406) D 09/25/20 06:07 MPV 9.2 fL (7.6-11.3) 09/25/20 06:07 Neutrophils % 59.2 % (41.7-73.7) 09/25/20 06:07 Lymphocytes % 25.3 % (15.3-44.8) 09/25/20 06:07 Monocytes % 7.8 % (3.3-12.3) 09/25/20 06:07 Eosinophils % 6.6 % (0-4.4) H 09/25/20 06:07 Basophils % 1.1 % (0-1.3) 09/25/20 06:07 Absolute Neutrophils 3.4 K/uL (1.8-8.0) 09/25/20 06:07 Absolute Lymphocytes 1.5 K/uL (0.7-4.9) 09/25/20 06:07 Absolute Monocytes 0.5 K/uL (0.1-1.3) 09/25/20 06:07 Absolute Eosinophils 0.4 K/uL (0-0.5) 09/25/20 06:07 Absolute Basophils 0.1 K/uL (0-0.5) 09/25/20 06:07 Platelet Estimate Adeq 09/25/20 06:07 Anisocytosis 1+ 09/25/20 06:07 Morphology Comment Noted (NOT SEEN) 09/25/20 06:07 Sodium 143 mmol/L (136-145) 09/25/20 06:07 Potassium 4.3 mmol/L (3.5-5.1) 09/25/20 06:07 Chloride 109 mmol/L (98-107) H 09/25/20 06:07 Carbon Dioxide 30 mmol/L (21-32) 09/25/20 06:07 BUN 22 mg/dL (7-18) H 09/25/20 06:07 Creatinine 0.49 mg/dL (0.55-1.3) L 09/25/20 06:07 Estimated GFR > 90 mL/min (=/>90) 09/25/20 06:07 Glucose 80 mg/dL (74-106) 09/25/20 06:07 POC Glucose 251 mg/dL (65-120) H 09/22/20 07:39 Hemoglobin A1c 5.4 % (4.2-6.3) 09/22/20 19:34 Calcium 8.1 mg/dL (8.5-10.1) L 09/25/20 06:07 Magnesium 2.5 mg/dL (1.8-2.4) H 09/25/20 06:07 Albumin 2.4 g/dL (3.4-5.0) L 09/25/20 06:07 Prealbumin 12.7 mg/dL (20-40) L 09/25/20 06:07 Urine Color Yellow 09/12/20 10:05 Urine Appearance Clear 09/12/20 10:05 Urine pH 5.5 (5.0-7.0) 09/12/20 10:05 Ur Specific [place] 1.010 (1.005-1.030) 09/12/20 10:05 Glucose (UA)(Auto) Negative (NEG) 09/12/20 10:05 Urine Ketones Negative (NEG) 09/12/20 10:05 Urine Blood Negative (NEG) 09/12/20 10:05 Urine Nitrite Negative (NEG) 09/12/20 10:05 Urine Bilirubin Negative (NEG) 09/12/20 10:05 Urine Urobilinogen 0.2 mg/dL (0.2-1.0) 09/12/20 10:05 Ur Leukocyte Esterase Trace (NEG) H 09/12/20 10:05 Urine RBC <5 /HPF (NONE SEEN) 09/12/20 10:05 Urine WBC <5 /HPF (<5) 09/12/20 10:05 Ur Squamous Epith Cells <5 /HPF (NONE SEEN) 09/12/20 10:05 Ur Urothelial Cells <5 /HPF (NONE SEEN) 09/12/20 10:05 Urine Bacteria <20 /HPF (<20) 09/12/20 10:05 Urine Culture Reflexed Not needed 09/12/20 10:05 Urine Total Protein Negative (NEG) 09/12/20 10:05 SARS-CoV-2 RNA (RT-PCR) Positive (NEGATIVE) A 09/09/20 23:25 Smear Scan Ok (OK) 09/25/20 06:07 ABO/Rh O POSITIVE 09/10/20 09:25 Solid Phase Ab Screen Negative 09/10/20 09:25 Crossmatch See Detail 09/10/20 09:25 Weight: 183 lb Wound Present: No Closed Surgical Incision Present: Yes Negative Pressure Wound Therapy Present: No Physician Update: She is doing very well all therapy and will be discharged home today. Hgb decreased to 8.8 from 9.4, 6 days ago. Will have her home health to draw blood on Tuesday and send results to PCP. Functional Improvement: Patient has met all short-term and long-term goals at this time, w/ the exception of a car transfer, due to unavailablity. Patient presents w/ good technique and overall safety awareness. Summary: Patient's care plan and mcfp goals have been reviewed and revised as necessary. Please see the Rehabilitation Signature page for all necessary signatures.
--- NOTE | 2020-10-03 18:20 | R.DS ---
DISCHARGE SUMMARY FACILITY [facility] MR# [id number] NAME ENZO BRIDGES ADDRESS [facility] [place] [address] [address] [id number] PHONE DATE OF 1940 AGE 80 SSN# [id number] GENDER Female DEXTERITY Right-handed MARITAL STATUS RACE Unknown race ENCOUNTER PHYSICIAN Dr. Lloyd Dupont M.D. REFERRING DOCTOR SHEEBA MTZ MD REFERRING FACILITY [facility] DISCHARGE DIAGNOSIS: - Orthopaedic Disorders 08 - Femur (Shaft) Fracture (08.2) LEFT DISTAL FEMUR FRACTURE. DATE OF ADMISSION 09/09/2020 19:10 (RIPRAP MAN) MEDICATION ALLERGIES: CODEINE SULFATE ENVIRONMENTAL ALLERGIES: - Substance Allergies None Known - Other Allergies None Known DISCHARGE MEDICATIONS: Other- ContinueSee attached MAR (Medication Administration Record). NURSING: - Shower allowing shower - Skin care per protocol PRECAUTIONS: - Weight Bearing Precaution WBAT left LE ACTIVITIES OOB only with supervision THERAPIES: - Dietary and Nutrition Adequate Nutrition Nutritional Education Nutritional Supplements HISTORY OF PRESENT ILLNESS: Pt. is a 80 yo Right-handed female of unknown race.She has past medical history significant for DX on MEDIC.On 09/05/2020 she was admitted to [facility] with diagnosis LEFT DISTAL FEMUR FRACTURE. Her impairment category is Orthopaedic Disorders 08 - Femur (Shaft) Fracture (08.2).Pre-morbidly, Pt . was independent/mod-I in Balance, Endurance, Transfers Control, and Locomotion; and she had good Sa fety Awareness and Communication.Currently, she has deficits of Locomotion, Balance, Transfers Contro l, Endurance, and Sphincter Control.Pt. is now referred to [facility] for acut e in-patient rehabilitation in order to maximize patient's functional independence in activities of d aily living, strength, ROM, and mobility.- Rehab Goal Patient has realistic goal of being discharged at assistance level 7-Ind to reside at Home with Fami ly/Relatives. Ms. Bridges is a 80 year -old female that lives indepently at home with her in a single story house. She ambulates with a cane. She has a history of hypertension, hyperlipidemia, rheumatoid arthritis presenting with mechanical fall having sustained a left distal femur fracture. She fell while pushing her husand in a wheel chair. Her procedure performed was left knee revision total arthopasty, on 09/06/20. The patient would most defi nitely benefit from acute inpatient patient to come to acute inpatient rehab for approximately 7-10 days in order to return to her prior level of care. She is now being transferred to [facility] rehabilitation and is medically stable with relatively stable labs. She is now medically stable but in need of 24 hour nursing, doctor supervision and oversight while receiving active and ongoing intensive (PT, OT therapy a day/15 hours per week and receive care with intensive interdisciplinary approach. COVID-19 screening performed; spoke with patient via phone. Patient denies new onset of fever, cough, difficulty breathing, sore throat, body aches and non-allergy nasal congestion in the past 24 hours. Patient denies travel outside of [place] in the past 14 days. Patient denies any contact with someone who has a confirmed diagnosis of or is under investigation for COVID-19 in the past 14 days. Patient has been tested negative for COVID- 19.HOSPITAL COURSE: DIET - LIQUID TEXTURE: On 09/09/2020 Pt was upgraded to Regular Diet - Liquid Texture. DIET - SOLID TEXTURE: On 09/09/2020 Pt was upgraded to Regular Diet - Solid Texture. DIET TYPE: On 09/09/2020 Pt was upgraded to Regular Diet Type. TUBE FEED: On 09/09/2020 Pt was changed to N/A Tube Feed. WEIGHT BEARING PRECAUTION: On 09/09/2020 the following precautions were added for the patient: Weight Bearing Precaution - WBAT left LE. On 09/10/2020 the following precautions were added for the patient: Weight Bearing Precaution - WBAT left LE. On 09/11/2020 the following precautions were removed for the patient: Weight Bearing Precaution - WB AT left LE. On 09/15/2020 the following precautions were added for the patient: Weight Bearing Precaution - WBAT left LE. DISCHARGE PHYSICAL EXAM - Gen Alert and awake Lying in bed No apparent distress Oriented to: person, time, and place - Skin Left hip incision intact and left leg is wrapped. No numbness - Eyes No abnormalities - ENMT No abnormalities - Neck No abnormalities - CVS RRR - Chest Clear - Abd + bowel sounds - GI Soft Deferred - No abnormalities - Ext Mild left lower extremity edema. - MSK 4+/5 weakness in left lower extremity - Neuro 4/5 strength left lower extremity. - Psych No abnormalities FUNCTIONAL STATUS: - Self-Care A. Eating 6-Radha B. Grooming 6-Radha C. Bathing 6-Radah D. Dressing - Upper 6-Radha E. Dressing - Lower 6-Radha F. Toileting 6-Radha - Sphincter Control G. Bladder control 6-Radha H. Bowel control 6-Radha - Transfers Control I. Bed/Chair/Wheelchair 6-Radha J. Toilet 6-Radha K. Tub/Shower 6-Radha - Locomotion L. Walk/Wheelchair (B) 6-Radha M. Stairs 5-sup - Communication N. Comprehension (B) 6-Radha O. Expression (B) 6-Radha - Social Cognition P. Social Interaction 6-Radha Q. Problem Solving 6-Radha R. Memory 6-Radha - Endurance Fair - Balance Fair - Safety Awareness Fair QI SCORES: - Self-Care A. Eating 04-Supervision or touching assistance B. Oral hygiene 03-Partial/moderate assistance C. Toileting hygiene 03-Partial/moderate assistance E. Shower/bathe self 03-Partial/moderate assistance F. Upper body dressing 03-Partial/moderate assistance G. Lower body dressing 03-Partial/moderate assistance H. Putting on/taking off footwear 88-Not attempted due to medical condition or safety concerns - Mobility A. Roll left and right 04-Supervision or touching assistance B. Sit to lying 04-Supervision or touching assistance C. Lying to sitting on side of bed 03-Partial/moderate assistance D. Sit to stand 03-Partial/moderate assistance E. Chair/oqi-vs-idojn transfer 03-Partial/moderate assistance F. Toilet transfer 03-Partial/moderate assistance G. Car transfer 88-Not attempted due to medical condition or safety concerns I. Walk 10 feet 88-Not attempted due to medical condition or safety concerns J. Walk 50 feet with two turns 88-Not attempted due to medical condition or safety concerns K. Walk 150 feet 88-Not attempted due to medical condition or safety concerns L. Walking 10 feet on uneven surfaces 88-Not attempted due to medical condition or safety concerns M. 1 step (curb) 88-Not attempted due to medical condition or safety concerns N. 4 steps 88-Not attempted due to medical condition or safety concerns O. 12 steps 88-Not attempted due to medical condition or safety concerns P. Picking up object 88-Not attempted due to medical condition or safety concerns R. Wheel 50 feet with two turns 88-Not attempted due to medical condition or safety concerns S. Wheel 150 feet 88-Not attempted due to medical condition or safety concerns - Bladder and Bowel Bladder continence Bowel continence - Endurance Fair - Balance Fair - Safety Awareness Fair DISCHARGE INSTRUCTIONS: - N/A Lovenox 30 mg sq twice daily. DISCHARGE PLAN, FOLLOW UP CARE PROVISIONS: - Estimated Length of Stay (days) 14. - Consensus on plan Discharge plan has been discussed with primary caregiver. Patient/Family is in agreement with the cindy n. Primary caregiver is in agreement with the plan. - Patient/Family Goals Return home independently. - Planned Living Setting Upon Discharge Home, to live with Family/Relatives. Transitional Living. SIGNATURE PANEL: (CDT)
== END 2020-09-26 13:30 | disposition home health service (06) | DRG 561 ==
LOC: 5TH 19:32
PROVIDERS: ADMIT Psychiatry & Neurology Neurology with Special Qualifications in Child Neurology; ATTEND Psychiatry & Neurology Neurology with Special Qualifications in Child Neurology
PROC: 30233N1 Transfusion of Nonautologous Red Blood Cells into Peripheral Vein, Percutaneous Approach (ICD-10-PCS; principal; 2020-09-10)
DX: S72.402D Unspecified fracture of lower end of left femur, subsequent encounter for closed fracture with routine healing (principal); I10 Essential (primary) hypertension; E78.5 Hyperlipidemia, unspecified; M19.90 Unspecified osteoarthritis, unspecified site; Z88.5 Allergy status to narcotic agent; Z86.16 Personal history of COVID-19
CPT/HCPCS: 36415; 36430; 80048; 81001; 82040; 82274; 82947; 83036; 83735; 84134; 85014; 85018; 85025; 86850; 86900; 86901; 87086; 87088; 97110; 97112; 97116; 97161; 97530; J1650; J7050; P9016; U0002; U0003

== ENCOUNTER 2023-07-16 14:06 | Inpatient (IN) | payer OTHER ==
--- OUTSIDE RECORDS SUMMARY | 2023-07-20 15:10 | XMS REPORT | Clinical Summary ---
Author Name Unknown Organization [facility] Address [address] [place] [address] Care Team Providers Care Bindery Manager Name Role Phone Unavailable Primary Care Provider Unavailabl e Allergies Active Allergy Reactions Criticality Noted Date Comments Vane Arizmendi 09/04/2020 Medications Medication Sig Dispensed Refills Start Date End Date Status aspirin 81 mg EC tablet Take 81 mg by mouth daily. 0 Active meloxicam (MOBIC) 15 mg tablet Take 15 mg by mouth daily. 0 Active levothyroxine (SYNTHROID, LEVOTHROID) 100 mcg tablet Take 100 mcg by mouth daily. 0 Active lisinopril (PRINIVIL,ZESTRIL) 40 mg tablet Take 40 mg by mouth every morning. 0 Active atorvastatin (LIPITOR) 40 mg tablet Take 40 mg by mouth daily. 0 Active Active Problems Patient Care Coordination No te Formatting of this note migh t be different from the original. The following people are approved to obtain medical information about the patient via phone: Contact #1: Name: Mallorie (daughter) Contact #2: Name: Phone Number: Contact #3: Name: Phone Number: Contact #4: Name: Phone Number: No additional problems on file Social History Tobacco Use Types Packs/Day Years Used Date Smoking Tobacco: Never Assessed Sex and Gender Information Value Date Recorded Sex Assigned at Not on file Gender Identity Not on file Sexual Orientation Not on file Job Start Date Occupation Industry Not on file Not on file Not on file Plan of Treatment Health Maintenance Due Date Last Done Comments COVID-19 Vaccination (#1) 1940
[2023-07-20] MEDS ORDERED: POLYETHYL GLY 3350 17 GM/DOSE PO PRN (15:23)
[2023-07-20 16:06] VITALS: BMI 36.8
[2023-07-20] MEDS: INFLUENZA VACCINE (for 6+ mo) 0.5 ML DOSE IMVAC ONE (17:14)
[2023-07-20 18:51] LABS: Specific Gravity 1.029 (1.005-1.030); Urine Bacteria <20 /HPF (<20); Urine Bilirubin NEGATIVE (Negative); Urine Blood Negative (Negative); Urine Clarity Turbid (Clear); Urine Color Yellow (Yellow); Urine Crystals Unidentified Few /HPF (None Seen); Urine Glucose NEGATIVE (Negative); Urine Protein TRACE (Negative); Urine Urobilinogen 2+ (Normal); Urine pH 6.5 (5.0-7.0)
[2023-07-20] MEDS: AMOX/K CLAV 875 MG TAB PO SCH (19:25)
[2023-07-20] MEDS: ATORVASTATIN 40 MG TAB PO SCH (19:25)
[2023-07-20] MEDS: GABAPENTIN 100 MG CAP PO SCH (19:25)
[2023-07-21] MEDS: LEVOTHYROXINE SOD 0.112 MG TAB PO SCH (05:44)
[2023-07-21 07:40] LABS: Absolute Lymphocytes (CBC) 1.3 K/uL (0.7-4.9); Hematocrit 28.9 % (36.0-45.0); MCV 95.4 fL (80-100); MPV 9.7 fL (7.6-11.3); Platelets 330 thou/uL (152-406); RBC Red Blood Cell Count 3.03 M/uL (3.86-4.86)
[2023-07-21 08:02] LABS: Albumin 2.3 g/dL (3.4-5.0); Magnesium 2.3 mg/dL (1.6-2.4); Potassium 4.1 mEq/L (3.5-5.1); Prealbumin 6.3 mg/dL (20-40)
[2023-07-21] MEDS: PANTOPRAZOLE 40MG TABLET PO SCH (08:25)
[2023-07-21] MEDS: TRAMADOL HCL 50 MG TAB PO PRN (09:48)
[2023-07-21] MEDS ORDERED: LOPERAMIDE HCL 2 MG CAPSULE PO PRN (13:24)
--- NOTE | 2023-07-21 14:20 | RAD REPORT ---
EXAM DESCRIPTION: Chanell Single View07/21/2023 1:18 pm CLINICAL HISTORY: Aspiration COMPARISON: 2018 FINDINGS: Mild right basilar lung opacities Additional mild bilateral interstitial lung opacities appear chronic The heart is mildly enlarged IMPRESSION: Mild right basilar opacities may indicate aspiration pneumonitis
[2023-07-21] MEDS: ENSURE ENLIVE 237 ML CAN PO SCH (14:59)
[2023-07-21] MEDS: APIXABAN 2.5 MG TABLET PO SCH (19:28)
[2023-07-21] MEDS: QUETIAPINE 25 MG TAB PO PRN (19:28)
--- NOTE | 2023-07-21 23:39 | HP ---
Date of Admission: 07/20/2023 Time Of Service: 1 p.m. Chief Complaint: "I fell and broke my hip. Talk to my daughter, I want to sleep." History Of Present Illness: Ms. Bridges is an 83-year-old patient with history of breast cancer with plans for right mastectomy, at home when she fell 2 days prior to the planned surgery. She slipped a nd fell, and impacted her right hip. She had dizziness, but no loss of consciousness. She was previ ously at inpatient rehabilitation for lumbar compression fracture and had a back brace in place, and actually did well when she left. She also had lymphedema and was treated by a wrap. She had surgery for the intertrochanteric femur fracture on July 12, and following surgery was put on a weightbe aring as tolerated status to the right lower extremity. Postoperative course complicated by signific ant hypotension, which was treated in the ICU with pressors, IV fluids. In addition, she had signifi cant anemia, requiring 2 units of packed red blood cells and 2 units of fresh frozen plasma for low p latelets. Her blood pressures did become hemodynamically stable in the surgical ICU. She had an NG tube placed temporarily, and she self-extubated and NG tube was removed. She was upgraded to minced and moist food. It is noted that while in hospital prior to coming to the rehab unit, she reportedly lost her dentures. She had some signs of confusion following surgery, but was able to be alert and oriented to person, place, situation. Blood pressures were supported with midodrine and her lisinopr il was held. She did have levothyroxine for hypothyroidism and was on Lovenox for DVT prophylaxis. Her total protein albumin was low. Hemoglobin low at 7.3. BUN somewhat slightly elevated at 38. Du e to her back issues, she was required to have a brace, but no TLSO was required to get out of bed. She did have a Morris catheter in place and will be working on trying to remove the Morris catheter wit h bladder training. As a result of her complicated medical course and recent surgery for hip fractur e, she is determined to be an appropriate candidate for inpatient rehabilitation for physical, occupa tional, and speech therapy along with medical management. Past Medical History: Arthritis, hypertension, hypothyroidism, right breast cancer, L4 traumatic com pression fracture along with the intertrochanteric fracture on the right, status post intramedullary deana fixation. Allergies: CODEINE. Medications: Eliquis 2.5 mg twice daily, Lipitor 40 mg at bedtime. She is completing Augmentin 875/ 125 twice daily from the to . She is now having Medihoney. She has multiple areas of skin breakdown and wounds. The wound actually in the hip has good hemostasis. The wound care service is following her multiple wounds and she has Medihoney applied as well as protective barrier. She is on gabapentin 100 mg twice daily, Synthroid 0.112 mg daily, Imodium 2 mg every 4 hours, Ensure Enlive 2 37 mL 3 times daily, Zofran 4 mg every 4 hours. It is noted that earlier today she had some vomiting , and the Zofran is helping. In addition, she had 3 loose stools and has Imodium for that. She has Seroquel as needed for agitation, Protonix for GE reflux. Senokot S will be held. If she has consti pation, it will be given. Tramadol 50 mg every 6 hours for managing her pain. Laboratory Studies: Her white blood cell count 7.8, hemoglobin 7.4, hematocrit 21.8, platelets 95. Sodium 141, potassium 4.0, glucose 79, BUN 35, creatinine 0.47. Calcium 7.8, magnesium 2.3, albumin 2.2. X-ray And Imaging: She has had multiple studies done. Chest, 1 view, x-ray on July 13, showed a right IJ central venous catheter at the cavoatrial junction. There were stable cardiomediastinal s ilhouette with prominent left-sided epicardial fat pad. She did have a chest CT scan on s howing no pulmonary embolus. There was no presence of strain in the right heart. There was a large right breast mass with prominent right axillary lymph nodes concerning for the primary malignancy and that is why she was scheduled for mastectomy. The surgeons currently in our unit will be evaluating the patient. In addition, on 07/12/2023 imaging study, this is an MRI of the entire spine with and without contrast, showed an acute L4 burst fracture with approximately 60% loss of height associated with marrow edema. There is mild retropulsion. The fracture deformity mildly displaces the anterior and posterior longitudinal ligaments. Also, acute T7 wedge compression deformity with approximately 30% loss of height associated with marrow edema. There is also severe disk canal stenosis and cord compression in the cervical region, most severe at C6-C7. It is noted that evaluation of the cord wa s limited due to severe degree of mass effect on the cord. The L3-L4 region is concerning for compre ssion of the cauda equina. Family History: Noncontributory. Social History: The patient lives at home. Lives with family. No alcohol, tobacco, or IV drug use. Review of Systems: Reports nausea, vomiting, back pain, right breast pain, heel pain and dependent areas in the sacral r egion with some pain also noted there. Also reported being tired, fatigued, and wanted to sleep befo re doing further therapy. Otherwise, mood appears depressed. Current Level Of Functioning: For eating, supervision. Oral hygiene, supervision. Dependent for to ilet hygiene. Bathing, dependent. Upper body dressing, moderate assistance required. Lower body dr barcenas, dependent. Donning and doffing footwear, she is dependent. For rolling right to left and le ft to right, maximal assistance. [id number], dependent. Transfer from chair to bed to toilet, all dependent. Ambulation 0 feet. Stairs, no steps. Medical And Rehabilitation Assessment And Plan: Ms. Bridges is admitted to the inpatient rehabilitati on unit with impairment category 07, orthopedic, lower extremity fracture. Her impairment group code is 08.11, status post unilateral hip fracture. Her etiologic diagnosis is right femoral intertrocha nteric fracture. Her comorbidities are decrease in mobility, decrease in physical functioning, dysli pidemia, hypertension, hypothyroidism, postoperative anemia, dysphagia, areas of decubital ulcer, swetha ast cancer with right breast mass, lymphedema, L4 burst fracture, elevated BUN, and malnutrition with moderately low protein making moderate malnutrition. Noted she has significant risks of worsening c omplications, including heart attack, stroke, pulmonary embolus, peripheral arterial disease related to potentially even having gangrene of the limb depending on if there are arterial obstructions and s he is on anticoagulation with Eliquis for this. She has decreased p.o. intake with significant risk of worsening malnutrition. She has depression, anxiety, and may have outbursts of behavioral issues. It is noted that one of the nurses actually received a few scratches from the patient as she was mo ving the patient, and she does have Seroquel as needed for that. She will have lymphedema wraps in p lace as well. Plan: 1.She will have physical, occupational, and speech therapy for 3.5 hours, 5 of 7 days. 2.Tramadol 50 mg every 6 hours for pain. We will hold Senokot-S to minimize the potential for loose stools. Will have Imodium 2 mg every 2 hours as needed for constipation. Again, Seroquel 25 mg natasha ly for any behavioral issues and for sedation. Protonix 40 mg daily for GE reflux, and Synthroid 0.1 12 mg daily for hypothyroidism. We will use gabapentin 100 mg twice daily for neuropathic pain. Med ihoney for her multiple wounds, including heel and breast wounds and decubital ulcers in the buttock region. Lipitor 40 mg at bedtime, Eliquis 2.5 mg twice a day for DVT prophylaxis, and continue Augme ntin for current infection. Comorbidities Impacting Rehabilitation: Currently, the patient is to receive 2 units of fresh frozen plasma and packed red blood cells for severe anemia. We will be monitoring the potential for anothe r course of transfusions if need be. In addition, low protein will be managed by addressing protein intake by protein supplementation. Note, her low blood hemoglobin will be addressed by HemocytePlus, ferrous sulfate, and vitamin C. 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 Ms. Bridges and her daughter in the room. They have good understanding of the process of admission to the inpatient rehabilitation facility and the potential benefit of physical, occupational, and speec h therapy. In addition, she will have 24 hours a day penitentiary, daily physician evaluation and management, and will have Sourcing Coordinator and Case Management for discharge planning determining blake e equipment needs and addressing those. In addition to continuing therapy on discharge depending on the level of functioning, which she has achieved at the end of her stay in rehabilitation. If need b e, additional help will be sought from the Cardiology Service, Pulmonary Service, Infectious Disease Service, and Orthopedic Service. Given Ms. Bridges's complex medical condition and risk of further complications, rehabilitation cannot be safely or effectively performed at a lower level facility such as penitentiary. Barriers To Discharge: Given the risk of her worsening significantly and falling, and the comorbid b reast cancer and the need for surgery, she may have to go directly to surgery at some point, although she has recently had surgery and the plan for her coming to the unit was to do rehabilitation for at least two or so weeks, and then potentially having breast cancer surgery with mastectomy as planned. We will have the surgical service locally evaluate the patient to make a determination. Estimated Length Of Stay: About 14 days. Disposition: At this point home with family and follow up with physicians, including orthopedic surg adelaida, General Surgery, Oncology, and primary care physician. Prognosis: Fair. Rehab Facility Goals: 1.Become independent with upper and lower body dressing, toileting, showering, donning and doffing o f shoes. 2.Independently ambulate 250 feet with a rolling walker with weightbearing as tolerated status. 3.Independently propel a wheelchair 250 feet. 4.Independently go up and down 10 steps while holding onto bilateral hand rails. 5.Independently perform cognitive functioning for safety awareness, medication management, and addre ssing all of her medical conditions. The above goals were reviewed with Ms. Bridges's daughter and she is in agreement. By signing this document, I acknowledge I have personally performed a full physical examination on Ms Harshad Bridges no later than 24 hours after her admission to the inpatient rehabilitation facility and dete rmined that she is able to tolerate the above course of treatment at an intensive level for a reasona ble period of time. A detailed individualized plan of care for her will be completed by hospital day 4 based on the preadmission screen, history and physical, and therapy evaluations. JENAE Voice ID: [id number]
[2023-07-22] MEDS: MEDIHONEY 44 ML TOPICAL TUBE TOP SCH (08:53)
[2023-07-22] MEDS: FERROUS SULFATE 325 MG TAB PO SCH (12:48)
[2023-07-22] MEDS: TRAMADOL HCL 50 MG TAB PO PRN (12:49)
--- NOTE | 2023-07-22 13:47 | P.RH.PN ---
Estimated Length of Stay: 16 Expected Discharge Date: 08/05/23 Discharge Disposition Plan: Home Family Support: Yes [facility] Goal: Mobility, Transfers, Self Care Vital Signs: Last Vital Signs Temp 96.8 F 07/22/23 06:36 Pulse 68 07/22/23 06:36 Resp 17 07/22/23 12:49 BP 115/58 L 07/22/23 06:36 Pulse Ox 96 07/22/23 12:49 Laboratory: Laboratory Last Values WBC 8.80 thou/uL (4.3-10.9) 07/21/23 07:27 RBC 3.03 M/uL (3.86-4.86) L 07/21/23 07:27 Hgb 9.6 g/dL (12.0-15.0) L 07/21/23 07:27 Hct 28.9 % (36.0-45.0) L 07/21/23 07:27 MCV 95.4 fL (80-100) 07/21/23 07:27 MCH 31.7 pg (27.0-35.0) 07/21/23 07:27 MCHC 33.2 g/dL (32.0-36.0) 07/21/23 07:27 RDW 18.4 % (12.1-15.2) H 07/21/23 07:27 Plt Count 330 thou/uL (152-406) 07/21/23 07:27 MPV 9.7 fL (7.6-11.3) 07/21/23 07:27 Neutrophils % 72.4 % (41.7-73.7) 07/21/23 07:27 Lymphocytes % 15.0 % (15.3-44.8) L 07/21/23 07:27 Monocytes % 7.5 % (3.3-12.3) 07/21/23 07:27 Eosinophils % 3.7 % (0-4.4) 07/21/23 07:27 Basophils % 1.4 % (0-1.3) H 07/21/23 07:27 Absolute Neutrophils 6.4 K/uL (1.8-8.0) 07/21/23 07:27 Absolute Lymphocytes 1.3 K/uL (0.7-4.9) 07/21/23 07:27 Absolute Monocytes 0.7 K/uL (0.1-1.3) 07/21/23 07:27 Absolute Eosinophils 0.3 K/uL (0-0.5) 07/21/23 07:27 Absolute Basophils 0.1 K/uL (0-0.5) 07/21/23 07:27 Sodium 134 mEq/L (136-145) L 07/21/23 07:27 Potassium 4.1 mEq/L (3.5-5.1) 07/21/23 07:27 Chloride 104 mEq/L (98-107) 07/21/23 07:27 Carbon Dioxide 26 mEq/L (21-32) 07/21/23 07:27 Anion Gap 8.1 mEq/L (5.0-15.0) 07/21/23 07:27 BUN 22 mg/dL (7-18) H 07/21/23 07:27 Creatinine 0.39 mg/dL (0.55-1.02) L 07/21/23 07:27 Est GFR (CKD-EPI) 98 ml/min (=/>90) 07/21/23 07:27 Glucose 92 mg/dL (74-106) 07/21/23 07:27 Calcium 8.1 mg/dL (8.5-10.1) L 07/21/23 07:27 Magnesium 2.3 mg/dL (1.6-2.4) 07/21/23 07:27 Albumin 2.3 g/dL (3.4-5.0) L 07/21/23 07:27 Prealbumin 6.3 mg/dL (20-40) L 07/21/23 07:27 Urine Color Yellow (Yellow) 07/20/23 18:15 Urine Clarity Turbid (Clear) H 07/20/23 18:15 Urine pH 6.5 (5.0-7.0) 07/20/23 18:15 Ur Specific [place] 1.029 (1.005-1.030) 07/20/23 18:15 Glucose (UA)(Auto) Negative (Negative) 07/20/23 18:15 Urine Ketones Negative (Negative) 07/20/23 18:15 Urine Blood Negative (Negative) 07/20/23 18:15 Urine Nitrite Negative (Negative) 07/20/23 18:15 Urine Bilirubin Negative (Negative) 07/20/23 18:15 Urine Urobilinogen 2+ (Normal) H 07/20/23 18:15 Ur Leukocyte Esterase 75 Deepak/uL (Negative) H 07/20/23 18:15 Urine RBC 5-10 /HPF (None Seen) H 07/20/23 18:15 Urine WBC <5 /HPF (<5) 07/20/23 18:15 Ur Squamous Epith Cells <5 /HPF (None Seen) 07/20/23 18:15 U Non-Squamous Epi Cells <5 /HPF (None Seen) 07/20/23 18:15 Unidentified Crystals Few /HPF (None Seen) 07/20/23 18:15 Urine Bacteria <20 /HPF (<20) 07/20/23 18:15 Urine Yeast (Budding) Trace /HPF (None Seen) H 07/20/23 18:15 Urine Culture Reflexed Not needed 07/20/23 18:15 Urine Total Protein Trace (Negative) H 07/20/23 18:15 SARS-CoV-2 Rap RNA(RT-PCR) Negative (NEGATIVE) 07/20/23 21:10 Weight: 221 lb Wound Present: Yes Closed Surgical Incision Present: Yes Negative Pressure Wound Therapy Present: No Physician Update: Very low prealbumin and protein supp. TID. BIMS 13. Pain 6/10 on right hip. Sacral stage I. Possible aspiration she has lost dentures and will have minced diet. She is not wanting to follow instructions to do therapy. Summary: Patient's care plan and penitentiary goals have been reviewed and revised as necessary. Please see the Rehabilitation Signature page for all necessary signatures.
[2023-07-22] MEDS: ENSURE ENLIVE 237 ML CAN PO SCH (17:07)
[2023-07-22] MEDS: DULOXETINE 20 MG CAP PO SCH (19:21)
--- NOTE | 2023-07-22 20:12 | CON ---
Date of Consultation: 07/22/2023 Reason For Service: Ulcerated lesion on the right breast skin flaps. The patient has history of mas tectomy 2 years ago. History Of Present Illness: This is the case of an 83-year-old patient admitted to the hospital for rehabilitation. The patient recently had some orthopedic injuries and during the process she was fou nd to have ulceration of the right breast. She says that about 2 years ago she was diagnosed with br east cancer and they did a simple mastectomy, but she does not recall the rest. We have been asking her where she had that done, she says it was done in the institution, but on looking some results, I have not found the surgery done in this institution. She mentioned also [place], she mentioned [facility], she mentioned [facility]. She stated that she received the mastectomy, but never receiv ed any radiation or chemotherapy. That pathology is unknown. She claimed that before she had orthop edic injuries, they were going to do something with that area, I was told it was a mastectomy, but liya hill has no breast in that region. Allergies: ALLERGIES TO CODEINE. Past Medical History: Include arthritis, hypertension, hypothyroidism, right breast cancer, traumati c fractures of L4. Medications: Include Eliquis. Family History: Noncontributory. Surgical History: Apparently is a right mastectomy, but that is all we got at this moment. Review of Systems: No shortness of breath. No chest pain. No fever. Ten points, otherwise, unremarkable. Physical Examination: General: The patient is awake and alert. Eyes: Pupils are equal and reactive. Neck: Supple. No masses palpated. Chest: Bilateral breath sounds. On the right chest, the patient has a large ulcer, it is about 7 x 5 cm, but that ulcer unfortunately looked like a cancer. They have its raised edges and findings wit h ulcerations. Axillary area, I do not feel any masses in that region and cannot rule out metastatic disease in that area. Laboratory Data: Blood work reviewed. Plan: The patient will or need a biopsy of that region to prove recurrent breast cancer, where if liya hill has it, we would like to have it. Now, it is very difficult for us to get any information from her . I did not find anything in this area, it will be nice to review or if we have access to the previo us biopsy results. If not, I will be able to do it during this admission probably here at bedside wi local anesthetic. Oncological service are at bedside, they are involved already. She does not re member which service was the one that treated the cancer before. If this is a recurrent breast cance r, she may need resection of breast skin flaps and also we may need to consult Oncology for the possi bility of chemo-radiation therapy. I am going to try to see and see if I find more information in is patient. In the mean time she is getting Medihoney, does not matter at this moment if she has can cer, then she will need that removed. NAGI/KAIN Voice ID: [id number] Report ID: [id number]
[2023-07-23] MEDS: ONDANSETRON 4 MG (ODT) TAB PO PRN (07:31)
[2023-07-23] MEDS: CYANOCOBALAMIN 1000MCG/ML INJ IM SCH (09:00)
[2023-07-23] MEDS: FE SULF/FA/VIT B COMP & C TAB PO SCH (09:29)
[2023-07-23] MEDS: CYANOCOBALAMIN 1,000 MCG TAB PO SCH (10:36)
--- NOTE | 2023-07-23 12:27 | PN ---
Date of Progress Note: 07/23/2023 Subjective: Ms. Bridges is 83 years old. Apparently, had a mastectomy done. She does not remember t he place. She does not remember the time. What she remembers is that, they did a biopsy of an ulcer that she has in her breast and there was some kind of plan. She even mentioned surgery, but she bro ke the backbone and she was taken to surgery for that and the other surgery was postponed. "She does not remember the surgery. She does not remember the surgeon, the hospital, or when." I have been d oing a research overnight in our institution trying to see if there is anything that we can find. Margie hill claims, she had some of the surgery done in this institution, but I cannot find it. When this morn ing talked to her again trying to see if she can give me a hint, but still unable to get it. The wou nd looks clean, but I believe it is metastatic disease. There is a large ulcer present and judging b y the previous mastectomy, no radiation, no chemo and this large ulcer, it is cancer and proven other baca. The staff claimed that she told them, she had a biopsy. Once again, did not know anything abo ut that. Plan: So, the plan will be, when the family comes in, we are going to have to ask them a little bit to cooperate with us, at least the name of the hospital, so we can request a direct operative report, not just of the biopsy done recently, but also the previous initial mastectomy. It will be great al so if we see the plan from the Cancer Center because judging by this size of the ulcer, this has been there for probably a year. NAGI/KAIN Voice ID: [id number] Report ID: [id number]
[2023-07-23] MEDS: CRANBERRY FRUIT EXTRACT 200 MG CAP PO SCH (20:21)
[2023-07-24 06:14] LABS: Specific Gravity 1.024 (1.005-1.030); Urine Bacteria None Seen /HPF (<20); Urine Bilirubin NEGATIVE (Negative); Urine Blood Negative (Negative); Urine Clarity Clear (Clear); Urine Color Yellow (Yellow); Urine Glucose NEGATIVE (Negative); Urine Mucus Slight /HPF (None Seen); Urine Protein TRACE (Negative); Urine RBC <5 /HPF (None Seen); Urine Urobilinogen 1+ (Normal); Urine pH 5.5 (5.0-7.0)
[2023-07-24] MEDS: DOCUSATE NA/SENNA CONC 1 TAB PO PRN (19:58)
[2023-07-24] MEDS: TAMSULOSIN 0.4 MG SR CAP PO SCH (20:01)
[2023-07-25 05:10] LABS: Absolute Lymphocytes (CBC) 1.4 K/uL (0.7-4.9); Hematocrit 23.3 % (36.0-45.0); Lymphocytes % 13.9 % (15.3-44.8); MPV 8.7 fL (7.6-11.3); Platelets 421 thou/uL (152-406); RBC Red Blood Cell Count 2.43 M/uL (3.86-4.86)
[2023-07-25 05:23] LABS: Potassium 3.9 mEq/L (3.5-5.1)
--- NOTE | 2023-07-25 13:18 | PN ---
Date of Progress Note: 07/25/2023 Diagnosis: Breast cancer, right breast with nonhealing open wound. Subjective: She is doing well. No complaints. Continued with rehab. I had the conversation with h er and also with the nurse in that area, trying to get some information from her problems. Apparentl y, she has been having these problems for 2-1/2 years. She having done a mastectomy. Just the ulcer and cancer have eroded and made the nipple and areola disappear, most of the breast. The family pre ferred to continue the rehab in this area. They already have helped in setup for her breast cancer t reatment, but they are going to wait until she recovers from this orthopedic doctor to continue. In that case from the surgical standpoint, just reconsult us p.r.n. and she can use any kind of treatmen t for that area from wet-to-dry to just mupirocin just until the area is treated, so we do not expect that to close with the cancer present. We encouraged her to keep it nice and clean and clean with s oap and water. NAGI/KAIN Voice ID: [id number] Report ID: [id number]
[2023-07-25] MEDS: MEGESTROL 400 MG/10 ML UCUP PO SCH (19:41)
--- NOTE | 2023-07-25 21:39 | PN ---
Date of Progress Note: 07/25/2023 Time Of Service: 1:20 p.m. Subjective: Ms. Bridges is resting in bed. She says she does not want to continue with therapy. She wants to go home. This was discussed over the phone with the patient's daughter on the phone and th e patient at bedside. Given the evaluation of the patient's right breast mass, that is likely being stage IV breast cancer, as per Dr. Mccurdy, this was discussed with the patient and she having very low albumin and prealbumin with significant third spacing and a very tough chance of healing, the pat iesandrine and her family are making a decision regarding stopping therapy and going home with home hospice . The family with 2 daughters and the patient will make a decision regarding that. Otherwise, no ot her complaints on subjective. Objective: No fevers, chills. She does have pain in the right breast area with drainage of the woun d, treated with Santyl currently and no plans for immediate surgical debridement by Dr. Mccurdy. Sh e does have the right femoral intertrochanteric fracture, status post repair with likely slow healing and the lower extremity edema. Physical Examination: Vital Signs: Blood pressure 98/58, pulse 78, respiratory rate 20, temperature 98.1, oxygen saturatio n 92%. General: Ms. Bridges is lying in bed. She appears in no acute distress. HEENT: She is normocephalic, atraumatic. Skin: Right breast mass wound is dressed, with mild exudate. Right femoral intertrochanteric fractu re has good hemostasis. Otherwise, no new findings on examination. Laboratory Studies: White blood cell count 10, hemoglobin 7.7, platelets 421. Chemistry: Sodium 13 5, potassium 3.9, chloride 101, carbon dioxide 31, BUN 18, creatinine 0.44, calcium 8.1, glucose 104. Repeat urinalysis from the shows trace of protein and 1+ urobilinogen, otherwise negative. No growth on cultures. X-ray/imaging: No new x-rays or imaging. Consultations: She was seen again by Dr. Mccurdy today and his note suggests to keep the wound sen n and dry, and to apply mupirocin and he does not expect the area to heal. Medications: Eliquis 2.5 mg twice daily, Lipitor 40 mg at bedtime, vitamin B12 1000 units daily, dul oxetine 20 mg at bedtime, Medihoney apply to wound daily, ferrous sulfate 325 mg daily, gabapentin 10 0 mg twice daily, Synthroid mg daily, Imodium 2 mg every 2 hours as needed for loose stool s, Megace 400 mg twice daily, HemocytePlus 1 daily, Ensure Enlive 237 mL 3 times daily, Protonix 40 m g daily, Zofran 4 mg every 4 hours as needed, quetiapine 25 mg daily for sedation, Senokot-S 2 at bed time, Flomax 0.4 mg twice daily, Ultram 50 mg every 4 hours as needed. Progress Made With Physical And Occupational Along With Speech Therapy: Today, with physical therapy , she worked on propelling her wheelchair, covered 2 to 3 feet 6 times, max assist required. She was unable to scoot without significant help. With her occupational therapy, maximal assist for supine to sit transfers and for sit to stand as well. For her speech therapy, she was oriented to temporal concepts with 50% accuracy. Short-term recall demonstrated regarding 2 of 4 unrelated pictures with maximum cues after a minute and generative naming for stating 7 items in a concrete category with max imal assistance. Overall, Ms. Bridges is making very little progress. She is at this point wanting to go home and not wanting to continue with therapy, and this was again discussed. As noted above with the patient's da bahter and the patient herself while in the room. Assessment: Ms. Bridges is an 83-year-old patient in the rehabilitation unit with a right femoral nec k fracture, status post surgical repair. She likely has stage IV breast cancer with open wound to th e right breast and very low prealbumin, and very poor prognosis for significant improvement and recov mervin. She again has severe malnutrition, recent stroke, pulmonary embolus, peripheral arterial diseas e, dyslipidemia, hypertension, hypothyroidism, and again the right breast mass that is open. Plan: 1.At this point, we will continue with physical, occupational, and speech therapy for 3.5 hours, 5 o f 7 days. 2.The patient and her daughters will be discussing discharge to hospice and will at that point disco ntinue with therapy if they make that decision. Otherwise, she will continue with all current medica tions and treatment for the wounds with Medihocheri, and all medications as noted above. Comorbidities That Continue To Impact Rehabilitation: Currently what appears to be stage IV breast c ancer is dominating the progress that the patient may make with physical, occupational, and speech th erapy and recovery and healing of her right femoral intertrochanteric fracture. The patient will lik diane be discharged home with home hospice per the family, and they are making a decision regarding mega sHarshad SMITH/KAIN Voice ID: [id number] Report ID: [id number]
[2023-07-26 05:10] LABS: Absolute Lymphocytes (CBC) 0.9 K/uL (0.7-4.9); Hematocrit 23.8 % (36.0-45.0); Lymphocytes % 9.5 % (15.3-44.8); MCV 96.6 fL (80-100); MPV 8.7 fL (7.6-11.3); Platelets 436 thou/uL (152-406); RBC Red Blood Cell Count 2.46 M/uL (3.86-4.86)
[2023-07-26 05:28] LABS: Potassium 4.2 mEq/L (3.5-5.1)
[2023-07-26] MEDS: MEGESTROL 40 MG TAB PO SCH (08:16)
[2023-07-26] MEDS: ACETAMINOPHEN 500 MG TAB PO PRN (17:45)
[2023-07-26 18:40] LABS: Absolute Lymphocytes (CBC) 1.1 K/uL (0.7-4.9); MPV 9.7 fL (7.6-11.3); Potassium 4.4 mEq/L (3.5-5.1)
[2023-07-26 18:47] LABS: Hematocrit 27.1 % (36.0-45.0); Lymphocytes % 9.4 % (15.3-44.8); MCV 94.4 fL (80-100); Platelets 340 thou/uL (152-406); RBC Red Blood Cell Count 2.88 M/uL (3.86-4.86)
[2023-07-26] MEDS: GABAPENTIN 100 MG CAP PO SCH (19:57)
[2023-07-26 21:21] LABS: Anisocytosis 1+; Blood Morphology Comment NOTED (NOT SEEN); Platelet Estimate ADEQ; Polychromasia SLIGHT; White Blood Cell Scan OK (OK)
[2023-07-27 07:23] LABS: Hematocrit 23.6 % (36.0-45.0); Lymphocytes % 12.9 % (15.3-44.8); MCV 96.9 fL (80-100); MPV 8.7 fL (7.6-11.3); Platelets 386 thou/uL (152-406); RBC Red Blood Cell Count 2.43 M/uL (3.86-4.86)
--- NOTE | 2023-07-27 07:44 | PN ---
Date of Progress Note: 07/26/2023 Time Of Service: 1:30 p.m. Subjective: Ms. Bridges is lying in bed, eating soup and she has chopped meats, and her daughter is a t bedside and her grandson is also at the bedside. She was very communicative and said that she want ed to go home and that when asked why she is not participating, she says she would fold the arms and tell them no, but she would do it in a joking fashion. However, the therapists are not necessarily f inding that, she refuses and would not easily be able to get out of bed and cooperate with therapy. This was again discussed with the patient's daughter, and also yesterday we had discussed the possibi lity of hospice given the findings of the breast mass. Today, the patient's daughter said that as fa r as she is aware, there was a workup done to look for staging and the mass was the only location whe re there is this tumor and that is in the breast, and there were no other clear areas of metastases. The plan was to have a mastectomy, where she fell and this was 2 days before that planned surgery an d ended up with a fracture of the hip, and then rehabilitation now after hip surgery repair. Objective: She does report some diffuse pain, depression, anxiety with lack of enthusiasm for therap y. She did have a low-grade temperature earlier today around 99.5. She does have no blood draw for cultures. She does have wound breakdown and of course the area of breast cancer in the right breast, where the tissue is very friable and treated with Medihoney, so she has a sepsis rule out in place w ith procalcitonin and lactic acid and chest x-ray as well, along with blood cell count to rule out a systemic infection. Physical Examination: Vital Signs: Blood pressure 96/57, pulse 85, respiratory rate 16, temperature 99.5, oxygen saturatio n 94%. General: Ms. Bridges is sitting in bed, in no significant distress. HEENT: She appears normocephalic, atraumatic. Sclerae anicteric. Oropharynx is pink and moist. Neck: Supple. Chest: Clear. Skin: She has good hemostasis at the right femoral intertrochanteric fracture site. Laboratory Studies: Today, white blood cell count 9.6, hemoglobin 8.1, platelets 436. Sodium 133, p otassium 4.2, chloride 99, carbon dioxide 32, BUN 18, creatinine 0.47, glucose 109, calcium 8.3. X-ray/imaging: No recent x-rays or imaging. Medications: Medications have been reviewed. She does have Extra Strength Tylenol for fever. She h as Eliquis for DVT prophylaxis, Lipitor for dyslipidemia, vitamin B12 for low vitamin B12 levels, Cym august 20 mg daily for pain and depression, Medihoney to apply to wounds daily, ferrous sulfate 325 mg daily, gabapentin 200 mg twice daily, Synthroid 0.112 mg daily, Imodium for constipation, Megace for poor appetite, HemocytePlus for anemia, Ensure Enlive for very low protein/prealbumin of 7, Ultram 5 0 mg every 4 hours for pain, Flomax for urinary retention, Senokot-S for constipation, Seroquel for a gitation and insomnia along with Protonix for GE reflux. Progress Made With Physical, Occupational, And Speech Therapy: Today, with physical therapy, maximum assistance needed for right lower extremity to slowly feet to the side of the bed with ma ximum assistance for rolling on from truncal positioning to become upright while sitting in bed. Max imum assistance to sit in the wheelchair. She was agreeable to in the wheelchair, maximum assistance to allow her to . She did complete 5 feet 7 times on level surface with the wh eelchair, refused to try any further after that. With occupational therapy, she did report significa nt pain. She is weightbearing as tolerated with the right lower extremity fracture. She was then batista pervision for oral hygiene. She did participate with 2-pound dowel deana to improve strength and abili ty to transfer into a rolling walker. With speech therapy, she was oriented to temporal concepts wit h 75% accuracy, divergent naming skills, used to name 7 items per concrete category with maximum verb al cues. Ms. Bridges is making slow progress with physical, occupational, and speech therapy. She appears to h ave components, likely depression inhibiting her from doing very well. She also has the b reast mass, likely breast cancer and that is on her. Assessment: Ms. Bridges is an 83-year-old patient in the rehabilitation unit with a right intertrocha nteric fracture, status post surgical repair. She likely has breast cancer on the right, potential s tage IV. However, the patient's daughter says it is not that, it is just localized. She has very po or prealbumin and very poor healing due to that. She has multiple protein supplements, and has been eating chicken soup and multiple high-protein diet. She had stroke, peripheral artery disease, hyper tension, hypothyroidism, dyslipidemia. Plan: 1.Continue with physical, occupational, and speech therapy for 3.5 hours, 5 of 7 days. 2.She has multiple medical conditions as noted above. They are addressed by continuing her current medications. Comorbidities That Continue To Impact Rehabilitation: The most bothersome issue is right breast mass , likely potential stage IV breast cancer. The patient's daughter discussed the potential of hospice care for going home and subsequently to have that mastectomy, which was a planned procedure prior to the fall. SARAH/KAIN Voice ID: [id number] Report ID: [id number]
--- NOTE | 2023-07-27 07:51 | RAD REPORT ---
EXAM DESCRIPTION: Chanell Single View07/27/2023 4:35 am CLINICAL HISTORY: July 21, 2023 COMPARISON: Cough FINDINGS: Lungs appear clear of acute infiltrate. Heart is mildly enlarged. Haziness left lung base unchanged probably chronic. IMPRESSION: No acute abnormalities displayed
--- NOTE | 2023-07-27 21:03 | PN ---
Date of Progress Note: 07/27/2023 Time Of Service: 1:15 p.m. Subjective: Ms. Bridges is out of the bed in the chair beside the bed and she appears to be somewhat more engaged today than yesterday in therapy. Her daughter is at bedside. Her options for where to continue therapy following her discharge were discussed including the option for hospice and for skil led nursing. She of course was seen by Dr. Mccurdy with his impression that the right breast cancer is at stage IV, where the patient's daughter thought it was only in the breast and not involving oth er areas. In the event, plan had been for her to have the mastectomy, but she fell 2 days prior to t he surgery and had the hip fracture. Otherwise, she says she is doing okay, eating well and sleeping better. Review of Systems: She denies fevers or chills. Reports some diffuse pain, especially when ambulating. She has no othe r complaints. Objective: Vital Signs: Blood pressure 115/55, pulse 75, respiratory rate 19, temperature 97.3, oxy gen saturation 92%. General: Ms. Bridges is sitting in a chair. She did drink 2 Ensures, did not eat much of her food, a nd had some soup. HEENT: She is normocephalic, atraumatic. Sclerae anicteric. Oropharynx pink and moist. Neck: Supple. Chest: Clear. Extremities: Mild edema in the right lower extremity, where she has right femoral neck fracture, sta tus post surgical repair. Laboratory Studies: White blood cell count 7.9, hemoglobin 7.9 as well, platelets 386. Sodium 134, potassium 4.0, chloride 99, carbon dioxide 31, BUN 18, creatinine 0.45, glucose 96, calcium 7.9, and yesterday procalcitonin was 0.05 and lactic acid 0.08, all normal. X-ray/imaging: She had chest x-ray done earlier today, which shows no acute abnormalities. Heart is mildly enlarged. Lungs are clear. Haziness of left lung base unchanged, likely to be chronic. Medications: Her medications have been reviewed and remained unchanged. Progress Made With Physical And Occupational Therapy: Today, she did self propel a wheelchair 20 fee t 4 times, moderate assistance was required, and she did complete supine to sit with maximum assistan ce with several breaks. She stood up and raised up in bed and did complete pivot transfer moderate a ssistance. Regarding her occupational therapy, she did refuse to participate, said she was too cold and will do it later and the therapist attended 3 times making her to do therapy, but she refused. I n terms of her speech therapy, she was temporally oriented with 50% accuracy. Seven items were named with moderate to maximum assistance. Ms. Bridges is making very slow progress with therapy as she is refusing at times to participate with the therapist. Mood today was slightly better. Various options were discussed including the potenti al for discharge to hospice and group home. Assessment: Ms. Bridges is an 83-year-old patient in the rehabilitation unit with right hip fracture, status post surgical repair. She does have significant opposition to wanting to do therapy and refu ses at times and actually on multiple occasions. She does per Dr. Mccurdy appear to have stage IV b reast cancer. She has a very low prealbumin, but is now beginning to drink more protein drinks. She has comorbid hypertension, hypothyroidism, dyslipidemia, prior stroke, peripheral artery disease. Plan: 1.Continue physical, occupational, and speech therapy for 3.5 hours, 5 of 7 days. 2.Continue all medications as noted previously and to address her comorbid conditions. She will con tinue DVT prophylaxis with Eliquis 2.5 mg twice daily, Tylenol for pain, Flomax for urinary retention . Senokot-S for constipation. Seroquel for sedation as needed, Synthroid for hypothyroidism, Megace for poor appetite. Comorbidities That Continue To Impact Her Rehabilitation: Her difficulty with wanting to continue th erapy has been a challenge on a daily basis and the patient keeps reporting she will cooperate with a t times and refuses. In addition, the apparent stage IV breast cancer is a significant factor, perha ps impacting her ability to heal and admits the protein level is improving significantly. Her pre-albumin has remained low. LB/MODL Voice ID: [id number] Report ID: [id number]
[2023-07-28 04:53] LABS: Absolute Lymphocytes (CBC) 1.2 K/uL (0.7-4.9); Hematocrit 23.3 % (36.0-45.0); Lymphocytes % 20.8 % (15.3-44.8); MCV 96.6 fL (80-100); MPV 8.4 fL (7.6-11.3); Platelets 409 thou/uL (152-406); RBC Red Blood Cell Count 2.41 M/uL (3.86-4.86)
[2023-07-28 05:23] LABS: Albumin 1.9 g/dL (3.4-5.0); Magnesium 2.3 mg/dL (1.6-2.4); Potassium 3.9 mEq/L (3.5-5.1); Prealbumin 8.6 mg/dL (20-40)
--- NOTE | 2023-07-28 19:08 | PN ---
Date of Progress Note: 07/28/2023 Time Of Service: 1:30 a.m. Subjective: Ms. Bridges is in the gym first time. I have seen her in the gym at lunchtime and she is participating better with therapy today. Her daughter is also in the gym, one of her daughters, the re was the second daughter there that she stepped out. She does not report any new complaints. Justin sommer has at the hip fracture site, some mild pain, which increases to more than moderate when standing a nd attempting to ambulate. Otherwise, she denies any other complaints. There is pain in the right b reast area where she has likely the stage IV breast cancer. Review of Systems: She denies any fevers, chills. No nausea or vomiting. Has mild right hip pain and right breast area pain again from the cancer which is kind of broken through the skin with necrosis and is being treat ed with Medihocheri. Objective: Vital Signs: Blood pressure 100/53, pulse 74, respiratory rate 16, temperature 98.1, oxy gen saturation 94%. General: Ms. Bridges is sitting in a chair. HEENT: She appears normocephalic, atraumatic. Sclerae anicteric. Oropharynx pink and moist. Neck: Supple. Chest: Clear. Extremities: Mild edema in the lower extremities, worse in the right side. She has good hemostasis and the area of necrotic tissue in the right breast area, that is again addressed with Medihoney. Laboratory Studies: White blood cell count 5.7, hemoglobin 7.8, platelets 409. Sodium 135, potassiu m 3.9, chloride 101, BUN 23, creatinine 0.44, calcium 7.8, albumin 1.9, prealbumin 8.6. X-ray/imaging: No new x-rays or imaging studies. Medications: Medications have been reviewed and remained unchanged. Progress Made With Physical And Occupational Therapy: Today with her occupational therapy, contact g uard assist, upper body dressing, lower body dressing, moderate assistance required, ceokrd-ws-iwi luiza thao was dependent and that was done twice and again required maximum assistance. For speech, she was oriented to temporal orientation questions with 100% accuracy and maximum cues were given. She u sed remote temporal orientation and calculation to answer questions with 7% accuracy, again with maxi mum assistance. With physical therapy, moderate assistance to propel a wheelchair, 20 feet 4 times. Ms. Bridges has been making slow progress overall with physical, occupational, and speech therapy and at times she has not cooperated to a full 3 hours of therapy a day, but today she has been more coope rative and has participated to a better degree. Assessment: Ms. Bridges is an 83-year-old patient in rehabilitation unit with a right femoral neck fr acture, status post surgical repair. She appears to have significant depression and not necessarily wanted to fully cooperate with therapy. She also has appears to be stage IV breast cancer in the rig ht breast along with hypertension, hypothyroidism, dyslipidemia, stroke, peripheral arterial disease, malnutrition, which is insignificant. Plan: 1.Continue with physical, occupational, and speech therapy for 3.5 hours, 5 of 7 days. 2.Continue with comorbid condition medications including Eliquis for DVT prophylaxis, Tylenol for pa in, Senokot for constipation, Seroquel for sedation, Synthroid for hypothyroidism, Megace for poor ap petite, and again Eliquis twice daily for DVT prophylaxis. Comorbidities That Are Continuing To Impact Her Rehabilitation: At this point, her participation is the biggest issue making it difficult for her to thrive. The patient and her daughters are looking a t facilities for long-term with the option of the potential for hospice care and those are bein g evaluated and the patient's family will make a decision within the next week. Furthermore, she has significantly low prealbumin, likely because of the breast cancer, and that will likely prolong the time for healing of the right hip fracture and she likely will require mastectomy and further treatment for her breast cancer. SARAH/KAIN Voice ID: [id number] Report ID: [id number]
[2023-07-29] MEDS ORDERED: LIDOCAINE 4% PATCH ONE (12:24)
[2023-07-29] MEDS: LIDOCAINE 4% PATCH TOP SCH (12:24)
--- NOTE | 2023-07-29 13:35 | P.RH.PN ---
Estimated Length of Stay: 16 Expected Discharge Date: 08/04/23 Discharge Disposition Plan: Home Family Support: Yes [facility] Goal: Mobility, Transfers, Self Care Vital Signs: Last Vital Signs Temp 96.8 F 07/29/23 06:49 Pulse 69 07/29/23 06:49 Resp 18 07/29/23 12:22 BP 99/52 L 07/29/23 06:49 Pulse Ox 94 07/29/23 12:22 Laboratory: Laboratory Last Values WBC 5.70 thou/uL (4.3-10.9) 07/28/23 04:32 RBC 2.41 M/uL (3.86-4.86) L 07/28/23 04:32 Hgb 7.8 g/dL (12.0-15.0) L 07/28/23 04:32 Hct 23.3 % (36.0-45.0) L 07/28/23 04:32 MCV 96.6 fL (80-100) 07/28/23 04:32 MCH 32.4 pg (27.0-35.0) 07/28/23 04:32 MCHC 33.6 g/dL (32.0-36.0) 07/28/23 04:32 RDW 20.4 % (12.1-15.2) H 07/28/23 04:32 Plt Count 409 thou/uL (152-406) H 07/28/23 04:32 MPV 8.4 fL (7.6-11.3) 07/28/23 04:32 Neutrophils % 64.4 % (41.7-73.7) 07/28/23 04:32 Lymphocytes % 20.8 % (15.3-44.8) 07/28/23 04:32 Monocytes % 10.3 % (3.3-12.3) 07/28/23 04:32 Eosinophils % 3.7 % (0-4.4) 07/28/23 04:32 Basophils % 0.8 % (0-1.3) 07/28/23 04:32 Absolute Neutrophils 3.6 K/uL (1.8-8.0) 07/28/23 04:32 Absolute Lymphocytes 1.2 K/uL (0.7-4.9) 07/28/23 04:32 Absolute Monocytes 0.6 K/uL (0.1-1.3) 07/28/23 04:32 Absolute Eosinophils 0.2 K/uL (0-0.5) 07/28/23 04:32 Absolute Basophils 0.0 K/uL (0-0.5) 07/28/23 04:32 Platelet Estimate Adeq 07/26/23 18:12 Clumped Platelets Few 07/26/23 18:12 Polychromasia Slight 07/26/23 18:12 Anisocytosis 1+ 07/26/23 18:12 Morphology Comment Noted (NOT SEEN) 07/26/23 18:12 Sodium 135 mEq/L (136-145) L 07/28/23 04:32 Potassium 3.9 mEq/L (3.5-5.1) 07/28/23 04:32 Chloride 101 mEq/L (98-107) 07/28/23 04:32 Carbon Dioxide 30 mEq/L (21-32) 07/28/23 04:32 Anion Gap 7.9 mEq/L (5.0-15.0) 07/28/23 04:32 BUN 23 mg/dL (7-18) H 07/28/23 04:32 Creatinine 0.44 mg/dL (0.55-1.02) L 07/28/23 04:32 Est GFR (CKD-EPI) 95 ml/min (=/>90) 07/28/23 04:32 Glucose 93 mg/dL (74-106) 07/28/23 04:32 Lactic Acid 0.8 mmol/L (0.4-2.0) 07/26/23 21:02 Calcium 7.8 mg/dL (8.5-10.1) L 07/28/23 04:32 Magnesium 2.3 mg/dL (1.6-2.4) 07/28/23 04:32 Lactate Dehydrogenase 330 U/L (84-246) H 07/26/23 18:12 Albumin 1.9 g/dL (3.4-5.0) L 07/28/23 04:32 Prealbumin 8.6 mg/dL (20-40) L 07/28/23 04:32 Procalcitonin < 0.05 ng/mL (<0.050) 07/26/23 18:12 Urine Color Yellow (Yellow) 07/24/23 05:55 Urine Clarity Clear (Clear) 07/24/23 05:55 Urine pH 5.5 (5.0-7.0) 07/24/23 05:55 Ur Specific [place] 1.024 (1.005-1.030) 07/24/23 05:55 Glucose (UA)(Auto) Negative (Negative) 07/24/23 05:55 Urine Ketones Negative (Negative) 07/24/23 05:55 Urine Blood Negative (Negative) 07/24/23 05:55 Urine Nitrite Negative (Negative) 07/24/23 05:55 Urine Bilirubin Negative (Negative) 07/24/23 05:55 Urine Urobilinogen 1+ (Normal) H 07/24/23 05:55 Ur Leukocyte Esterase Negative Deepak/uL (Negative) 07/24/23 05:55 Urine RBC <5 /HPF (None Seen) 07/24/23 05:55 Urine WBC <5 /HPF (<5) 07/24/23 05:55 Ur Squamous Epith Cells None seen /HPF (None Seen) 07/24/23 05:55 U Non-Squamous Epi Cells <5 /HPF (None Seen) 07/20/23 18:15 Unidentified Crystals Few /HPF (None Seen) 07/20/23 18:15 Urine Bacteria None seen /HPF (<20) 07/24/23 05:55 Urine Mucus Slight /HPF (None Seen) 07/24/23 05:55 Urine Yeast (Budding) Trace /HPF (None Seen) H 07/20/23 18:15 Urine Culture Reflexed Not needed 07/24/23 05:55 Urine Total Protein Trace (Negative) H 07/24/23 05:55 SARS-CoV-2 Rap RNA(RT-PCR) Negative (NEGATIVE) 07/20/23 21:10 Smear Scan Ok (OK) 07/26/23 18:12 Weight: 223 lb 1.6 oz Wound Present: Yes Closed Surgical Incision Present: Yes Negative Pressure Wound Therapy Present: No Physician Update: Labs reviewed and prealbumin improved slightly with the Hgb as well. Pain 7/10 in right breast. Not getting up to use the toilet. Stage I sacral ulcer. Now she did not recall she got out of the bed with speech therapy. She has no short term memory. She spent 20 minutes to get out of the bed with max assistance. She took 40 minutes mobilize by wheelchair 75'. Max asssist for most ADLs. Summary: Patient's care plan and rn long term care goals have been reviewed and revised as necessary. Please see the Rehabilitation Signature page for all necessary signatures.
[2023-08-01 06:58] VITALS: BP 118/57; TEMP 97.6
--- NOTE | 2023-08-05 04:57 | DS ---
Date of Discharge: 08/01/2023 Discharge Condition: Good discharge. Discharge Diagnoses: Unilateral hip fracture, that is a right femoral intertrochanteric fracture. D ecrease in physical functioning, dyslipidemia, hypertension, hypothyroidism, postoperative anemia, dy sphagia, decubitus ulcer, right breast cancer with mass, lymphedema, L4 pars fracture, malnutrition. Activity: Touchdown weightbearing, right lower extremity. Followup: With oncologist and general surgeon, Dr. Mccurdy, and primary care physician. Diet: Heart healthy. Medications: Tramadol 50 mg every 4 hours as needed, Flomax 0.4 mg twice daily, Seroquel 25 mg daily as needed, Protonix 40 mg daily, Zofran 4 mg daily, Megace 400 mg twice daily, Medihoney apply to [facility] breast wound and decubitus ulcers daily, Imodium 2 mg every 2 hours as needed, lidocaine patch ap ply topically daily, Synthroid 0.112 mg daily, HemocytePlus 1 tablet daily, gabapentin 200 mg twice d aily, ferrous sulfate 325 mg daily, Ensure Enlive 237 mL 3 times daily, Cymbalta 20 mg daily, Senokot -S 2 at bedtime, vitamin B12 1000 mcg daily, cranberry fruit extract 200 mg twice daily, Lipitor 40 m g at bedtime, Eliquis 2.5 mg twice daily. Allergies: CODEINE WITH SEVERE NAUSEA AND VOMITING. Laboratory Studies: White blood cell count 5.7, hemoglobin 7.8, and platelets 409. Sodium 135, pota ssium 3.9, chloride 101, carbon dioxide 30, BUN 23, creatinine 0.44, glucose 93. Calcium 7.8, magnes ium 2.3. Prealbumin 8.6. Synopsis Of Events That Led To Admission: Ms. Bridges is an 83-year-old patient with breast cancer [facility] plans to perform right mastectomy when she fell 2 days prior to that planned surgery. She fell at home impacting her right hip, developed significant pain and was unable to bear weight. In addition , she was found to have a lumbar compression fracture, which was treated with a brace in place. Also , she was found to have significant lymphedema in the lower extremities. The intertrochanteric fract ure was treated by surgery on the , and she was put at weightbearing as tolerated status to the [facility] lower extremity. Postoperative course in the ICU complicated by hypotension, requiring pressors and IV fluid. She had significant anemia, requiring 2 units of packed red blood cells and 2 units of fresh frozen plasma. She did become hemodynamically stable in ICU. She had an NG tube temporarily placed and that was removed, and she was upgraded to minced and moist food. She began to be evaluate d by Physical Therapy, but did have some postoperative confusion, requiring significant blood pressur e support from midodrine. Her hypothyroidism was addressed with levothyroxine. She had Lovenox for DVT prophylaxis. She had protein supplementation for severe anemia. She also had a TSLO brace requi red out of bed. She had a Morris in place. The plan is to remove the Morris, and bladder training to be done prior to that. Due to her complicated medical condition and risk of further complications, r ehabilitation was determined to be appropriate at an inpatient level. Hospital Course: Throughout her hospitalization, she had fluctuations in blood pressures as noted. She did receive IV fluid. She had pressure support. She maintained normal blood pressures. Her [facility] te blood cell count was only slightly elevated on July 26 to 11.9, but at all other times, her 5 other blood draws were all normal. Her hemoglobin was low around 7.7 on the and remained stabl y low around 7.8 on the prior to her discharge. Sodium was chronically low; at discharge around 135, which is just slightly low. Creatinine was essentially low, but is not to be in a range of abn ormal. Prealbumin was low at 8.6, albumin low at 1.9. She was negative for COVID-19 testing on the . Progress Made With Physical And Occupational Therapy: With physical therapy, by her discharge, she d id have kyphotic posture. In terms of bed mobilization with bed rails, she needed assistance with leela th legs and trunk. She had decreased strength, decreased endurance. She was often times refusing to participate in therapy and requiring mod assist. With rolling walker, she was often refusing at man y times and did not want to ambulate much. She only did about 2 feet with poor tolerance. Had poor endurance, limited range of motion. With wheelchair mobilization, she covered about 40 feet with a l ot of encouragement. She kept complaining of a lot of pain, although her affect did not always match the pain. She appeared to be very apprehensive of falling and frequently refused to do therapy. Sh sergio did not need any long-term goals. She met some of her short-term goals. Regarding her speech ther apy, she was at a minimum assistance for attention. Memory, maximum assistance for some aspects and minimum for others. Comprehension, she was independent. Expression, independent. Intelligibility, independent. 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 With occupational therapy, at discharge, her eating is supervision. Grooming at supervisi on. Bathing, maximum assistance. Upper body dressing, supervision. Lower body dressing, moderate a ssistance. Toileting, moderate assistance. Home activities of daily living: It was recommended susana t she have 24-hour 7 days a week supervision for safety awareness, and she was really dependent on al l activities of daily living. She was then transferred to halfway for continued care. SARAH/KAIN Voice ID: [id number] Report ID: [id number]
== END 2023-08-01 12:20 | DRG 559 ==
LOC: 5TH 07-20 15:00
PROVIDERS: ADMIT Psychiatry & Neurology Neurology with Special Qualifications in Child Neurology; ATTEND Psychiatry & Neurology Neurology with Special Qualifications in Child Neurology
PROC: 0T9B70Z Drainage of Bladder with Drainage Device, Via Natural or Artificial Opening (ICD-10-PCS; principal; 2023-07-25)
DX: S72.141D Displaced intertrochanteric fracture of right femur, subsequent encounter for closed fracture with routine healing (principal); E43 Unspecified severe protein-calorie malnutrition; I26.99 Other pulmonary embolism without acute cor pulmonale; E44.0 Moderate protein-calorie malnutrition; S32.049D Unspecified fracture of fourth lumbar vertebra, subsequent encounter for fracture with routine healing; C50.911 Malignant neoplasm of unspecified site of right female breast; K59.00 Constipation, unspecified; E78.5 Hyperlipidemia, unspecified; I10 Essential (primary) hypertension; E03.9 Hypothyroidism, unspecified; D64.9 Anemia, unspecified; R13.10 Dysphagia, unspecified; I89.0 Lymphedema, not elsewhere classified; F32.A Depression, unspecified; F41.9 Anxiety disorder, unspecified; M19.90 Unspecified osteoarthritis, unspecified site; I73.9 Peripheral vascular disease, unspecified; R45.1 Restlessness and agitation; G47.00 Insomnia, unspecified; K21.9 Gastro-esophageal reflux disease without esophagitis; Z68.37 Body mass index [BMI] 37.0-37.9, adult; Z86.73 Personal history of transient ischemic attack (TIA), and cerebral infarction without residual deficits
CPT/HCPCS: 36415; 71045; 80048; 81001; 82040; 83605; 83615; 83735; 84134; 84145; 85025; 87077; 87086; 87088; 87186; 87635; 90471; 92523; 92610; 97110; 97112; 97129; 97163; 97165; 97530; 97542; J2001; J3420; Q0162; Q2035